=== PATIENT | female | born 1955 | race African-American/Black ===

== ENCOUNTER 2021-09-26 05:18 | Day surgery (SDC) | payer BC, SELFPAY ==
[2021-09-19 15:51] LABS: Absolute Lymphocyte Count 4.14 X10^3/uL (0.83-4.51); Basophil# 0.08 X10^3/uL; Basophil% 0.7 % (0-1); Eosinophil# 0.19 X10^3/uL; Eosinophils% 1.7 % (0-5); Hematocrit 40.6 % (37-47); Hemoglobin 13.2 g/dL (12.0-15.0); Lymphocyte # 4.14 X10^3/ul (0.83-4.51); Lymphocyte % 36.3 % (19-41); Mean Corp Hgb Conc 32.5 g/dL (32-36); Mean Corpuscular Hgb 28.9 pg (27.0-32.0); Mean Corpuscular Volume 88.8 fL (81-99); Mean Platelet Vol. 9.2 fl (6.2-12.0); Monocyte# 0.91 X10^3/uL; NRBC Flagged by Analyzer 0 % (0-5); Neutrophil # 6.03 X10^3/uL (2.7-7.7); Neutrophil % 52.9 % (47-70); Platelet Count 327 K/mm3 (150-450); RBC Distribution Width CV 12.4 % (11.6-14.6); RBC Distribution Width SD 40.3 fl (35.1-43.9); Red Blood Count 4.57 M/mm3 (4.2-5.4); White Blood Count 11.4 K/mm3 (4.4-11.0)
[2021-09-19 16:03] LABS: International Normalized Ratio 1.1; Prothrombin Time (Protime)PT. 13.2 SECONDS (11.7-14.9)
[2021-09-19 16:04] LABS: Partial Thromboplast Time 25.4 Seconds (24.1-36.2)
[2021-09-19 16:19] LABS: Anion Gap 7 (5-15); BUN 12 mg/dL (7-18); BUN/Creat Ratio 13.4 RATIO (10-20); Calcium,Total 9.3 mg/dL (8.5-10.1); Chloride 105 mmol/L (98-107); EST Glomerular Filtration Rate 67 mL/min (>60); Est Glom Filt Rate - Afr Amer 82 mL/min (>60); Glucose 104 mg/dL (74-106); Potassium 3.8 mmol/L (3.5-5.1); Sodium Level 139 mmol/L (136-145)
[2021-09-19 16:27] LABS: Hemoglobin A1c 6.8 % (3.8-5.6)
[2021-09-26] VITALS (11 sets, daily range): BP systolic 106–137; BP diastolic 55–72; PULSE 66–90; RESP 16–18; TEMP 35.8–37.2; O2SAT 94–100; BMI 23.3
--- NOTE | 2021-09-26 | KNEE_PTH ---
PATIENT: CHELITA BUSCH LOC: [facility] – [place] U#:[id number] AGE/SX: 65/F ROOM: RE09/26/[address]: Dr. Reed Lopez DO : 1955 BED: DIS: 09/26/2021 SPEC #: [id number] RECD: 09/26/21 11:13 STATUS: JOSE F GERARDO #: [id number] MAYRA: 09/26/21 00:[address]: Reed Lopez DEPT: SURGICAL PATHOLOGY RECD BY: Gabriel Pitts ENTERED: 09/26/21 11:13 SP TYPE: TOTAL KNEE OTHR DR: Dr. Zoila Sweeney DO Tissues: Knee, NOS Procedures: Decalcification bone/plaque Surgery Specimen Level IV HEADER OPERATION: ERAS, total knee replacement robotic arm assist PRE-OP DIAGNOSIS: Grade 4 osteoarthritis left knee TISSUE SUBMITTED: Left knee bone MICROSCOPIC DIAGNOSIS Bone and tissue of left knee, total knee resection: Severe degenerative joint disease. Soft tissue with vessel friend containing microcalcifications. AM:chayo 09/29/2021 MICROSCOPIC DESCRIPTION Slides are reviewed. GROSS DESCRIPTION Received is one container designated left knee bone. The specimen consists of multiple fragments of ramires-yellow bone measuring in aggregate 16 x 9 x 2 cm. Also in the specimen container are multiple fragments of yellow-white soft tissue measuring in aggregate 2 x 1 x 0.6 cm. A number of bony fragments contain articular surfaces consistent with tibial plateau and femoral condyle and displaying prominent osteophyte formation, eburnation, and bone erosion. Technical Specialist Cytogenetics sections are submitted in two cassettes as follows: 1 - soft tissue, 2 - bone after decalcification. / AM:chayo 09/26/2021 TC:5 [facility]: [id number], [id number]
[2021-09-26] MEDS: Celecoxib 200 MG Capsule 400 MG PO (06:02)
[2021-09-26] MEDS: Acetaminophen 500 MG Tablet 1000 MG PO (06:03)
[2021-09-26] MEDS: Gabapentin 600 MG Tablet PO (06:03)
[2021-09-26 06:11] LABS: Bedside Glucose 296 mg/dL (70-110)
[2021-09-26] MEDS: Lactated Ringers 1,000 ML 15 ML IV (06:13)
[2021-09-26] MEDS: Insulin Lispro 100 UNIT/ML INSULN.PEN SC (06:15)
[2021-09-26] MEDS: Lactated Ringers 1,000 ML 125 ML IV (07:00)
[2021-09-26] MEDS: Cefazolin 2 GM in 0.9% Normal Saline 100 ML IV (07:45)
[2021-09-26] MEDS: TXA 1000mg in NS100 100ml (IVPB at Incision) 660 MG IV (07:55)
[2021-09-26] MEDS: dexAMETHasone 10 MG/ML Vial IV (08:00)
[2021-09-26] MEDS: Lactated Ringers 1,000 ML 999 ML IV (08:30)
[2021-09-26] MEDS: TXA 1000mg in NS100 100ml (IVPB at Closure) 660 MG IV (08:54)
--- NOTE | 2021-09-26 09:09 | RAD_ITS ---
STUDY: X-RAY - LEFT KNEE REASON FOR EXAM: Female, 65 years old. New Total Hip Arthroplasty TECHNIQUE: 2 view(s) of the knee. COMPARISON: None. FINDINGS: There is a 3 component total knee arthroplasty in anatomic position. There are expected post-operative findings. There are no complications. No other significant abnormality is identified. RAD/Knee 1 or 2 Views IMPRESSION: Total knee arthroplasty in anatomic alignment without complications. Electronically Signed: Bhaskar Santiago MD at 12:39 EST , Service support ,
--- NOTE | 2021-09-26 09:11 | PCM.OPRPT ---
Report of Operation Date of Procedure: 09/26/21 Pre-Operative Diagnosis: Post-traumatic OA with retained hardware s/p ACL reconstruction left knee Post-Operative Diagnosis: same Surgery/Procedure Performed:: Removal of tibial hardware, TKR left knee Surgeon: Reed Lopez special tax auditor: Bhaskar Spencer Type of Anesthesia: Spinal Anesthesiologist: Tyson Tyson Estimated Blood Loss (mL): 20 cc Fluids Replaced: 1000 cc crystalloid Admit VTE Documentation VTE Present on Admission: No VTE Mechan Device Prophylaxis: SCD's and Thigh High DONALD Hose VTE Pharm Prophylaxis ordered?: Yes
[2021-09-26 10:11] LABS: Bedside Glucose 167 mg/dL (70-110)
[2021-09-26] MEDS: Scopolamine 1mg/72hr Patch 1 PATCH TD (10:12)
== END 2021-09-26 23:59 | disposition home or self-care (01) ==
LOC: SDC 05:22 → AC 05:23
PROVIDERS: Anesthesiology; PCP Family Medicine; Referring Provider Orthopaedic Surgery; Visit Provider Orthopaedic Surgery
PROC: 0SRD0JZ Replacement of Left Knee Joint with Synthetic Substitute, Open Approach (ICD-10-PCS; CPT 27447; principal; 2021-09-26 07:00)
DX: M17.32 Unilateral post-traumatic osteoarthritis, left knee (principal); J44.9 Chronic obstructive pulmonary disease, unspecified; E11.9 Type 2 diabetes mellitus without complications; Z47.2 Encounter for removal of internal fixation device; E78.00 Pure hypercholesterolemia, unspecified; I25.2 Old myocardial infarction; K76.0 Fatty (change of) liver, not elsewhere classified; I10 Essential (primary) hypertension; F41.9 Anxiety disorder, unspecified; M19.90 Unspecified osteoarthritis, unspecified site; K21.9 Gastro-esophageal reflux disease without esophagitis; G25.81 Restless legs syndrome; Z79.84 Long term (current) use of oral hypoglycemic drugs; Z79.82 Long term (current) use of aspirin; Z79.899 Other long term (current) drug therapy
CPT/HCPCS: 20680; 27447; 01402; 36415; 73560; 80048; 82962; 83036; 83735; 85025; 85610; 85730; 87081; 88305; 88311; 97162; C1776; J7030; J7120; J2405

== ENCOUNTER 2021-11-29 09:15 | Outpatient (RCR) | payer BC, SELFPAY ==
[2021-11-15 08:16] VITALS: BP 161/88; PULSE 116; TEMP 35.5; BMI 21.2
--- NOTE | 2021-11-15 08:59 | PCM.WC.HP ---
History of Present Illness Date of Service: 11/15/21 Chief Complaint: Dehiscent, infected surgical wound, left knee History of Wound: This 65-year-old female who presents as a referral from her orthopedic surgeon relative to dehiscent, infected surgical wound on the left anterior knee. Patient initially underwent left total knee replacement surgery in 1987. She required replacement of her left knee hardware, the procedure which was performed on September 26, 2021. Her most recent revisional surgical procedure was performed by Dr. Reed Lopez. Approximately 2 weeks postop, the karyn were removed from her surgical incision, and her surgical incision busted open. She suffered a dehiscence, which subsequently became infected. The patient has undergone 2 courses of oral amoxicillin. She is currently on her second course. She relates some small amount of drainage from the inferior portion of the dehiscent incision. She denies constitutional symptoms of widespread infection, such as fever, sweats and chills, etc. She is currently ambulatory with the aid of crutches. Patient is a known diabetic. [facility], [facility] Medical History (Updated 11/15/21 @ 09:[address] Arvin Parra MD) Anxiety Arthritis Back pain Cardiology follow-up encounter COPD (chronic obstructive pulmonary disease) Diabetes Diabetes mellitus Dietary restriction Fatty liver Gastric reflux High cholesterol History of ankle fracture History of echocardiogram History of edema History of heart attack History of myocardial infarction History of pain when walking History of stress test Hx of mitral valve prolapse Hyperlipidemia Hypertension Low iron Lumbar disc disease Osteoarthritis (arthritis due to wear and tear of joints) Restless legs Scoliosis Smoker Surgical wound dehiscence Tobacco abuse Tobacco abuse counseling Wears glasses Wound infection after surgery Home Medications Healthy Beets 1 cap PO/SL DAILY 09/12/21 [History Last Taken Unknown] albuterol sulfate [ProAir HFA] 1 inh INHALATION Q6H PRN 09/12/21 [History Last Taken Unknown] aspirin [Aspir-Low] 81 mg PO DAILY 09/12/21 [History Last Taken Unknown] cholecalciferol (vitamin D3) [Vitamin D3] 125 mcg PO DAILY 09/12/21 [History Last Taken Unknown] clopidogrel [Plavix] 75 mg PO DAILY 09/12/21 [History Last Taken Unknown] empagliflozin [Jardiance] 25 mg PO DAILY 09/12/21 [History Last Taken Unknown] ferrous sulfate [iron] 325 mg PO DAILY 09/12/21 [History Last Taken Unknown] fluticasone propion-salmeterol [Advair Diskus] 1 inh INHALATION BID 09/12/21 [History Last Taken Unknown] isosorbide mononitrate 60 mg PO DAILY 09/12/21 [History Last Taken Unknown] losartan 50 mg PO DAILY 09/12/21 [History Last Taken Unknown] metformin 1,000 mg PO BID 09/12/21 [History Last Taken Unknown] metoprolol tartrate 50 mg PO BID 09/12/21 [History Last Taken Unknown] pantoprazole 20 mg PO DAILY 09/12/21 [History Last Taken Unknown] pravastatin 20 mg PO QHS 09/12/21 [History Last Taken Unknown] ropinirole 0.5 mg PO QHS 09/12/21 [History Last Taken Unknown] tiotropium bromide [Spiriva Respimat] 2 puff INHALATION DAILY 09/12/21 [History Last Taken Unknown] acetaminophen 500 mg PO Q6H PRN 11/15/21 [History Last Taken Unknown] amoxicillin-pot clavulanate 1 tab PO BID 11/15/21 [History Last Taken Unknown] cyanocobalamin (vitamin B-12) [B-12 DOTS] 500 mcg PO DAILY 11/15/21 [History Last Taken Unknown] empagliflozin [Jardiance] 25 mg PO DAILY 11/15/21 [History Last Taken Unknown] fluticasone propion-salmeterol [Advair Diskus] 1 inh INHALATION BID 11/15/21 [History Last Taken Unknown] heart beet 500 mg DAILY 11/15/21 [History Last Taken Unknown] lactobacillus combination no.4 [Probiotic] 3,000 mmu cells PO DAILY 11/15/21 [History Last Taken Unknown] oxycodone 5 mg PO BID PRN 11/15/21 [History Last Taken Unknown] sertraline [Zoloft] 25 mg PO DAILY 11/15/21 [History Last Taken Unknown] tiotropium bromide [Spiriva Respimat] 2 puff INHALATION DAILY 11/15/21 [History Last Taken Unknown] Allergy/AdvReac Type Severity Reaction Status Date / Time cortisone Allergy Rash Verified 09/26/21 05:55 glyburide Allergy Swelling Verified 09/26/21 05:55 latex Allergy Rash Verified 09/26/21 05:55 Sulfa (Sulfonamide Allergy Rash Verified 09/26/21 05:55 Antibiotics) Surgical History History of ankle surgery History of bunionectomy History of cardiac catheterization Hx of breast surgery Hx of heart artery stent Hx of knee surgery Social History Smoking Status: Current every day smoker tobacco type: cigarettes Vital Signs Vital Signs Vital Signs: 11/15/21 08:16 Temperature 95.9 F L Temperature Source Temporal Pulse Rate 116 H Blood Pressure 161/88 H Blood Pressure Mean 112 Blood Pressure Source Monitor Weight Weight: 136 lb Body Mass Index (BMI) 21.2 Physical Exam Const alert, oriented x3, no apparent distress, average body habitus and well nourished Constitutional Narrative: The patient is of average body habitus. General Appearance: cooperative, comfortable, well kempt and well developed Orientation / Consciousness: awake, oriented to person, oriented to place and oriented to time Exam Limitations: no limitations HEENT normocephalic, head/scalp atraumatic and hearing grossly normal bilaterally Head and Scalp: normal to inspection, normocephalic and atraumatic External Ear: external ears normal Eyes PERRL and EOMs intact bilaterally General Eye: normal appearance of both eyes Resp normal respiratory effort, normal air movement, no retractions and no use of accessory muscles Effort and Inspection: able to speak in complete sentences and symmetric chest movement Extremity no calf tenderness and no pedal edema Extremity Narrative: There is no significant swelling or edema in the patient's lower extremities. No significant chronic skin changes. General Extremity: Negative for clubbing or cyanosis Skin Wound Narrative: A dehiscent vertical surgical incision is noted on the anterior aspect of the left knee. There is a large eschar present. Mild isis-incisional erythema is noted. There is slight drainage noted from the inferior portion of the incision. Dimensions are documented elsewhere. There is a large amount of bioburden and nonviable tissue. Neuro oriented x3, CN's II-XII intact bilaterally and moves all extremities Sensorium / Orientation: awake, alert, oriented to person, oriented to place and oriented to time Psych Appearance: grossly normal and appropriate Attitude: calm Activity / Motor Behavior: appropriate eye contact Speech: normal speech Mood & Affect: euthymic mood Thought Process: normal thought process Thought Content: normal thought content Attention / Concentration: attention grossly intact Debridement Note Debridement Note Wound debrided: Left anterior knee Laterality: Left Type of Debridement: Excisional debridement Anesthesia Used: 5% Lidocaine Gel Depth: Down to and including healthy tissue and in the subcutaneous layer Percentage of wound debrided: 100 Instrument Used: 5mm curette, Forceps and - (Cuticle scissors) Tissue Removed: Bioburden, eschar, and nonviable tissue Severity: Fat Layer Exposed Amount of bleeding with debridement: None Patient tolerated procedure: Patient tolerated procedure well Post-Debridement Measurements and Additional Note: Post-Debridement Measurements/Treatment - Nurse 1 - General Ulcer Assessment Start: 11/15/21 08:15 Freq: Status: Active Protocol: ROGELIO Activity Type Activity Date Activity User E-Sign Co-Sign Detail Recorded Client Recorded Date Recorded By Document 11/15/21 08:16 KO [id number] 11/15/21 08:31 KO 11/15/21 08:16 - Today's Visit Information Type of service Initial Visit Arrival Mode Ambulatory,Cane Patient Identification Verified (Name & Yes ) Patient Requires Transmission-Based No Precautions Safety Precautions NA Height and Weight Height 5 ft 7 in Weight 136 lb Weight in Pounds 136.0 lbs Body Mass Index (BMI) 21.2 BMI Classification Normal BSA - Gia 1.72 Vital Signs Temperature (97.8 F-99.1 F) 95.9 F L Temperature Source Temporal Pulse Rate (60-100) 116 H Pulse Location Monitor Blood Pressure (90/60-120/80) 161/88 H Blood Pressure Mean 112 Source Monitor History Since Last Visit- (Skip if this is Patient's initial visit) Has dressing in place as prescribed Yes Left Footwear Regular Shoe Right Footwear Regular Shoe Pain Scale: 0-10 Numeric Is Patient Pain Free? Yes [facility] Nurse 1 - General Ulcer Measurement Start: 11/15/21 08:15 Freq: Status: Active Protocol: Activity Type Activity Date Activity User E-Sign Co-Sign Detail Recorded Client Recorded Date Recorded By Document 11/15/21 08:16 KO [id number] 11/15/21 08:31 KO 11/15/21 08:16 Wound Center Nurse 1 #1 Left knee -Combined with other wound No -Current Size (cm) - Length 7.8 -Current Size (cm) - Width 1.2 -Current Size (cm) - Depth 0.4 -Total Square Cm 9.36 -Photo Taken No -Tunneling No -Undermining/Tunneling No -Circular Undermining No -Change in Wound Grade/Stage No -Exudate Amt Medium -Exudate Type Serosanguineous -Wound Margin Distinct, Outline Attached -Granulation Amt Small (1-33%) -Granulation Quality Carefree -Slough/Fibrin No -Necrosis Amt Medium (34-66%) -Necrotic Tissue Type Eschar -Structure Exposed N/A -Texture (Isis-wound Skin Appearance) Assessed, Scarring -Moisture (Isis-wound Skin Appearance) No Abnormality, Assessed -Color (Isis-wound Skin Appearance) No Abnormality, Assessed -Temperature (Isis-wound Skin No Abnormality Appearance) (Pt Warm) -Tenderness on Palpation (Isis-wound No Skin Appearance) -Ulcer Cleansing Rinsed/ Irrigated with Saline -Foul Odor after Cleansing No -Anesthetic Used 4% Lidocaine Solution Assessment/Plan Assessment/Plan (1) Surgical wound dehiscence: CODE(S): T81.31XA - Disruption of external operation (surgical) wound, not elsewhere classified, initial encounter QUALIFIERS: Encounter type: initial encounter Qualified Code(s): T81.31XA - Disruption of external operation (surgical) wound, not elsewhere classified, initial encounter (2) Wound infection after surgery: CODE(S): T81.49XA - Infection following a procedure, other surgical site, initial encounter (3) Osteoarthritis (arthritis due to wear and tear of joints): CODE(S): M19.90 - Unspecified osteoarthritis, unspecified site (4) Diabetes mellitus: CODE(S): E11.9 - Type 2 diabetes mellitus without complications QUALIFIERS: Diabetes mellitus type: type 2 Diabetes mellitus long term care phlebotomist insulin use: without half-way use Laterality: left (5) Hyperlipidemia: CODE(S): E78.5 - Hyperlipidemia, unspecified (6) History of myocardial infarction: CODE(S): I25.2 - Old myocardial infarction (7) Hypertension: CODE(S): I10 - Essential (primary) hypertension (8) Scoliosis: CODE(S): M41.9 - Scoliosis, unspecified (9) Lumbar disc disease: CODE(S): M51.9 - Unspecified thoracic, thoracolumbar and lumbosacral intervertebral disc disorder (10) Tobacco abuse: CODE(S): Z72.0 - Tobacco use (11) Tobacco abuse counseling: CODE(S): Z71.6 - Tobacco abuse counseling PLAN: Is a 65-year-old female with a dehiscent, infected surgical wound on the left anterior knee. She is currently on her second course of amoxicillin, and has been advised to continue the medication until completed. Swab cultures have been obtained today for aerobic and anaerobic bacterial growth. We will await these results. We are to initiate the use of collagenase Santyl topically, which will be applied by the patient on a daily basis. She has been instructed in the appropriate means of application. A prescription has been provided. The patient has been advised to stop smoking. She has been advised to consume a healthy, well-balanced diet. Optimization of her glycemic control has been recommended. We are to obtain routine laboratory studies, which will include a CBC, comprehensive metabolic profile, hemoglobin A1c, and serum prealbumin. At this juncture, her dehiscent wound appears to be relatively superficial, and imaging studies are not felt to be warranted at this time. It is doubtful that there is a deep, underlying infection involving the patient's joint hardware. Patient is to return in 1 week for reassessment. Total time: 62 minutes
[2021-11-16 10:25] LABS: Erythrocyte Sedimentation Rate 6 mm/hr (0-30)
[2021-11-16 10:27] LABS: Absolute Lymphocyte Count 3.45 X10^3/uL (0.83-4.51); Absolute Neutrophil Count 3.8 X10^3/uL (2.0-7.7); Basophil# 0.07 X10^3/uL; Basophil% 0.8 % (0-1); Eosinophils% 3.6 % (0-5); Hematocrit 37.7 % (37-47); Hemoglobin 12.8 g/dL (12.0-15.0); Lymphocyte # 3.45 X10^3/ul (0.83-4.51); Lymphocyte % 40.8 % (19-41); Mean Corpuscular Volume 88.3 fL (81-99); Mean Platelet Vol. 9.4 fl (6.2-12.0); Monocyte# 0.81 X10^3/uL; Monocyte% 9.6 % (0-10); NRBC Flagged by Analyzer 0 % (0-5); Neutrophil # 3.78 X10^3/uL (2.7-7.7); Neutrophil % 44.7 % (47-70); Platelet Count 338 K/mm3 (150-450); RBC Distribution Width CV 12.6 % (11.6-14.6); RBC Distribution Width SD 40.8 fl (35.1-43.9); Red Blood Count 4.27 M/mm3 (4.2-5.4); White Blood Count 8.5 K/mm3 (4.4-11.0)
[2021-11-16 10:50] LABS: Hemoglobin A1c 6.9 % (3.8-5.6)
[2021-11-16 11:00] LABS: ALB/GLOB Ratio 1.2 RATIO (0.9-2.4); AST(SGOT) 12 U/L (15-37); Alanine Aminotransfer ALT/SGPT 23 U/L (13-56); Albumin, Serum 3.8 g/dL (3.2-5.0); Alkaline Phosphatase 70 U/L (45-117); Anion Gap 6 (5-15); BUN 9 mg/dL (7-18); BUN/Creat Ratio 10.8 RATIO (10-20); Calcium,Total 9.7 mg/dL (8.5-10.1); Chloride 109 mmol/L (98-107); Creatinine, Serum 0.83 mg/dL (0.55-1.02); EST Glomerular Filtration Rate 73 mL/min (>60); Est Glom Filt Rate - Afr Amer 89 mL/min (>60); Estimated Creatinine Clearance 67.47 ml/min; Globulin 3.3 g/dL (2.2-4.2); Glucose 178 mg/dL (74-106); Prealbumin 28.3 mg/dL (20.0-40.0); Protein, Total 7.1 g/dL (6.4-8.2); Sodium Level 140 mmol/L (136-145)
[2021-11-29 09:13] VITALS: BP 142/81; PULSE 91; TEMP 36.2; BMI 21.2
--- NOTE | 2021-11-29 09:40 | PCM.WC.HP ---
History of Present Illness Date of Service: 11/29/21 Chief Complaint: Dehiscent, infected surgical wound, left knee History of Wound: This 65-year-old female who presents as a referral from her orthopedic surgeon relative to dehiscent, infected surgical wound on the left anterior knee. Patient initially underwent left total knee replacement surgery in 1987. She required replacement of her left knee hardware, the procedure which was performed on September 26, 2021. Her most recent revisional surgical procedure was performed by Dr. Reed Lopez. Approximately 2 weeks postop, the karyn were removed from her surgical incision, and her surgical incision busted open. She suffered a dehiscence, which subsequently became infected. The patient has undergone 2 courses of oral amoxicillin. She is currently on her second course. She relates some small amount of drainage from the inferior portion of the dehiscent incision. She denies constitutional symptoms of widespread infection, such as fever, sweats and chills, etc. She is currently ambulatory with the aid of crutches. Patient is a known diabetic. [facility] Medical History Anxiety Arthritis Back pain Cardiology follow-up encounter COPD (chronic obstructive pulmonary disease) Diabetes Diabetes mellitus Dietary restriction Fatty liver Gastric reflux High cholesterol History of ankle fracture History of echocardiogram History of edema History of heart attack History of myocardial infarction History of pain when walking History of stress test Hx of mitral valve prolapse Hyperlipidemia Hypertension Low iron Lumbar disc disease Osteoarthritis (arthritis due to wear and tear of joints) Restless legs Scoliosis Smoker Surgical wound dehiscence Tobacco abuse Tobacco abuse counseling Wears glasses Wound infection after surgery Home Medications Healthy Beets 1 cap PO/SL DAILY 09/12/21 [History Last Taken Unknown] albuterol sulfate [ProAir HFA] 1 inh INHALATION Q6H PRN 09/12/21 [History Last Taken Unknown] aspirin [Aspir-Low] 81 mg PO DAILY 09/12/21 [History Last Taken Unknown] cholecalciferol (vitamin D3) [Vitamin D3] 125 mcg PO DAILY 09/12/21 [History Last Taken Unknown] clopidogrel [Plavix] 75 mg PO DAILY 09/12/21 [History Last Taken Unknown] empagliflozin [Jardiance] 25 mg PO DAILY 09/12/21 [History Last Taken Unknown] ferrous sulfate [iron] 325 mg PO DAILY 09/12/21 [History Last Taken Unknown] fluticasone propion-salmeterol [Advair Diskus] 1 inh INHALATION BID 09/12/21 [History Last Taken Unknown] isosorbide mononitrate 60 mg PO DAILY 09/12/21 [History Last Taken Unknown] losartan 50 mg PO DAILY 09/12/21 [History Last Taken Unknown] metformin 1,000 mg PO BID 09/12/21 [History Last Taken Unknown] metoprolol tartrate 50 mg PO BID 09/12/21 [History Last Taken Unknown] pantoprazole 20 mg PO DAILY 09/12/21 [History Last Taken Unknown] pravastatin 20 mg PO QHS 09/12/21 [History Last Taken Unknown] ropinirole 0.5 mg PO QHS 09/12/21 [History Last Taken Unknown] tiotropium bromide [Spiriva Respimat] 2 puff INHALATION DAILY 09/12/21 [History Last Taken Unknown] acetaminophen 500 mg PO Q6H PRN 11/15/21 [History Last Taken Unknown] amoxicillin-pot clavulanate 1 tab PO BID 11/15/21 [History Last Taken Unknown] cyanocobalamin (vitamin B-12) [B-12 DOTS] 500 mcg PO DAILY 11/15/21 [History Last Taken Unknown] empagliflozin [Jardiance] 25 mg PO DAILY 11/15/21 [History Last Taken Unknown] fluticasone propion-salmeterol [Advair Diskus] 1 inh INHALATION BID 11/15/21 [History Last Taken Unknown] heart beet 500 mg DAILY 11/15/21 [History Last Taken Unknown] lactobacillus combination no.4 [Probiotic] 3,000 mmu cells PO DAILY 11/15/21 [History Last Taken Unknown] oxycodone 5 mg PO BID PRN 11/15/21 [History Last Taken Unknown] sertraline [Zoloft] 25 mg PO DAILY 11/15/21 [History Last Taken Unknown] tiotropium bromide [Spiriva Respimat] 2 puff INHALATION DAILY 11/15/21 [History Last Taken Unknown] Allergy/AdvReac Type Severity Reaction Status Date / Time cortisone Allergy Rash Verified 09/26/21 05:55 glyburide Allergy Swelling Verified 09/26/21 05:55 latex Allergy Rash Verified 09/26/21 05:55 Sulfa (Sulfonamide Allergy Rash Verified 09/26/21 05:55 Antibiotics) Surgical History History of ankle surgery History of bunionectomy History of cardiac catheterization Hx of breast surgery Hx of heart artery stent Hx of knee surgery Social History Smoking Status: Current every day smoker tobacco type: cigarettes Vital Signs Vital Signs Vital Signs: 11/29/21 09:13 Temperature 97.1 F L Temperature Source Temporal Pulse Rate 91 Blood Pressure 142/81 H Blood Pressure Mean 101 Weight Weight: 136 lb Body Mass Index (BMI) 21.2 Physical Exam Const alert, oriented x3, no apparent distress, average body habitus and well nourished General Appearance: cooperative, comfortable, well kempt and well developed Orientation / Consciousness: awake, oriented to person, oriented to place and oriented to time Exam Limitations: no limitations HEENT normocephalic, head/scalp atraumatic and hearing grossly normal bilaterally Head and Scalp: normal to inspection, normocephalic and atraumatic External Ear: external ears normal External Auditory Canal: EAC's normal Eyes PERRL and EOMs intact bilaterally General Eye: normal appearance of both eyes Resp normal respiratory effort, normal air movement, no retractions and no use of accessory muscles Effort and Inspection: able to speak in complete sentences Extremity no clubbing, cyanosis or edema, no calf tenderness and no pedal edema General Extremity: Negative for clubbing or cyanosis Skin Wound Narrative: The surgical wound dehiscence of the left knee persists. There is no sign of infection or cellulitis. Dimensions are documented elsewhere. There is a large amount of bioburden and nonviable exudative tissue. The size of the surgical wound appears to have diminished as compared to prior weeks. Neuro oriented x3, CN's II-XII intact bilaterally and moves all extremities Sensorium / Orientation: awake, alert, oriented to person, oriented to place and oriented to time Psych Appearance: grossly normal and appropriate Attitude: calm Activity / Motor Behavior: appropriate eye contact Speech: normal speech Mood & Affect: euthymic mood Thought Process: normal thought process Thought Content: normal thought content Attention / Concentration: attention grossly intact Debridement Note Debridement Note Wound debrided: Left knee, surgical wound dehiscence Laterality: Left Type of Debridement: Excisional debridement Anesthesia Used: 5% Lidocaine Gel Depth: Down to and including healthy tissue and in the subcutaneous layer Percentage of wound debrided: 100 Instrument Used: 3mm curette Tissue Removed: Bioburden and nonviable tissue Severity: Fat Layer Exposed Amount of bleeding with debridement: Mild Bleeding Controlled with: Compression and gauze Patient tolerated procedure: Patient tolerated procedure well Post-Debridement Measurements and Additional Note: Post-Debridement Measurements/Treatment WC - Nurse 1 - General Ulcer Assessment Start: 11/15/21 08:15 Freq: Status: Active Protocol: ROGELIO Activity Type Activity Date Activity User E-Sign Co-Sign Detail Recorded Client Recorded Date Recorded By Document 11/15/21 08:16 KO [id number] 11/15/21 08:31 AK Document 11/29/21 09:13 AK [id number] 11/29/21 09:14 AK 11/15/21 11/29/21 08:16 09:13 - Today's Visit Information Type of service Initial Visit Follow-up Visit (Physician/DEVOPS ARCHITECT ) Arrival Mode Ambulatory,Cane Ambulatory,Cane Patient Identification Verified (Name & Yes Yes ) Patient Requires Transmission-Based No No Precautions Safety Precautions NA NA Height and Weight Height 5 ft 7 in Weight 136 lb Weight in Pounds 136.0 lbs Body Mass Index (BMI) 21.2 21.2 BMI Classification Normal Normal BSA - Gia 1.72 Vital Signs Temperature (97.8 F-99.1 F) 95.9 F L 97.1 F L Temperature Source Temporal Temporal Pulse Rate (60-100) 116 H 91 Pulse Location Monitor Monitor Blood Pressure (90/60-120/80) 161/88 H 142/81 H Blood Pressure Mean 112 101 Source Monitor History Since Last Visit- (Skip if this is Patient's initial visit) Have you changed medications since your No last visit? Any new allergies or adverse reactions No Had a fall/change in ADL's that may No increase risk of falls Signs or symptoms of abuse and/or No neglect since last visit Have you been in the hospital since your No last visit? Has dressing in place as prescribed Yes Yes Has compression in place as prescribed N/A Has offloadiing in place as prescribed N/A Experienced any changes in pain level or No management Left Footwear Regular Shoe Regular Shoe Right Footwear Regular Shoe Regular Shoe Pain Scale: 0-10 Numeric Is Patient Pain Free? Yes Yes WC - Nurse 1 - General Ulcer Measurement Start: 11/15/21 08:15 Freq: Status: Active Protocol: Activity Type Activity Date Activity User E-Sign Co-Sign Detail Recorded Client Recorded Date Recorded By Document 11/15/21 08:16 PA [id number] 11/15/21 08:31 AK Document 11/29/21 09:13 AK [id number] 11/29/21 09:14 AK 11/15/21 11/29/21 08:16 09:13 Wound Center Nurse 1 #1 Left knee -Combined with other wound No No -Current Size (cm) - Length 7.8 6.7 -Current Size (cm) - Width 1.2 0.5 -Current Size (cm) - Depth 0.4 0.1 -Total Square Cm 9.36 3.35 -Photo Taken No No -Tunneling No No -Undermining/Tunneling No No -Circular Undermining No No -Change in Wound Grade/Stage No No -Exudate Amt Medium Medium -Exudate Type Serosanguineous Yellow/Green -Wound Margin Distinct, Distinct, Outline Outline Attached Attached -Granulation Amt Small (1-33%) -Granulation Quality [place] N/A -Slough/Fibrin No Yes -Necrosis Amt Medium (34-66%) Medium (34-66%) -Necrotic Tissue Type Eschar Adherent Slough -Structure Exposed N/A N/A -Texture (Isis-wound Skin Appearance) Assessed, Assessed, Scarring Scarring -Moisture (Isis-wound Skin Appearance) No Abnormality, No Abnormality, Assessed Assessed -Color (Isis-wound Skin Appearance) No Abnormality, No Abnormality, Assessed Assessed -Temperature (Isis-wound Skin No Abnormality No Abnormality Appearance) (Pt Warm) (Pt Warm) -Tenderness on Palpation (Isis-wound No No Skin Appearance) -Ulcer Cleansing Rinsed/ Rinsed/ Irrigated with Irrigated with Saline Saline -Foul Odor after Cleansing No No -Anesthetic Used 4% Lidocaine 4% Lidocaine Solution Solution CARROLL - Nurse 2 - General Ulcer CM Notes Start: 11/15/21 08:15 Freq: Status: Active Protocol: Activity Type Activity Date Activity User E-Sign Co-Sign Detail Recorded Client Recorded Date Recorded By Document 11/15/21 09:07 PL Desktop 11/15/21 09:08 PL Document 11/29/21 09:34 PL Desktop 11/29/21 09:35 PL 11/15/21 11/29/21 09:07 09:34 Wound Center Nurse 2 #1 Left knee -Time 08:43 09:25 -Correct Patient Yes Yes -Correct Side, Site, Position Yes Yes -Correct Procedure Yes Yes -Procedure Performed Yes Yes -Type of Procedure Debridement Debridement -Clinical Debridement Subcutaneous Subcutaneous -Tissue Removed Subcutaneous Subcutaneous -Post Debridement (cm) - Length 7.8 6.7 -Post Debridement (cm) - Width 1.2 0.5 -Post Debridement (cm) - Depth 0.4 0.2 -Total Square (Post) (cm) 9.36 3.35 -Area of Debridement (cm) - Length 7.8 6.7 -Area of Debridement (cm) - Width 1.2 0.5 -Total Square (Area) (cm) 9.36 3.35 -Tunneling No No -Undermining/Tunneling No No -Circular Undermining No No -Wound/Ulcer Outcome Not Healed Not Healed -Ulcer Cleansing Rinsed/ Rinsed/ Irrigated with Irrigated with Saline Saline -Foul Odor after Cleansing No No -Bioengineered Tissue No No -Bleeding Controlled with Pressure Pressure -Treatment Response Procedure Procedure Tolerated Well Tolerated Well -Debridement - Subq, 1st 20sq cm Yes Yes Pain Scale: 0-10 Numeric Is Patient Pain Free? Yes Yes WC - Nurse 3 - General Ulcer D/C NN Start: 11/15/21 08:15 Freq: Status: Active Protocol: Activity Type Activity Date Activity User E-Sign Co-Sign Detail Recorded Client Recorded Date Recorded By Document 11/15/21 10:00 PA [id number] 11/15/21 10:01 AK Document 11/29/21 09:35 PA [id number] 11/29/21 09:36 AK 11/15/21 11/29/21 10:00 09:35 Wound Care Nurse 3 #1 Left knee -Ulcer Cleansing Rinsed/ Rinsed/ Irrigated with Irrigated with Saline Saline -Foul Odor after Cleansing No No -Negative Pressure Wound Therapy N/A N/A -Primary Dressing Applied C Hydrogel ($) C Hydrogel ($) -Other Dressing santyl ordered -Primary Dressing Covered/Secured with Dry Gauze & Dry Gauze, Roll Gauze, Secured with Secured with Tape Tape Pain Scale: 0-10 Numeric Is Patient Pain Free? Yes Yes WC - Visit Discharge Discharge Condition Stable Transportation Private Auto Medication Reconcilliation completed & Yes provided to patient/care provider Clinical Summary of Care Provided Yes Lab / Micro Data Result Diagrams: 11/16/21 09:41 11/16/21 09:41 Assessment/Plan Assessment/Plan (1) Surgical wound dehiscence: CODE(S): T81.31XA - Disruption of external operation (surgical) wound, not elsewhere classified, initial encounter QUALIFIERS: Encounter type: initial encounter Qualified Code(s): T81.31XA - Disruption of external operation (surgical) wound, not elsewhere classified, initial encounter (2) Wound infection after surgery: CODE(S): T81.49XA - Infection following a procedure, other surgical site, initial encounter (3) Tobacco abuse: CODE(S): Z72.0 - Tobacco use (4) Tobacco abuse counseling: CODE(S): Z71.6 - Tobacco abuse counseling (5) Lumbar disc disease: CODE(S): M51.9 - Unspecified thoracic, thoracolumbar and lumbosacral intervertebral disc disorder (6) Scoliosis: CODE(S): M41.9 - Scoliosis, unspecified (7) Hypertension: CODE(S): I10 - Essential (primary) hypertension (8) History of myocardial infarction: CODE(S): I25.2 - Old myocardial infarction (9) Hyperlipidemia: CODE(S): E78.5 - Hyperlipidemia, unspecified (10) Diabetes mellitus: CODE(S): E11.9 - Type 2 diabetes mellitus without complications QUALIFIERS: Diabetes mellitus type: type 2 Diabetes mellitus manager terminal insulin use: without care home use Laterality: left (11) Osteoarthritis (arthritis due to wear and tear of joints): CODE(S): M19.90 - Unspecified osteoarthritis, unspecified site PLAN: This is s a 65-year-old female with a dehiscent, infected surgical wound on the left anterior knee. She has completed her second course of oral amoxicillin. Swab cultures have been recently obtained, and cultures have been negative for aerobic and anaerobic bacterial growth. Routine laboratory studies have been obtained, with results as follows: Glucose 178, BUN 9, creatinine 0.83, total protein 7.1, albumin 3.8, calcium 9.7, AST 12, alkaline phosphatase 70, ALT 23, total bilirubin 0.30, sodium 140, potassium 4.0, chloride 109, serum prealbumin 28.3, hemoglobin A1c 6.9, white blood count 8.5, hemoglobin 12.8, hematocrit 37.7, platelets 338,000, sed rate 6. We are to continue the use of collagenase Santyl topically, which will be applied by the patient on a daily basis. She has been instructed in the appropriate means of application. A prescription has been provided. The patient has been advised to stop smoking. She has been advised to consume a healthy, well-balanced diet. Optimization of her glycemic control has been recommended. At this juncture, her dehiscent wound appears to be relatively superficial, and imaging studies are not felt to be warranted at this time. It is doubtful that there is a deep, underlying infection involving the patient's joint hardware. Patient is to return in 1 week for reassessment. Total time: 29 minutes
== END 2021-12-01 23:59 | disposition home or self-care (01) ==
LOC: WC 09:15
PROVIDERS: PCP Family Medicine; Visit Provider Surgery
DX: T81.49XA Infection following a procedure, other surgical site, initial encounter (principal); J44.9 Chronic obstructive pulmonary disease, unspecified; E11.9 Type 2 diabetes mellitus without complications; M41.9 Scoliosis, unspecified; E78.00 Pure hypercholesterolemia, unspecified; F17.210 Nicotine dependence, cigarettes, uncomplicated; M19.90 Unspecified osteoarthritis, unspecified site; I10 Essential (primary) hypertension; E78.5 Hyperlipidemia, unspecified; Z71.6 Tobacco abuse counseling; T81.31XA Disruption of external operation (surgical) wound, not elsewhere classified, initial encounter; I25.2 Old myocardial infarction; M51.9 Unspecified thoracic, thoracolumbar and lumbosacral intervertebral disc disorder; Z72.0 Tobacco use
CPT/HCPCS: 11042; 36415; 80053; 83036; 84134; 85025; 85652; 87070; 87075; 87205; 99213; G0463

== ENCOUNTER 2021-12-29 14:30 | Outpatient (RCR) | payer BC, SELFPAY ==
[2021-12-02 00:47] VITALS: BP 142/81; PULSE 91; TEMP 36.2; BMI 21.2
[2021-12-06 09:03] VITALS: BP 140/75; PULSE 101; RESP 16; TEMP 36.4; BMI 21.2
--- NOTE | 2021-12-06 09:46 | HP.PCM_ITS ---
History of Present Illness Date of Service: 12/06/21 Chief Complaint: Dehiscent, infected surgical wound, left knee History of Wound: This 65-year-old female who presented as a referral from her orthopedic surgeon relative to dehiscent, infected surgical wound on the left anterior knee. Patient initially underwent left total knee replacement surgery in 1987. She required replacement of her left knee hardware, the procedure which was performed on September 26, 2021. Her most recent revisional surgical procedure was performed by Dr. Reed Lopez. Approximately 2 weeks postop, the karyn were removed from her surgical incision, and her surgical incision busted open. She suffered a dehiscence, which subsequently became infected. The patient has undergone 2 courses of oral amoxicillin. She is currently on her second course. She relates some small amount of drainage from the inferior portion of the dehiscent incision. She denies constitutional symptoms of widespread infection, such as fever, sweats and chills, etc. She is currently ambulatory with the aid of crutches. Patient is a known diabetic. FORMERLY [facility], [facility] Medical History Anxiety Arthritis Back pain Cardiology follow-up encounter COPD (chronic obstructive pulmonary disease) Diabetes Diabetes mellitus Dietary restriction Fatty liver Gastric reflux High cholesterol History of ankle fracture History of echocardiogram History of edema History of heart attack History of myocardial infarction History of pain when walking History of stress test Hx of mitral valve prolapse Hyperlipidemia Hypertension Low iron Lumbar disc disease Osteoarthritis (arthritis due to wear and tear of joints) Restless legs Scoliosis Smoker Surgical wound dehiscence Tobacco abuse Tobacco abuse counseling Wears glasses Wound infection after surgery Home Medications Healthy Beets 1 cap PO/SL DAILY 09/12/21 [History Last Taken Unknown] albuterol sulfate [ProAir HFA] 1 inh INHALATION Q6H PRN 09/12/21 [History Last Taken Unknown] aspirin [Aspir-Low] 81 mg PO DAILY 09/12/21 [History Last Taken Unknown] cholecalciferol (vitamin D3) [Vitamin D3] 125 mcg PO DAILY 09/12/21 [History Last Taken Unknown] clopidogrel [Plavix] 75 mg PO DAILY 09/12/21 [History Last Taken Unknown] empagliflozin [Jardiance] 25 mg PO DAILY 09/12/21 [History Last Taken Unknown] ferrous sulfate [iron] 325 mg PO DAILY 09/12/21 [History Last Taken Unknown] fluticasone propion-salmeterol [Advair Diskus] 1 inh INHALATION BID 09/12/21 [History Last Taken Unknown] isosorbide mononitrate 60 mg PO DAILY 09/12/21 [History Last Taken Unknown] losartan 50 mg PO DAILY 09/12/21 [History Last Taken Unknown] metformin 1,000 mg PO BID 09/12/21 [History Last Taken Unknown] metoprolol tartrate 50 mg PO BID 09/12/21 [History Last Taken Unknown] pantoprazole 20 mg PO DAILY 09/12/21 [History Last Taken Unknown] pravastatin 20 mg PO QHS 09/12/21 [History Last Taken Unknown] ropinirole 0.5 mg PO QHS 09/12/21 [History Last Taken Unknown] tiotropium bromide [Spiriva Respimat] 2 puff INHALATION DAILY 09/12/21 [History Last Taken Unknown] acetaminophen 500 mg PO Q6H PRN 11/15/21 [History Last Taken Unknown] amoxicillin-pot clavulanate 1 tab PO BID 11/15/21 [History Last Taken Unknown] cyanocobalamin (vitamin B-12) [B-12 DOTS] 500 mcg PO DAILY 11/15/21 [History Last Taken Unknown] empagliflozin [Jardiance] 25 mg PO DAILY 11/15/21 [History Last Taken Unknown] fluticasone propion-salmeterol [Advair Diskus] 1 inh INHALATION BID 11/15/21 [History Last Taken Unknown] heart beet 500 mg DAILY 11/15/21 [History Last Taken Unknown] lactobacillus combination no.4 [Probiotic] 3,000 mmu cells PO DAILY 11/15/21 [History Last Taken Unknown] oxycodone 5 mg PO BID PRN 11/15/21 [History Last Taken Unknown] sertraline [Zoloft] 25 mg PO DAILY 11/15/21 [History Last Taken Unknown] tiotropium bromide [Spiriva Respimat] 2 puff INHALATION DAILY 11/15/21 [History Last Taken Unknown] Allergy/AdvReac Type Severity Reaction Status Date / Time cortisone Allergy Rash Verified 09/26/21 05:55 glyburide Allergy Swelling Verified 09/26/21 05:55 latex Allergy Rash Verified 09/26/21 05:55 Sulfa (Sulfonamide Allergy Rash Verified 09/26/21 05:55 Antibiotics) Surgical History History of ankle surgery History of bunionectomy History of cardiac catheterization Hx of breast surgery Hx of heart artery stent Hx of knee surgery Social History Smoking Status: Current every day smoker tobacco type: cigarettes Vital Signs Vital Signs Vital Signs: 12/06/21 09:03 Temperature 97.5 F L Temperature Source Temporal Pulse Rate 101 H Respiratory Rate 16 Blood Pressure 140/75 H Blood Pressure Mean 96 Blood Pressure Source Monitor Weight Weight: 136 lb Body Mass Index (BMI) 21.2 Physical Exam Const alert, oriented x3, no apparent distress, average body habitus and well nourished General Appearance: cooperative, comfortable, well kempt and well developed Orientation / Consciousness: awake, oriented to person, oriented to place and oriented to time HEENT normocephalic and head/scalp atraumatic Head and Scalp: normal to inspection, normocephalic and atraumatic External Ear: external ears normal Eyes PERRL and EOMs intact bilaterally General Eye: normal appearance of both eyes Resp normal respiratory effort, normal air movement, no retractions and no use of accessory muscles Effort and Inspection: able to speak in complete sentences Extremity full ROM, no clubbing, cyanosis or edema and no calf tenderness General Extremity: Negative for clubbing or cyanosis Skin Wound Narrative: The dehiscent surgical wound on the left knee persists. It is smaller in size. Dimensions are documented elsewhere. There is no sign of infection or cellulitis. There is a moderate amount of bioburden. The dehiscent surgical wound now consists of 2 separate wounds, with an open area centrally in the vertical/longitudinal incision, and a skin bridge between the lower dehiscent portion at the inferior pole of the surgical wound. The dimensions of each site are to be documented, and as 2 separate wounds. In summary, however, there has been improvement, with epithelialization of the portion of the dehiscent surgical wound. Neuro oriented x3, CN's II-XII intact bilaterally and moves all extremities Sensorium / Orientation: awake, alert, oriented to person, oriented to place and oriented to time Psych Appearance: grossly normal and appropriate Attitude: calm Activity / Motor Behavior: appropriate eye contact Speech: normal speech Mood & Affect: euthymic mood Thought Process: normal thought process Thought Content: normal thought content Attention / Concentration: attention grossly intact Debridement Note Debridement Note Wound debrided: Dehiscent left anterior knee surgical wound Laterality: Left Type of Debridement: Excisional debridement Anesthesia Used: 5% Lidocaine Gel Depth: Down to and including healthy tissue and in the subcutaneous layer Percentage of wound debrided: 100 Instrument Used: 3mm curette Tissue Removed: Bioburden Severity: Fat Layer Exposed Amount of bleeding with debridement: Mild Bleeding Controlled with: Compression and gauze Patient tolerated procedure: Patient tolerated procedure well Post-Debridement Measurements and Additional Note: Post-Debridement Measurements/Treatment - Nurse 1 - General Ulcer Assessment Start: 12/06/21 09:03 Freq: Status: Active Protocol: ROGELIO Activity Type Activity Date Activity User E-Sign Co-Sign Detail Recorded Client Recorded Date Recorded By Document 12/06/21 09:03 AZEEM [id number] 12/06/21 09:08 DL 12/06/21 09:03 CARROLL - Today's Visit Information Type of service Follow-up Visit (Physician/LEAN ENGINEER ) Arrival Mode Ambulatory Transfer Assistance None Patient Identification Verified (Name & Yes ) Patient Requires Transmission-Based No Precautions Finger Stick Blood Sugar(mg/dl) (if 127 indicated): Blood Sugar Stated by Patient Height and Weight Body Mass Index (BMI) 21.2 BMI Classification Normal Vital Signs Temperature (97.8 F-99.1 F) 97.5 F L Temperature Source Temporal Pulse Rate (60-100) 101 H Pulse Location Monitor Respiratory Rate (12-18) 16 Respiratory rate source Observation Blood Pressure (90/60-120/80) 140/75 H Blood Pressure Mean 96 Source Monitor Pain Scale: 0-10 Numeric Is Patient Pain Free? Yes - Nurse 1 - General Ulcer Measurement Start: 12/06/21 09:03 Freq: Status: Active Protocol: Activity Type Activity Date Activity User E-Sign Co-Sign Detail Recorded Client Recorded Date Recorded By Document 12/06/21 09:03 DL [id number] 12/06/21 09:08 DL 12/06/21 09:03 Wound Center Nurse 1 #1 Left knee Proximal -Current Size (cm) - Length 6 -Current Size (cm) - Width 0.6 -Current Size (cm) - Depth 0.3 -Total Square Cm 3.6 -Photo Taken No -Exudate Amt Medium -Exudate Type Serosanguineous -Wound Margin Distinct, Outline Attached -Granulation Amt None Present (0 %) -Necrosis Amt Large (67-100%) -Necrotic Tissue Type Adherent Slough -Structure Exposed N/A -Texture (Isis-wound Skin Appearance) Localized Edema ,Scarring -Moisture (Isis-wound Skin Appearance) No Abnormality -Color (Isis-wound Skin Appearance) No Abnormality -Temperature (Isis-wound Skin No Abnormality Appearance) (Pt Warm) -Tenderness on Palpation (Isis-wound No Skin Appearance) -Ulcer Cleansing Rinsed/ Irrigated with Saline -Foul Odor after Cleansing No -Anesthetic Used 4% Lidocaine Solution WC - Nurse 2 - General Ulcer CM Notes Start: 12/06/21 09:03 Freq: Status: Active Protocol: Activity Type Activity Date Activity User E-Sign Co-Sign Detail Recorded Client Recorded Date Recorded By Document 12/06/21 09:37 PL [id number] 12/06/21 09:39 PL 12/06/21 09:37 Wound Center Nurse 2 #2 Left Knee Distal -Time 09:28 -Correct Patient Yes -Correct Side, Site, Position Yes -Correct Procedure Yes -Procedure Performed Yes -Type of Procedure Debridement -Clinical Debridement Subcutaneous -Tissue Removed Subcutaneous -Post Debridement (cm) - Length 1.0 -Post Debridement (cm) - Width 0.5 -Post Debridement (cm) - Depth 0.2 -Total Square (Post) (cm) 0.50 -Area of Debridement (cm) - Length 1.0 -Area of Debridement (cm) - Width 0.5 -Total Square (Area) (cm) 0.50 -Tunneling No -Undermining/Tunneling No -Circular Undermining No -Wound/Ulcer Outcome Not Healed -Ulcer Cleansing Rinsed/ Irrigated with Saline -Foul Odor after Cleansing No -Bioengineered Tissue No -Bleeding Controlled with Pressure -Treatment Response Procedure Tolerated Well -Debridement - Subq, 1st 20sq cm Yes #1 Left knee Proximal -Time 09:28 -Correct Patient Yes -Correct Side, Site, Position Yes -Correct Procedure Yes -Procedure Performed Yes -Type of Procedure Debridement -Clinical Debridement Subcutaneous -Tissue Removed Dermis -Post Debridement (cm) - Length 2.0 -Post Debridement (cm) - Width 0.5 -Post Debridement (cm) - Depth 0.2 -Total Square (Post) (cm) 1.00 -Area of Debridement (cm) - Length 2.0 -Area of Debridement (cm) - Width 0.5 -Total Square (Area) (cm) 1.00 -Tunneling No -Undermining/Tunneling No -Circular Undermining No -Wound/Ulcer Outcome Not Healed -Ulcer Cleansing Rinsed/ Irrigated with Saline -Foul Odor after Cleansing No -Bioengineered Tissue No -Bleeding Controlled with Pressure -Treatment Response Procedure Tolerated Well -Debridement - Subq, 1st 20sq cm No Pain Scale: 0-10 Numeric Is Patient Pain Free? Yes Assessment/Plan Assessment/Plan (1) Surgical wound dehiscence: CODE(S): T81.31XA - Disruption of external operation (surgical) wound, not elsewhere classified, initial encounter QUALIFIERS: Encounter type: initial encounter Qualified Code(s): T81.31XA - Disruption of external operation (surgical) wound, not elsewhere classified, initial encounter (2) Wound infection after surgery: CODE(S): T81.49XA - Infection following a procedure, other surgical site, initial encounter (3) Tobacco abuse counseling: CODE(S): Z71.6 - Tobacco abuse counseling (4) Tobacco abuse: CODE(S): Z72.0 - Tobacco use (5) Lumbar disc disease: CODE(S): M51.9 - Unspecified thoracic, thoracolumbar and lumbosacral intervertebral disc disorder (6) Scoliosis: CODE(S): M41.9 - Scoliosis, unspecified (7) Hypertension: CODE(S): I10 - Essential (primary) hypertension (8) History of myocardial infarction: CODE(S): I25.2 - Old myocardial infarction (9) Hyperlipidemia: CODE(S): E78.5 - Hyperlipidemia, unspecified (10) Diabetes mellitus: CODE(S): E11.9 - Type 2 diabetes mellitus without complications QUALIFIERS: Diabetes mellitus type: type 2 Diabetes mellitus mcc insulin use: without mcc use Laterality: left (11) Osteoarthritis (arthritis due to wear and tear of joints): CODE(S): M19.90 - Unspecified osteoarthritis, unspecified site PLAN: This is s a 65-year-old female with a dehiscent, infected surgical wound on the left anterior knee. She has completed her second course of oral amoxicillin. Swab cultures have been recently obtained, and cultures have been negative for aerobic and anaerobic bacterial growth. Routine laboratory studies have been obtained, with results as follows: Glucose 178, BUN 9, creatinine 0.83, total protein 7.1, albumin 3.8, calcium 9.7, AST 12, alkaline phosphatase 70, ALT 23, total bilirubin 0.30, sodium 140, potassium 4.0, chloride 109, serum prealbumin 28.3, hemoglobin A1c 6.9, white blood count 8.5, hemoglobin 12.8, hematocrit 37.7, platelets 338,000, sed rate 6. We are to continue the use of collagenase Santyl topically, which will be applied by the patient on a daily basis. She has been instructed in the appropriate means of application. A prescription has been provided. The patient has been advised to stop smoking. She has been advised to consume a healthy, well-balanced diet. Optimization of her glycemic control has been recommended. At this juncture, her dehiscent wound appears to be relatively superficial, and imaging studies are not felt to be warranted at this time. It is doubtful that there is a deep, underlying infection involving the patient's joint hardware. Patient is to return in 1 week for reassessment. Total time: 28 minutes
[2021-12-13 09:00] VITALS: BP 150/81; PULSE 92; TEMP 36.1; BMI 21.2
--- NOTE | 2021-12-13 09:27 | HP.PCM_ITS ---
History of Present Illness Date of Service: 12/13/21 Chief Complaint: Dehiscent, infected surgical wound, left knee History of Wound: This 65-year-old female who presented as a referral from her orthopedic surgeon relative to dehiscent, infected surgical wound on the left anterior knee. Patient initially underwent left total knee replacement surgery in 1987. She required replacement of her left knee hardware, the procedure which was performed on September 26, 2021. Her most recent revisional surgical procedure was performed by Dr. Reed Lopez. Approximately 2 weeks postop, the karyn were removed from her surgical incision, and her surgical incision busted open. She suffered a dehiscence, which subsequently became infected. The patient has undergone 2 courses of oral amoxicillin. She is currently on her second course. She relates some small amount of drainage from the inferior portion of the dehiscent incision. She denies constitutional symptoms of widespread infection, such as fever, sweats and chills, etc. She is currently ambulatory with the aid of crutches. Patient is a known diabetic. [facility] Medical History Anxiety Arthritis Back pain Cardiology follow-up encounter COPD (chronic obstructive pulmonary disease) Diabetes Diabetes mellitus Dietary restriction Fatty liver Gastric reflux High cholesterol History of ankle fracture History of echocardiogram History of edema History of heart attack History of myocardial infarction History of pain when walking History of stress test Hx of mitral valve prolapse Hyperlipidemia Hypertension Low iron Lumbar disc disease Osteoarthritis (arthritis due to wear and tear of joints) Restless legs Scoliosis Smoker Surgical wound dehiscence Tobacco abuse Tobacco abuse counseling Wears glasses Wound infection after surgery Home Medications Healthy Beets 1 cap PO/SL DAILY 09/12/21 [History Last Taken Unknown] albuterol sulfate [ProAir HFA] 1 inh INHALATION Q6H PRN 09/12/21 [History Last Taken Unknown] aspirin [Aspir-Low] 81 mg PO DAILY 09/12/21 [History Last Taken Unknown] cholecalciferol (vitamin D3) [Vitamin D3] 125 mcg PO DAILY 09/12/21 [History Last Taken Unknown] clopidogrel [Plavix] 75 mg PO DAILY 09/12/21 [History Last Taken Unknown] empagliflozin [Jardiance] 25 mg PO DAILY 09/12/21 [History Last Taken Unknown] ferrous sulfate [iron] 325 mg PO DAILY 09/12/21 [History Last Taken Unknown] fluticasone propion-salmeterol [Advair Diskus] 1 inh INHALATION BID 09/12/21 [History Last Taken Unknown] isosorbide mononitrate 60 mg PO DAILY 09/12/21 [History Last Taken Unknown] losartan 50 mg PO DAILY 09/12/21 [History Last Taken Unknown] metformin 1,000 mg PO BID 09/12/21 [History Last Taken Unknown] metoprolol tartrate 50 mg PO BID 09/12/21 [History Last Taken Unknown] pantoprazole 20 mg PO DAILY 09/12/21 [History Last Taken Unknown] pravastatin 20 mg PO QHS 09/12/21 [History Last Taken Unknown] ropinirole 0.5 mg PO QHS 09/12/21 [History Last Taken Unknown] tiotropium bromide [Spiriva Respimat] 2 puff INHALATION DAILY 09/12/21 [History Last Taken Unknown] acetaminophen 500 mg PO Q6H PRN 11/15/21 [History Last Taken Unknown] amoxicillin-pot clavulanate 1 tab PO BID 11/15/21 [History Last Taken Unknown] cyanocobalamin (vitamin B-12) [B-12 DOTS] 500 mcg PO DAILY 11/15/21 [History Last Taken Unknown] empagliflozin [Jardiance] 25 mg PO DAILY 11/15/21 [History Last Taken Unknown] fluticasone propion-salmeterol [Advair Diskus] 1 inh INHALATION BID 11/15/21 [History Last Taken Unknown] heart beet 500 mg DAILY 11/15/21 [History Last Taken Unknown] lactobacillus combination no.4 [Probiotic] 3,000 mmu cells PO DAILY 11/15/21 [History Last Taken Unknown] oxycodone 5 mg PO BID PRN 11/15/21 [History Last Taken Unknown] sertraline [Zoloft] 25 mg PO DAILY 11/15/21 [History Last Taken Unknown] tiotropium bromide [Spiriva Respimat] 2 puff INHALATION DAILY 11/15/21 [History Last Taken Unknown] Allergy/AdvReac Type Severity Reaction Status Date / Time cortisone Allergy Rash Verified 09/26/21 05:55 glyburide Allergy Swelling Verified 09/26/21 05:55 latex Allergy Rash Verified 09/26/21 05:55 Sulfa (Sulfonamide Allergy Rash Verified 09/26/21 05:55 Antibiotics) Surgical History History of ankle surgery History of bunionectomy History of cardiac catheterization Hx of breast surgery Hx of heart artery stent Hx of knee surgery Social History Smoking Status: Current every day smoker tobacco type: cigarettes Vital Signs Vital Signs Vital Signs: 12/13/21 09:00 Temperature 97.0 F L Temperature Source Temporal Pulse Rate 92 Blood Pressure 150/81 H Blood Pressure Mean 104 Blood Pressure Source Monitor Blood Pressure Position Sitting Blood Pressure Location Left Arm Weight Weight: 136 lb Body Mass Index (BMI) 21.2 Physical Exam Const alert, oriented x3, no apparent distress, average body habitus and well nourished General Appearance: cooperative, comfortable, well kempt and well developed Orientation / Consciousness: awake, oriented to person, oriented to place and oriented to time HEENT normocephalic and head/scalp atraumatic Head and Scalp: normal to inspection, normocephalic and atraumatic External Ear: external ears normal Eyes PERRL and EOMs intact bilaterally General Eye: normal appearance of both eyes Resp normal respiratory effort, normal air movement, no retractions and no use of accessory muscles Effort and Inspection: able to speak in complete sentences Extremity no calf tenderness General Extremity: Negative for clubbing or cyanosis Skin Wound Narrative: The dehiscent surgical wound on the patient's left anterior knee persists. It appears to be slightly smaller in size. Dimensions are documented elsewhere. There is no sign of infection or cellulitis. There is a moderate amount of bioburden. Neuro oriented x3, CN's II-XII intact bilaterally and moves all extremities Sensorium / Orientation: awake, alert, oriented to person, oriented to place and oriented to time Psych Appearance: grossly normal and appropriate Attitude: calm Activity / Motor Behavior: appropriate eye contact Speech: normal speech Mood & Affect: euthymic mood Thought Process: normal thought process Thought Content: normal thought content Attention / Concentration: attention grossly intact Debridement Note Debridement Note Wound debrided: Left anterior knee, surgical dehiscence Laterality: Left Type of Debridement: Excisional debridement Anesthesia Used: 5% Lidocaine Gel Depth: Down to and including healthy tissue and in the subcutaneous layer Percentage of wound debrided: 100 Instrument Used: 3mm curette Tissue Removed: Bioburden Severity: Fat Layer Exposed Amount of bleeding with debridement: Mild Bleeding Controlled with: Compression and gauze Patient tolerated procedure: Patient tolerated procedure well Post-Debridement Measurements and Additional Note: Post-Debridement Measurements/Treatment CARROLL - Nurse 1 - General Ulcer Assessment Start: 12/06/21 09:03 Freq: Status: Active Protocol: CARROLL.LOWALMAT Activity Type Activity Date Activity User E-Sign Co-Sign Detail Recorded Client Recorded Date Recorded By Document 12/06/21 09:03 DL [id number] 12/06/21 09:08 DL Document 12/13/21 09:00 KR [id number] 12/13/21 09:02 KR 12/06/21 12/13/21 09:03 09:00 CARROLL - Today's Visit Information Type of service Follow-up Visit Follow-up Visit (Physician/MACHINE PECAN GATHERER (Physician/MACHINE PECAN GATHERER ) ) Arrival Mode Ambulatory Ambulatory Transfer Assistance None Patient Identification Verified (Name & Yes Yes ) Patient Requires Transmission-Based No Precautions Finger Stick Blood Sugar(mg/dl) (if 127 indicated): Blood Sugar Stated by Patient Height and Weight Body Mass Index (BMI) 21.2 21.2 BMI Classification Normal Normal Vital Signs Temperature (97.8 F-99.1 F) 97.5 F L 97.0 F L Temperature Source Temporal Temporal Pulse Rate (60-100) 101 H 92 Pulse Location Monitor Monitor Respiratory Rate (12-18) 16 Respiratory rate source Observation Blood Pressure (90/60-120/80) 140/75 H 150/81 H Blood Pressure Mean 96 104 Source Monitor Monitor Position Sitting Blood Pressure Location Left Arm History Since Last Visit- (Skip if this is Patient's initial visit) Have you changed medications since your No last visit? Any new allergies or adverse reactions No Had a fall/change in ADL's that may No increase risk of falls Signs or symptoms of abuse and/or No neglect since last visit Have you been in the hospital since your No last visit? Has dressing in place as prescribed Yes Has compression in place as prescribed N/A Has offloadiing in place as prescribed N/A Experienced any changes in pain level or No management Left Footwear Regular Shoe Right Footwear Regular Shoe Pain Scale: 0-10 Numeric Is Patient Pain Free? Yes Yes CARROLL - Nurse 1 - General Ulcer Measurement Start: 12/06/21 09:03 Freq: Status: Active Protocol: Activity Type Activity Date Activity User E-Sign Co-Sign Detail Recorded Client Recorded Date Recorded By Document 12/06/21 09:03 DL [id number] 12/06/21 09:08 DL Document 12/13/21 09:00 KR [id number] 12/13/21 09:02 KR 12/06/21 12/13/21 09:03 09:00 Wound Center Nurse 1 #2 Left Knee Distal -Current Size (cm) - Length 0.8 -Current Size (cm) - Width 0.5 -Current Size (cm) - Depth 0.2 -Total Square Cm 0.40 -Exudate Amt Small -Exudate Type Serosanguineous -Wound Margin Distinct, Outline Attached -Granulation Amt None Present (0 %) -Necrosis Amt Large (67-100%) -Necrotic Tissue Type Adherent Slough -Texture (Isis-wound Skin Appearance) Assessed, Scarring -Moisture (Isis-wound Skin Appearance) Assessed,Dry/ Scaly -Color (Isis-wound Skin Appearance) No Abnormality, Assessed -Temperature (Isis-wound Skin No Abnormality Appearance) (Pt Warm) -Tenderness on Palpation (Isis-wound No Skin Appearance) -Ulcer Cleansing Rinsed/ Irrigated with Saline -Foul Odor after Cleansing No -Anesthetic Used 5% Lidocaine Gel #1 Left knee Proximal -Current Size (cm) - Length 6 0.7 -Current Size (cm) - Width 0.6 0.3 -Current Size (cm) - Depth 0.3 0.1 -Total Square Cm 3.6 0.21 -Photo Taken No -Exudate Amt Medium Small -Exudate Type Serosanguineous Serosanguineous -Wound Margin Distinct, Distinct, Outline Outline Attached Attached -Granulation Amt None Present (0 None Present (0 %) %) -Necrosis Amt Large (67-100%) Large (67-100%) -Necrotic Tissue Type Adherent Slough Adherent Slough -Structure Exposed N/A -Texture (Isis-wound Skin Appearance) Localized Edema Assessed, ,Scarring Scarring -Moisture (Isis-wound Skin Appearance) No Abnormality Assessed,Dry/ Scaly -Color (Isis-wound Skin Appearance) No Abnormality No Abnormality, Assessed -Temperature (Isis-wound Skin No Abnormality No Abnormality Appearance) (Pt Warm) (Pt Warm) -Tenderness on Palpation (Isis-wound No No Skin Appearance) -Ulcer Cleansing Rinsed/ Rinsed/ Irrigated with Irrigated with Saline Saline -Foul Odor after Cleansing No No -Anesthetic Used 4% Lidocaine 5% Lidocaine Solution Gel WC - Nurse 2 - General Ulcer CM Notes Start: 12/06/21 09:03 Freq: Status: Active Protocol: Activity Type Activity Date Activity User E-Sign Co-Sign Detail Recorded Client Recorded Date Recorded By Document 12/06/21 09:37 PL [id number] 12/06/21 09:39 PL Document 12/13/21 09:16 PL [id number] 12/13/21 09:18 PL 12/06/21 12/13/21 09:37 09:16 Wound Center Nurse 2 #2 Left Knee Distal -Time 09:10 -Correct Patient Yes Yes -Correct Side, Site, Position Yes Yes -Correct Procedure Yes Yes -Procedure Performed Yes Yes -Type of Procedure Debridement Debridement -Clinical Debridement Subcutaneous Subcutaneous -Tissue Removed Subcutaneous Subcutaneous -Post Debridement (cm) - Length 1.0 0.8 -Post Debridement (cm) - Width 0.5 0.5 -Post Debridement (cm) - Depth 0.2 0.2 -Total Square (Post) (cm) 0.50 0.40 -Area of Debridement (cm) - Length 1.0 0.8 -Area of Debridement (cm) - Width 0.5 0.5 -Total Square (Area) (cm) 0.50 0.40 -Tunneling No No -Undermining/Tunneling No No -Circular Undermining No No -Wound/Ulcer Outcome Not Healed Not Healed -Ulcer Cleansing Rinsed/ Rinsed/ Irrigated with Irrigated with Saline Saline -Foul Odor after Cleansing No No -Bioengineered Tissue No No -Bleeding Controlled with Pressure Pressure -Treatment Response Procedure Procedure Tolerated Well Tolerated Well -Debridement - Subq, 1st 20sq cm Yes No #1 Left knee Proximal -Time : 09:10 -Correct Patient Yes Yes -Correct Side, Site, Position Yes Yes -Correct Procedure Yes Yes -Procedure Performed Yes Yes -Type of Procedure Debridement Debridement -Clinical Debridement Subcutaneous Subcutaneous -Tissue Removed Dermis Subcutaneous -Post Debridement (cm) - Length 2.0 0.7 -Post Debridement (cm) - Width 0.5 0.3 -Post Debridement (cm) - Depth 0.2 0.1 -Total Square (Post) (cm) 1.00 0.21 -Area of Debridement (cm) - Length 2.0 0.7 -Area of Debridement (cm) - Width 0.5 0.3 -Total Square (Area) (cm) 1.00 0.21 -Tunneling No No -Undermining/Tunneling No No -Circular Undermining No No -Wound/Ulcer Outcome Not Healed Not Healed -Ulcer Cleansing Rinsed/ Rinsed/ Irrigated with Irrigated with Saline Saline -Foul Odor after Cleansing No No -Bioengineered Tissue No No -Bleeding Controlled with Pressure Pressure -Treatment Response Procedure Procedure Tolerated Well Tolerated Well -Debridement - Subq, 1st 20sq cm No Yes Pain Scale: 0-10 Numeric Is Patient Pain Free? Yes Yes - Nurse 3 - General Ulcer D/C NN Start: 12/06/21 09:03 Freq: Status: Active Protocol: Activity Type Activity Date Activity User E-Sign Co-Sign Detail Recorded Client Recorded Date Recorded By Document 12/13/21 09:23 YADI [id number] 12/13/21 09:23 YADI 12/13/21 09:23 Wound Care Nurse 3 #2 Left Knee Distal -Ulcer Cleansing Rinsed/ Irrigated with Saline -Primary Dressing Covered/Secured with Dry Gauze, Secured with Tape #1 Left knee Proximal -Ulcer Cleansing Rinsed/ Irrigated with Saline -Primary Dressing Covered/Secured with Dry Gauze, Secured with Tape Pain Scale: 0-10 Numeric Is Patient Pain Free? Yes - Visit Discharge Discharge Condition Stable Ambulatory Status Ambulatory Transportation Private Auto Assessment/Plan Assessment/Plan (1) Surgical wound dehiscence: CODE(S): T81.31XA - Disruption of external operation (surgical) wound, not elsewhere classified, initial encounter QUALIFIERS: Encounter type: initial encounter Qualified Code(s): T81.31XA - Disruption of external operation (surgical) wound, not elsewhere classified, initial encounter (2) Wound infection after surgery: CODE(S): T81.49XA - Infection following a procedure, other surgical site, initial encounter (3) Tobacco abuse counseling: CODE(S): Z71.6 - Tobacco abuse counseling (4) Tobacco abuse: CODE(S): Z72.0 - Tobacco use (5) Lumbar disc disease: CODE(S): M51.9 - Unspecified thoracic, thoracolumbar and lumbosacral intervertebral disc disorder (6) Scoliosis: CODE(S): M41.9 - Scoliosis, unspecified (7) Hypertension: CODE(S): I10 - Essential (primary) hypertension (8) History of myocardial infarction: CODE(S): I25.2 - Old myocardial infarction (9) Hyperlipidemia: CODE(S): E78.5 - Hyperlipidemia, unspecified (10) Diabetes mellitus: CODE(S): E11.9 - Type 2 diabetes mellitus without complications QUALIFIERS: Diabetes mellitus type: type 2 Diabetes mellitus regional intermodal truck driver insulin use: without regional intermodal truck driver use Laterality: left (11) Osteoarthritis (arthritis due to wear and tear of joints): CODE(S): M19.90 - Unspecified osteoarthritis, unspecified site PLAN: This is s a 65-year-old female with a dehiscent, infected surgical wound on the left anterior knee. She has completed her second course of oral am oxicillin. Swab cultures have been recently obtained, and cultures have been negative for aerobic and anaerobic bacterial growth. Routine laboratory studies have been obtained, with results as follows: Glucose 178, BUN 9, creatinine 0.83, total protein 7.1, albumin 3.8, calcium 9.7, AST 12, alkaline phosphatase 70, ALT 23, total bilirubin 0.30, sodium 140, potassium 4.0, chloride 109, serum prealbumin 28.3, hemoglobin A1c 6.9, white blood count 8.5, hemoglobin 12.8, hematocrit 37.7, platelets 338,000, sed rate 6. We are to continue the use of collagenase Santyl topically, which will be applied by the patient on a daily basis. She has been instructed in the appropriate means of application. A prescription has been provided. The patient has been advised to stop smoking. She has been advised to consume a healthy, well-balanced diet. Optimization of her glycemic control has been recommended. At this juncture, her dehiscent wound appears to be relatively superficial, and imaging studies are not felt to be warranted at this time to exclude deep infection. It is doubtful that there is a deep, underlying infection involving the patient's joint hardware. Patient is to return in 1 week for reassessment. Total time: 29 minutes
[2021-12-20 08:56] VITALS: BP 150/75; PULSE 87; TEMP 35.7; BMI 21.2
--- NOTE | 2021-12-20 09:39 | PCM.WC.HP ---
History of Present Illness Date of Service: 12/20/21 Chief Complaint: Dehiscent, infected surgical wound, left knee History of Wound: This 65-year-old female who presented as a referral from her orthopedic surgeon relative to dehiscent, infected surgical wound on the left anterior knee. Patient initially underwent left total knee replacement surgery in 1987. She required replacement of her left knee hardware, the procedure which was performed on September 26, 2021. Her most recent revisional surgical procedure was performed by Dr. Reed Lopez. Approximately 2 weeks postop, the karyn were removed from her surgical incision, and her surgical incision busted open. She suffered a dehiscence, which subsequently became infected. The patient has undergone 2 courses of oral amoxicillin. She is currently on her second course. She relates some small amount of drainage from the inferior portion of the dehiscent incision. She denies constitutional symptoms of widespread infection, such as fever, sweats and chills, etc. She is currently ambulatory with the aid of crutches. Patient is a known diabetic. [facility] Medical History Anxiety Arthritis Back pain Cardiology follow-up encounter COPD (chronic obstructive pulmonary disease) Diabetes Diabetes mellitus Dietary restriction Fatty liver Gastric reflux High cholesterol History of ankle fracture History of echocardiogram History of edema History of heart attack History of myocardial infarction History of pain when walking History of stress test Hx of mitral valve prolapse Hyperlipidemia Hypertension Low iron Lumbar disc disease Osteoarthritis (arthritis due to wear and tear of joints) Restless legs Scoliosis Smoker Surgical wound dehiscence Tobacco abuse Tobacco abuse counseling Wears glasses Wound infection after surgery Home Medications Healthy Beets 1 cap PO/SL DAILY 09/12/21 [History Last Taken Unknown] albuterol sulfate [ProAir HFA] 1 inh INHALATION Q6H PRN 09/12/21 [History Last Taken Unknown] aspirin [Aspir-Low] 81 mg PO DAILY 09/12/21 [History Last Taken Unknown] cholecalciferol (vitamin D3) [Vitamin D3] 125 mcg PO DAILY 09/12/21 [History Last Taken Unknown] clopidogrel [Plavix] 75 mg PO DAILY 09/12/21 [History Last Taken Unknown] empagliflozin [Jardiance] 25 mg PO DAILY 09/12/21 [History Last Taken Unknown] ferrous sulfate [iron] 325 mg PO DAILY 09/12/21 [History Last Taken Unknown] fluticasone propion-salmeterol [Advair Diskus] 1 inh INHALATION BID 09/12/21 [History Last Taken Unknown] isosorbide mononitrate 60 mg PO DAILY 09/12/21 [History Last Taken Unknown] losartan 50 mg PO DAILY 09/12/21 [History Last Taken Unknown] metformin 1,000 mg PO BID 09/12/21 [History Last Taken Unknown] metoprolol tartrate 50 mg PO BID 09/12/21 [History Last Taken Unknown] pantoprazole 20 mg PO DAILY 09/12/21 [History Last Taken Unknown] pravastatin 20 mg PO QHS 09/12/21 [History Last Taken Unknown] ropinirole 0.5 mg PO QHS 09/12/21 [History Last Taken Unknown] tiotropium bromide [Spiriva Respimat] 2 puff INHALATION DAILY 09/12/21 [History Last Taken Unknown] acetaminophen 500 mg PO Q6H PRN 11/15/21 [History Last Taken Unknown] amoxicillin-pot clavulanate 1 tab PO BID 11/15/21 [History Last Taken Unknown] cyanocobalamin (vitamin B-12) [B-12 DOTS] 500 mcg PO DAILY 11/15/21 [History Last Taken Unknown] empagliflozin [Jardiance] 25 mg PO DAILY 11/15/21 [History Last Taken Unknown] fluticasone propion-salmeterol [Advair Diskus] 1 inh INHALATION BID 11/15/21 [History Last Taken Unknown] heart beet 500 mg DAILY 11/15/21 [History Last Taken Unknown] lactobacillus combination no.4 [Probiotic] 3,000 mmu cells PO DAILY 11/15/21 [History Last Taken Unknown] oxycodone 5 mg PO BID PRN 11/15/21 [History Last Taken Unknown] sertraline [Zoloft] 25 mg PO DAILY 11/15/21 [History Last Taken Unknown] tiotropium bromide [Spiriva Respimat] 2 puff INHALATION DAILY 11/15/21 [History Last Taken Unknown] Allergy/AdvReac Type Severity Reaction Status Date / Time cortisone Allergy Rash Verified 09/26/21 05:55 glyburide Allergy Swelling Verified 09/26/21 05:55 latex Allergy Rash Verified 09/26/21 05:55 Sulfa (Sulfonamide Allergy Rash Verified 09/26/21 05:55 Antibiotics) Surgical History History of ankle surgery History of bunionectomy History of cardiac catheterization Hx of breast surgery Hx of heart artery stent Hx of knee surgery Social History Smoking Status: Current every day smoker tobacco type: cigarettes Vital Signs Vital Signs Vital Signs: 12/20/21 08:56 Temperature 96.3 F L Temperature Source Temporal Pulse Rate 87 Blood Pressure 150/75 H Blood Pressure Mean 100 Blood Pressure Source Monitor Blood Pressure Position Sitting Blood Pressure Location Left Arm Weight Weight: 136 lb Body Mass Index (BMI) 21.2 Physical Exam Const alert, oriented x3, no apparent distress and well nourished General Appearance: cooperative and well developed Orientation / Consciousness: awake, oriented to person, oriented to place and oriented to time HEENT normocephalic and head/scalp atraumatic Head and Scalp: normal to inspection, normocephalic and atraumatic External Ear: external ears normal Eyes PERRL and EOMs intact bilaterally General Eye: normal appearance of both eyes Resp normal respiratory effort, normal air movement, no retractions and no use of accessory muscles Effort and Inspection: able to speak in complete sentences Extremity no clubbing, cyanosis or edema and no calf tenderness General Extremity: Negative for clubbing or cyanosis Skin Wound Narrative: No swelling or edema are noted in the patient's left lower extremity. The dehiscent surgical wound on the left anterior knee persists. However, it is improved. There have been areas of epithelialization. Dimensions are documented elsewhere. There is no sign of infection or cellulitis. There is a moderate amount of bioburden. There is 1 very small area located centrally which remains to be epithelialized. The only other area yet to heal is at the inferior pole, which demonstrates a small amount of undermining. Neuro oriented x3 and CN's II-XII intact bilaterally Sensorium / Orientation: awake, alert, oriented to person, oriented to place and oriented to time Psych Appearance: grossly normal and appropriate Attitude: calm Activity / Motor Behavior: appropriate eye contact Speech: normal speech Mood & Affect: euthymic mood Thought Process: normal thought process Thought Content: normal thought content Attention / Concentration: attention grossly intact Debridement Note Debridement Note Wound debrided: Dehiscent surgical wound, left anterior knee Laterality: Left Type of Debridement: Excisional debridement Anesthesia Used: 5% Lidocaine Gel Depth: Down to and including healthy tissue and in the subcutaneous layer Percentage of wound debrided: 100 Instrument Used: 3mm curette Tissue Removed: Bioburden Amount of bleeding with debridement: Mild Bleeding Controlled with: Compression and gauze Patient tolerated procedure: Patient tolerated procedure well Post-Debridement Measurements and Additional Note: Post-Debridement Measurements/Treatment - Nurse 1 - General Ulcer Assessment Start: 12/06/21 09:03 Freq: Status: Active Protocol: ROGELIO Activity Type Activity Date Activity User E-Sign Co-Sign Detail Recorded Client Recorded Date Recorded By Document 12/06/21 09:03 DL [id number] 12/06/21 09:08 DL Document 12/13/21 09:00 KR [id number] 12/13/21 09:02 KR Document 12/20/21 08:56 DL [id number] 12/20/21 09:03 DL 12/06/21 12/13/21 12/20/21 09:03 09:00 08:56 - Today's Visit Information Type of service Follow-up Visit Follow-up Visit Follow-up Visit (Physician/[employer]UCK AND TRANSPORT MECHANIC (Physician/TRUCK AND TRANSPORT MECHANIC (Physician/TRUCK AND TRANSPORT MECHANIC ) ) ) Arrival Mode Ambulatory Ambulatory Ambulatory Transfer Assistance None Patient Identification Verified (Name & Yes Yes Yes ) Patient Requires Transmission-Based No Precautions Finger Stick Blood Sugar(mg/dl) (if 127 indicated): Blood Sugar Stated by Patient Height and Weight Body Mass Index (BMI) 21.2 21.2 21.2 BMI Classification Normal Normal Normal Vital Signs Temperature (97.8 F-99.1 F) 97.5 F L 97.0 F L 96.3 F L Temperature Source Temporal Temporal Temporal Pulse Rate (60-100) 101 H 92 87 Pulse Location Monitor Monitor Monitor Respiratory Rate (12-18) 16 Respiratory rate source Observation Blood Pressure (90/60-120/80) 140/75 H 150/81 H 150/75 H Blood Pressure Mean 96 104 100 Source Monitor Monitor Monitor Position Sitting Sitting Blood Pressure Location Left Arm Left Arm History Since Last Visit- (Skip if this is Patient's initial visit) Have you changed medications since your No No last visit? Any new allergies or adverse reactions No No Had a fall/change in ADL's that may No No increase risk of falls Signs or symptoms of abuse and/or No No neglect since last visit Have you been in the hospital since your No No last visit? Has dressing in place as prescribed Yes Yes Has compression in place as prescribed N/A N/A Has offloadiing in place as prescribed N/A N/A Experienced any changes in pain level or No No management Left Footwear Regular Shoe Regular Shoe Right Footwear Regular Shoe Regular Shoe Pain Scale: 0-10 Numeric Is Patient Pain Free? Yes Yes Yes WC - Nurse 1 - General Ulcer Measurement Start: 12/06/21 09:03 Freq: Status: Active Protocol: Activity Type Activity Date Activity User E-Sign Co-Sign Detail Recorded Client Recorded Date Recorded By Document 12/06/21 09:03 DL [id number] 12/06/21 09:08 DL Document 12/13/21 09:00 KR [id number] 12/13/21 09:02 KR Document 12/20/21 08:56 DL [id number] 12/20/21 09:03 DL 12/06/21 12/13/21 12/20/21 09:03 09:00 08:56 Wound Center Nurse 1 #2 Left Knee Distal -Current Size (cm) - Length 0.8 0.3 -Current Size (cm) - Width 0.5 0.2 -Current Size (cm) - Depth 0.2 0.1 -Total Square Cm 0.40 0.06 -Exudate Amt Small Small -Exudate Type Serosanguineous Serosanguineous -Wound Margin Distinct, Distinct, Outline Outline Attached Attached -Granulation Amt None Present (0 Small (1-33%) %) -Granulation Quality [place] -Necrosis Amt Large (67-100%) Small (1-33%) -Necrotic Tissue Type Adherent Slough Adherent Slough -Texture (Isis-wound Skin Appearance) Assessed, Assessed, Scarring Scarring -Moisture (Isis-wound Skin Appearance) Assessed,Dry/ No Abnormality, Scaly Assessed -Color (Isis-wound Skin Appearance) No Abnormality, No Abnormality, Assessed Assessed -Temperature (Isis-wound Skin No Abnormality No Abnormality Appearance) (Pt Warm) (Pt Warm) -Tenderness on Palpation (Isis-wound No No Skin Appearance) -Ulcer Cleansing Rinsed/ Rinsed/ Irrigated with Irrigated with Saline Saline -Foul Odor after Cleansing No No -Anesthetic Used 5% Lidocaine 5% Lidocaine Gel Gel #1 Left knee Proximal -Current Size (cm) - Length 6 0.7 0.2 -Current Size (cm) - Width 0.6 0.3 0.2 -Current Size (cm) - Depth 0.3 0.1 0.1 -Total Square Cm 3.6 0.21 0.04 -Photo Taken No -Exudate Amt Medium Small Small -Exudate Type Serosanguineous Serosanguineous Serosanguineous -Wound Margin Distinct, Distinct, Distinct, Outline Outline Outline Attached Attached Attached -Granulation Amt None Present (0 None Present (0 Small (1-33%) %) %) -Granulation Quality [place] -Necrosis Amt Large (67-100%) Large (67-100%) Small (1-33%) -Necrotic Tissue Type Adherent Slough Adherent Slough Adherent Slough -Structure Exposed N/A -Texture (Isis-wound Skin Appearance) Localized Edema Assessed, Assessed, ,Scarring Scarring Scarring -Moisture (Isis-wound Skin Appearance) No Abnormality Assessed,Dry/ No Abnormality, Scaly Assessed -Color (Isis-wound Skin Appearance) No Abnormality No Abnormality, No Abnormality, Assessed Assessed -Temperature (Isis-wound Skin No Abnormality No Abnormality No Abnormality Appearance) (Pt Warm) (Pt Warm) (Pt Warm) -Tenderness on Palpation (Isis-wound No No No Skin Appearance) -Ulcer Cleansing Rinsed/ Rinsed/ Rinsed/ Irrigated with Irrigated with Irrigated with Saline Saline Saline -Foul Odor after Cleansing No No No -Anesthetic Used 4% Lidocaine 5% Lidocaine 5% Lidocaine Solution Gel Gel WC - Nurse 2 - General Ulcer CM Notes Start: 12/06/21 09:03 Freq: Status: Active Protocol: Activity Type Activity Date Activity User E-Sign Co-Sign Detail Recorded Client Recorded Date Recorded By Document 12/06/21 09:37 PL [id number] 12/06/21 09:39 PL Document 12/13/21 09:16 PL [id number] 12/13/21 09:18 PL Document 12/20/21 09:31 PL Desktop 12/20/21 09:33 PL 12/06/21 12/13/21 12/20/21 09:37 09:16 09:31 Wound Center Nurse 2 #2 Left Knee Distal -Time 09:10 09:22 -Correct Patient Yes Yes Yes -Correct Side, Site, Position Yes Yes Yes -Correct Procedure Yes Yes Yes -Procedure Performed Yes Yes Yes -Type of Procedure Debridement Debridement Debridement -Clinical Debridement Subcutaneous Subcutaneous Subcutaneous -Tissue Removed Subcutaneous Subcutaneous Subcutaneous -Post Debridement (cm) - Length 1.0 0.8 0.3 -Post Debridement (cm) - Width 0.5 0.5 0.2 -Post Debridement (cm) - Depth 0.2 0.2 0.1 -Total Square (Post) (cm) 0.50 0.40 0.06 -Area of Debridement (cm) - Length 1.0 0.8 0.3 -Area of Debridement (cm) - Width 0.5 0.5 0.2 -Total Square (Area) (cm) 0.50 0.40 0.06 -Tunneling No No No -Undermining/Tunneling No No Yes -Undermining/Tunneling Starts (O'clock 5 ) -Undermining/Tunneling Ends (O'clock) 7 -Maximum Distance (cm) 0.2 -Circular Undermining No No No -Wound/Ulcer Outcome Not Healed Not Healed Not Healed -Ulcer Cleansing Rinsed/ Rinsed/ Rinsed/ Irrigated with Irrigated with Irrigated with Saline Saline Saline -Foul Odor after Cleansing No No No -Bioengineered Tissue No No No -Bleeding Controlled with Pressure Pressure Pressure -Treatment Response Procedure Procedure Procedure Tolerated Well Tolerated Well Tolerated Well -Debridement - Subq, 1st 20sq cm Yes No Yes #1 Left knee Proximal -Time 09:10 09:22 -Correct Patient Yes Yes Yes -Correct Side, Site, Position Yes Yes Yes -Correct Procedure Yes Yes Yes -Procedure Performed Yes Yes Yes -Type of Procedure Debridement Debridement Debridement -Clinical Debridement Subcutaneous Subcutaneous Subcutaneous -Tissue Removed Dermis Subcutaneous Subcutaneous -Post Debridement (cm) - Length 2.0 0.7 0.2 -Post Debridement (cm) - Width 0.5 0.3 0.2 -Post Debridement (cm) - Depth 0.2 0.1 0.1 -Total Square (Post) (cm) 1.00 0.21 0.04 -Area of Debridement (cm) - Length 2.0 0.7 0.2 -Area of Debridement (cm) - Width 0.5 0.3 0.2 -Total Square (Area) (cm) 1.00 0.21 0.04 -Tunneling No No No -Undermining/Tunneling No No No -Circular Undermining No No No -Wound/Ulcer Outcome Not Healed Not Healed Not Healed -Ulcer Cleansing Rinsed/ Rinsed/ Rinsed/ Irrigated with Irrigated with Irrigated with Saline Saline Saline -Foul Odor after Cleansing No No No -Bioengineered Tissue No No No -Bleeding Controlled with Pressure Pressure Pressure -Treatment Response Procedure Procedure Procedure Tolerated Well Tolerated Well Tolerated Well -Debridement - Subq, 1st 20sq cm No Yes No Pain Scale: 0-10 Numeric Is Patient Pain Free? Yes Yes Yes - Nurse 3 - General Ulcer D/C NN Start: 12/06/21 09:03 Freq: Status: Active Protocol: Activity Type Activity Date Activity User E-Sign Co-Sign Detail Recorded Client Recorded Date Recorded By Document 12/13/21 09:23 YADI [id number] 12/13/21 09:23 KR Document 12/20/21 09:32 KR [id number] 12/20/21 09:33 KR 12/13/21 12/20/21 09:23 09:32 Wound Care Nurse 3 #2 Left Knee Distal -Ulcer Cleansing Rinsed/ Rinsed/ Irrigated with Irrigated with Saline Saline -Primary Dressing Applied Nugauze, Iodoform -Primary Dressing Covered/Secured with Dry Gauze, Dry Gauze, Secured with Secured with Tape Tape -Nugauze, Iodoform 1/4 1 #1 Left knee Proximal -Ulcer Cleansing Rinsed/ Rinsed/ Irrigated with Irrigated with Saline Saline -Primary Dressing Applied C Hydrogel ($) -Primary Dressing Covered/Secured with Dry Gauze, Dry Gauze, Secured with Secured with Tape Tape Left -Compression Wrap Carlos Wrap Pain Scale: 0-10 Numeric Is Patient Pain Free? Yes Yes - Visit Discharge Discharge Condition Stable Stable Ambulatory Status Ambulatory Ambulatory Transportation Private Auto Private Auto Assessment/Plan Assessment/Plan (1) Surgical wound dehiscence: CODE(S): T81.31XA - Disruption of external operation (surgical) wound, not elsewhere classified, initial encounter QUALIFIERS: Encounter type: initial encounter Qualified Code(s): T81.31XA - Disruption of external operation (surgical) wound, not elsewhere classified, initial encounter (2) Wound infection after surgery: CODE(S): T81.49XA - Infection following a procedure, other surgical site, initial encounter (3) Tobacco abuse counseling: CODE(S): Z71.6 - Tobacco abuse counseling (4) Tobacco abuse: CODE(S): Z72.0 - Tobacco use (5) Lumbar disc disease: CODE(S): M51.9 - Unspecified thoracic, thoracolumbar and lumbosacral intervertebral disc disorder (6) Scoliosis: CODE(S): M41.9 - Scoliosis, unspecified (7) Hypertension: CODE(S): I10 - Essential (primary) hypertension (8) History of myocardial infarction: CODE(S): I25.2 - Old myocardial infarction (9) Hyperlipidemia: CODE(S): E78.5 - Hyperlipidemia, unspecified (10) Diabetes mellitus: CODE(S): E11.9 - Type 2 diabetes mellitus without complications QUALIFIERS: Diabetes mellitus type: type 2 Diabetes mellitus refrigerator glazier insulin use: without longterm use Laterality: left (11) Osteoarthritis (arthritis due to wear and tear of joints): CODE(S): M19.90 - Unspecified osteoarthritis, unspecified site PLAN: This is s a 65-year-old female with a dehiscent, infected surgical wound on the left anterior knee. She has completed her second course of oral amoxicillin. Swab cultures have been recently obtained, and cultures have been negative for aerobic and anaerobic bacterial growth. Routine laboratory studies have been obtained, with results as follows: Glucose 178, BUN 9, creatinine 0.83, total protein 7.1, albumin 3.8, calcium 9.7, AST 12, alkaline phosphatase 70, ALT 23, total bilirubin 0.30, sodium 140, potassium 4.0, chloride 109, serum prealbumin 28.3, hemoglobin A1c 6.9, white blood count 8.5, hemoglobin 12.8, hematocrit 37.7, platelets 338,000, sed rate 6. We are to continue the use of collagenase Santyl topically at the unhealed portion of the wound located in the midportion of the surgical incision. The most inferior portion of the surgical incision reveals mild undermining. As result, we are to transition in this area to the use of 1/4 inch Nu Gauze, which will be moistened, and applied topically on a daily basis. The patient has been instructed in the appropriate means of application. The patient has been advised to stop smoking. She has been advised to consume a healthy, well-balanced diet. Optimization of her glycemic control has been recommended. At this juncture, her dehiscent wound appears to be relatively superficial, and imaging studies are not felt to be warranted at this time to exclude deep infection. It is doubtful that there is a deep, underlying infection involving the patient's joint hardware. Patient is to return in 1 week for reassessment. Total time: 28 minutes
[2021-12-27 08:55] VITALS: BP 140/81; PULSE 86; RESP 18; TEMP 36; BMI 21.2
--- NOTE | 2021-12-27 09:16 | PCM.WC.HP ---
History of Present Illness Date of Service: 12/27/21 Chief Complaint: Dehiscent, infected surgical wound, left knee History of Wound: This 65-year-old female who presented as a referral from her orthopedic surgeon relative to dehiscent, infected surgical wound on the left anterior knee. Patient initially underwent left total knee replacement surgery in 1987. She required replacement of her left knee hardware, the procedure which was performed on September 26, 2021. Her most recent revisional surgical procedure was performed by Dr. Rede Lopez. Approximately 2 weeks postop, the karyn were removed from her surgical incision, and her surgical incision busted open. She suffered a dehiscence, which subsequently became infected. The patient has undergone 2 courses of oral amoxicillin. She is currently on her second course. She relates some small amount of drainage from the inferior portion of the dehiscent incision. She denies constitutional symptoms of widespread infection, such as fever, sweats and chills, etc. She is currently ambulatory with the aid of crutches. Patient is a known diabetic. [facility] Medical History Anxiety Arthritis Back pain Cardiology follow-up encounter COPD (chronic obstructive pulmonary disease) Diabetes Diabetes mellitus Dietary restriction Fatty liver Gastric reflux High cholesterol History of ankle fracture History of echocardiogram History of edema History of heart attack History of myocardial infarction History of pain when walking History of stress test Hx of mitral valve prolapse Hyperlipidemia Hypertension Low iron Lumbar disc disease Osteoarthritis (arthritis due to wear and tear of joints) Restless legs Scoliosis Smoker Surgical wound dehiscence Tobacco abuse Tobacco abuse counseling Wears glasses Wound infection after surgery Home Medications Healthy Beets 1 cap PO/SL DAILY 09/12/21 [History Last Taken Unknown] albuterol sulfate [ProAir HFA] 1 inh INHALATION Q6H PRN 09/12/21 [History Last Taken Unknown] aspirin [Aspir-Low] 81 mg PO DAILY 09/12/21 [History Last Taken Unknown] cholecalciferol (vitamin D3) [Vitamin D3] 125 mcg PO DAILY 09/12/21 [History Last Taken Unknown] clopidogrel [Plavix] 75 mg PO DAILY 09/12/21 [History Last Taken Unknown] empagliflozin [Jardiance] 25 mg PO DAILY 09/12/21 [History Last Taken Unknown] ferrous sulfate [iron] 325 mg PO DAILY 09/12/21 [History Last Taken Unknown] fluticasone propion-salmeterol [Advair Diskus] 1 inh INHALATION BID 09/12/21 [History Last Taken Unknown] isosorbide mononitrate 60 mg PO DAILY 09/12/21 [History Last Taken Unknown] losartan 50 mg PO DAILY 09/12/21 [History Last Taken Unknown] metformin 1,000 mg PO BID 09/12/21 [History Last Taken Unknown] metoprolol tartrate 50 mg PO BID 09/12/21 [History Last Taken Unknown] pantoprazole 20 mg PO DAILY 09/12/21 [History Last Taken Unknown] pravastatin 20 mg PO QHS 09/12/21 [History Last Taken Unknown] ropinirole 0.5 mg PO QHS 09/12/21 [History Last Taken Unknown] tiotropium bromide [Spiriva Respimat] 2 puff INHALATION DAILY 09/12/21 [History Last Taken Unknown] acetaminophen 500 mg PO Q6H PRN 11/15/21 [History Last Taken Unknown] amoxicillin-pot clavulanate 1 tab PO BID 11/15/21 [History Last Taken Unknown] cyanocobalamin (vitamin B-12) [B-12 DOTS] 500 mcg PO DAILY 11/15/21 [History Last Taken Unknown] empagliflozin [Jardiance] 25 mg PO DAILY 11/15/21 [History Last Taken Unknown] fluticasone propion-salmeterol [Advair Diskus] 1 inh INHALATION BID 11/15/21 [History Last Taken Unknown] heart beet 500 mg DAILY 11/15/21 [History Last Taken Unknown] lactobacillus combination no.4 [Probiotic] 3,000 mmu cells PO DAILY 11/15/21 [History Last Taken Unknown] oxycodone 5 mg PO BID PRN 11/15/21 [History Last Taken Unknown] sertraline [Zoloft] 25 mg PO DAILY 11/15/21 [History Last Taken Unknown] tiotropium bromide [Spiriva Respimat] 2 puff INHALATION DAILY 11/15/21 [History Last Taken Unknown] Allergy/AdvReac Type Severity Reaction Status Date / Time cortisone Allergy Rash Verified 09/26/21 05:55 glyburide Allergy Swelling Verified 09/26/21 05:55 latex Allergy Rash Verified 09/26/21 05:55 Sulfa (Sulfonamide Allergy Rash Verified 09/26/21 05:55 Antibiotics) Surgical History History of ankle surgery History of bunionectomy History of cardiac catheterization Hx of breast surgery Hx of heart artery stent Hx of knee surgery Social History Smoking Status: Current every day smoker tobacco type: cigarettes Vital Signs Vital Signs Vital Signs: 12/27/21 08:55 Temperature 96.8 F L Temperature Source Temporal Pulse Rate 86 Respiratory Rate 18 Blood Pressure 140/81 H Blood Pressure Mean 100 Blood Pressure Source Monitor Weight Weight: 136 lb Body Mass Index (BMI) 21.2 Physical Exam Const alert, oriented x3, no apparent distress, average body habitus and well nourished General Appearance: cooperative, comfortable, well kempt and well developed Orientation / Consciousness: awake, oriented to person, oriented to place and oriented to time HEENT normocephalic, head/scalp atraumatic and hearing grossly normal bilaterally Head and Scalp: normal to inspection, normocephalic and atraumatic External Ear: external ears normal Eyes PERRL and EOMs intact bilaterally General Eye: normal appearance of both eyes Resp normal respiratory effort, normal air movement, no retractions and no use of accessory muscles Effort and Inspection: able to speak in complete sentences Extremity no calf tenderness General Extremity: Negative for clubbing or cyanosis Skin Wound Narrative: No significant swelling or edema are noted in the patient's left lower extremity. The surgical wound dehiscence on the left anterior knee persists, though continues to heal. The central portion of the longitudinal surgical incision is now nearly healed, and only very superficial. An open defect persists inferiorly, which is a circular open wound approximately 1 cm in diameter, with mild undermining. There is a mild amount of bioburden. There is no sign of infection or cellulitis. Dimensions are documented elsewhere. Neuro oriented x3, CN's II-XII intact bilaterally and moves all extremities Sensorium / Orientation: awake, alert, oriented to person, oriented to place, oriented to time and orientation impaired Psych Appearance: grossly normal and appropriate Attitude: calm Activity / Motor Behavior: appropriate eye contact Speech: normal speech Mood & Affect: euthymic mood Thought Process: normal thought process Thought Content: normal thought content Attention / Concentration: attention grossly intact Debridement Note Debridement Note Wound debrided: Left anterior knee surgical dehiscence Laterality: Left Type of Debridement: Excisional debridement Anesthesia Used: 5% Lidocaine Gel Depth: Down to and including healthy tissue and in the subcutaneous layer Percentage of wound debrided: 100 Instrument Used: 3mm curette Tissue Removed: Bioburden Severity: Fat Layer Exposed Amount of bleeding with debridement: Mild Bleeding Controlled with: Compression and gauze Patient tolerated procedure: Patient tolerated procedure well Post-Debridement Measurements and Additional Note: Post-Debridement Measurements/Treatment - Nurse 1 - General Ulcer Assessment Start: 12/06/21 09:03 Freq: Status: Active Protocol: Red SeraphimLISBETH Activity Type Activity Date Activity User E-Sign Co-Sign Detail Recorded Client Recorded Date Recorded By Document 12/06/21 09:03 DL [id number] 12/06/21 09:08 DL Document 12/13/21 09:00 KR [id number] 12/13/21 09:02 KR Document 12/20/21 08:56 DL [id number] 12/20/21 09:03 DL Document 12/27/21 08:55 DL [id number] 12/27/21 09:02 DL 12/06/21 12/13/21 12/20/21 09:03 09:00 08:56 - Today's Visit Information Type of service Follow-up Visit Follow-up Visit Follow-up Visit (Physician/MECHANICAL EQUIPMENT TEST ENGINEER (Physician/MECHANICAL EQUIPMENT TEST ENGINEER (Physician/MECHANICAL EQUIPMENT TEST ENGINEER ) ) ) Arrival Mode Ambulatory Ambulatory Ambulatory Transfer Assistance None Patient Identification Verified (Name & Yes Yes Yes ) Patient Requires Transmission-Based No Precautions Finger Stick Blood Sugar(mg/dl) (if 127 indicated): Blood Sugar Stated by Patient Height and Weight Body Mass Index (BMI) 21.2 21.2 21.2 BMI Classification Normal Normal Normal Vital Signs Temperature (97.8 F-99.1 F) 97.5 F L 97.0 F L 96.3 F L Temperature Source Temporal Temporal Temporal Pulse Rate (60-100) 101 H 92 87 Pulse Location Monitor Monitor Monitor Respiratory Rate (12-18) 16 Respiratory rate source Observation Blood Pressure (90/60-120/80) 140/75 H 150/81 H 150/75 H Blood Pressure Mean 96 104 100 Source Monitor Monitor Monitor Position Sitting Sitting Blood Pressure Location Left Arm Left Arm History Since Last Visit- (Skip if this is Patient's initial visit) Have you changed medications since your No No last visit? Any new allergies or adverse reactions No No Had a fall/change in ADL's that may No No increase risk of falls Signs or symptoms of abuse and/or No No neglect since last visit Have you been in the hospital since your No No last visit? Has dressing in place as prescribed Yes Yes Has compression in place as prescribed N/A N/A Has offloadiing in place as prescribed N/A N/A Experienced any changes in pain level or No No management Left Footwear Regular Shoe Regular Shoe Right Footwear Regular Shoe Regular Shoe Pain Scale: 0-10 Numeric Is Patient Pain Free? Yes Yes Yes 12/27/21 08:55 WC - Today's Visit Information Type of service Follow-up Visit (Physician/MECHANICAL EQUIPMENT TEST ENGINEER ) Arrival Mode Ambulatory Transfer Assistance Transfer Board Patient Identification Verified (Name & Yes ) Patient Requires Transmission-Based Precautions Finger Stick Blood Sugar(mg/dl) (if 128 indicated): Blood Sugar Stated by Patient Height and Weight Body Mass Index (BMI) 21.2 BMI Classification Normal Vital Signs Temperature (97.8 F-99.1 F) 96.8 F L Temperature Source Temporal Pulse Rate (60-100) 86 Pulse Location Monitor Respiratory Rate (12-18) 18 Respiratory rate source Observation Blood Pressure (90/60-120/80) 140/81 H Blood Pressure Mean 100 Source Monitor Position Blood Pressure Location History Since Last Visit- (Skip if this is Patient's initial visit) Have you changed medications since your No last visit? Any new allergies or adverse reactions No Had a fall/change in ADL's that may No increase risk of falls Signs or symptoms of abuse and/or No neglect since last visit Have you been in the hospital since your No last visit? Has dressing in place as prescribed Yes Has compression in place as prescribed Yes Has offloadiing in place as prescribed N/A Experienced any changes in pain level or No management Left Footwear Right Footwear Pain Scale: 0-10 Numeric Is Patient Pain Free? Yes - Nurse 1 - General Ulcer Measurement Start: 12/06/21 09:03 Freq: Status: Active Protocol: Activity Type Activity Date Activity User E-Sign Co-Sign Detail Recorded Client Recorded Date Recorded By Document 12/06/21 09:03 DL [id number] 12/06/21 09:08 DL Document 12/13/21 09:00 KR [id number] 12/13/21 09:02 KR Document 12/20/21 08:56 DL [id number] 12/20/21 09:03 DL Document 12/27/21 08:55 DL [id number] 12/27/21 09:02 DL 12/06/21 12/13/21 12/20/21 09:03 09:00 08:56 Wound Center Nurse 1 #2 Left Knee Distal -Current Size (cm) - Length 0.8 0.3 -Current Size (cm) - Width 0.5 0.2 -Current Size (cm) - Depth 0.2 0.1 -Total Square Cm 0.40 0.06 -Photo Taken -Exudate Amt Small Small -Exudate Type Serosanguineous Serosanguineous -Wound Margin Distinct, Distinct, Outline Outline Attached Attached -Granulation Amt None Present (0 Small (1-33%) %) -Granulation Quality [place] -Necrosis Amt Large (67-100%) Small (1-33%) -Necrotic Tissue Type Adherent Slough Adherent Slough -Structure Exposed -Texture (Isis-wound Skin Appearance) Assessed, Assessed, Scarring Scarring -Moisture (Isis-wound Skin Appearance) Assessed,Dry/ No Abnormality, Scaly Assessed -Color (Isis-wound Skin Appearance) No Abnormality, No Abnormality, Assessed Assessed -Temperature (Isis-wound Skin No Abnormality No Abnormality Appearance) (Pt Warm) (Pt Warm) -Tenderness on Palpation (Isis-wound No No Skin Appearance) -Ulcer Cleansing Rinsed/ Rinsed/ Irrigated with Irrigated with Saline Saline -Foul Odor after Cleansing No No -Anesthetic Used 5% Lidocaine 5% Lidocaine Gel Gel #1 Left knee Proximal -Current Size (cm) - Length 6 0.7 0.2 -Current Size (cm) - Width 0.6 0.3 0.2 -Current Size (cm) - Depth 0.3 0.1 0.1 -Total Square Cm 3.6 0.21 0.04 -Photo Taken No -Exudate Amt Medium Small Small -Exudate Type Serosanguineous Serosanguineous Serosanguineous -Wound Margin Distinct, Distinct, Distinct, Outline Outline Outline Attached Attached Attached -Granulation Amt None Present (0 None Present (0 Small (1-33%) %) %) -Granulation Quality [place] -Necrosis Amt Large (67-100%) Large (67-100%) Small (1-33%) -Necrotic Tissue Type Adherent Slough Adherent Slough Adherent Slough -Structure Exposed N/A -Texture (Isis-wound Skin Appearance) Localized Edema Assessed, Assessed, ,Scarring Scarring Scarring -Moisture (Isis-wound Skin Appearance) No Abnormality Assessed,Dry/ No Abnormality, Scaly Assessed -Color (Isis-wound Skin Appearance) No Abnormality No Abnormality, No Abnormality, Assessed Assessed -Temperature (Isis-wound Skin No Abnormality No Abnormality No Abnormality Appearance) (Pt Warm) (Pt Warm) (Pt Warm) -Tenderness on Palpation (Isis-wound No No No Skin Appearance) -Ulcer Cleansing Rinsed/ Rinsed/ Rinsed/ Irrigated with Irrigated with Irrigated with Saline Saline Saline -Foul Odor after Cleansing No No No -Anesthetic Used 4% Lidocaine 5% Lidocaine 5% Lidocaine Solution Gel Gel 12/27/21 08:55 Wound Center Nurse 1 #2 Left Knee Distal -Current Size (cm) - Length 0.6 -Current Size (cm) - Width 0.6 -Current Size (cm) - Depth 0.6 -Total Square Cm 0.36 -Photo Taken No -Exudate Amt Small -Exudate Type Serosanguineous -Wound Margin Distinct, Outline Attached -Granulation Amt None Present (0 %) -Granulation Quality -Necrosis Amt Large (67-100%) -Necrotic Tissue Type Adherent Slough -Structure Exposed N/A -Texture (Isis-wound Skin Appearance) Scarring -Moisture (Isis-wound Skin Appearance) No Abnormality -Color (Isis-wound Skin Appearance) No Abnormality -Temperature (Isis-wound Skin No Abnormality Appearance) (Pt Warm) -Tenderness on Palpation (Isis-wound No Skin Appearance) -Ulcer Cleansing Rinsed/ Irrigated with Saline -Foul Odor after Cleansing No -Anesthetic Used 5% Lidocaine Gel #1 Left knee Proximal -Current Size (cm) - Length 0.1 -Current Size (cm) - Width 0.1 -Current Size (cm) - Depth 0.1 -Total Square Cm 0.01 -Photo Taken No -Exudate Amt None Present -Exudate Type -Wound Margin Flat & Intact -Granulation Amt Small (1-33%) -Granulation Quality [place] -Necrosis Amt Small (1-33%) -Necrotic Tissue Type Adherent Slough -Structure Exposed N/A -Texture (Isis-wound Skin Appearance) Scarring -Moisture (Isis-wound Skin Appearance) No Abnormality -Color (Isis-wound Skin Appearance) No Abnormality -Temperature (Isis-wound Skin No Abnormality Appearance) (Pt Warm) -Tenderness on Palpation (Isis-wound No Skin Appearance) -Ulcer Cleansing Rinsed/ Irrigated with Saline -Foul Odor after Cleansing No -Anesthetic Used 5% Lidocaine Gel WC - Nurse 2 - General Ulcer CM Notes Start: 12/06/21 09:03 Freq: Status: Active Protocol: Activity Type Activity Date Activity User E-Sign Co-Sign Detail Recorded Client Recorded Date Recorded By Document 12/06/21 09:37 PL [id number] 12/06/21 09:39 PL Document 12/13/21 09:16 PL [id number] 12/13/21 09:18 PL Document 12/20/21 09:31 PL Desktop 12/20/21 09:33 PL 12/06/21 12/13/21 12/20/21 09:37 09:16 09:31 Wound Center Nurse 2 #2 Left Knee Distal -Time 09:28 09:10 09:22 -Correct Patient Yes Yes Yes -Correct Side, Site, Position Yes Yes Yes -Correct Procedure Yes Yes Yes -Procedure Performed Yes Yes Yes -Type of Procedure Debridement Debridement Debridement -Clinical Debridement Subcutaneous Subcutaneous Subcutaneous -Tissue Removed Subcutaneous Subcutaneous Subcutaneous -Post Debridement (cm) - Length 1.0 0.8 0.3 -Post Debridement (cm) - Width 0.5 0.5 0.2 -Post Debridement (cm) - Depth 0.2 0.2 0.1 -Total Square (Post) (cm) 0.50 0.40 0.06 -Area of Debridement (cm) - Length 1.0 0.8 0.3 -Area of Debridement (cm) - Width 0.5 0.5 0.2 -Total Square (Area) (cm) 0.50 0.40 0.06 -Tunneling No No No -Undermining/Tunneling No No Yes -Undermining/Tunneling Starts (O'clock 5 ) -Undermining/Tunneling Ends (O'clock) 7 -Maximum Distance (cm) 0.2 -Circular Undermining No No No -Wound/Ulcer Outcome Not Healed Not Healed Not Healed -Ulcer Cleansing Rinsed/ Rinsed/ Rinsed/ Irrigated with Irrigated with Irrigated with Saline Saline Saline -Foul Odor after Cleansing No No No -Bioengineered Tissue No No No -Bleeding Controlled with Pressure Pressure Pressure -Treatment Response Procedure Procedure Procedure Tolerated Well Tolerated Well Tolerated Well -Debridement - Subq, 1st 20sq cm Yes No Yes #1 Left knee Proximal -Time 09:28 09:10 09:22 -Correct Patient Yes Yes Yes -Correct Side, Site, Position Yes Yes Yes -Correct Procedure Yes Yes Yes -Procedure Performed Yes Yes Yes -Type of Procedure Debridement Debridement Debridement -Clinical Debridement Subcutaneous Subcutaneous Subcutaneous -Tissue Removed Dermis Subcutaneous Subcutaneous -Post Debridement (cm) - Length 2.0 0.7 0.2 -Post Debridement (cm) - Width 0.5 0.3 0.2 -Post Debridement (cm) - Depth 0.2 0.1 0.1 -Total Square (Post) (cm) 1.00 0.21 0.04 -Area of Debridement (cm) - Length 2.0 0.7 0.2 -Area of Debridement (cm) - Width 0.5 0.3 0.2 -Total Square (Area) (cm) 1.00 0.21 0.04 -Tunneling No No No -Undermining/Tunneling No No No -Circular Undermining No No No -Wound/Ulcer Outcome Not Healed Not Healed Not Healed -Ulcer Cleansing Rinsed/ Rinsed/ Rinsed/ Irrigated with Irrigated with Irrigated with Saline Saline Saline -Foul Odor after Cleansing No No No -Bioengineered Tissue No No No -Bleeding Controlled with Pressure Pressure Pressure -Treatment Response Procedure Procedure Procedure Tolerated Well Tolerated Well Tolerated Well -Debridement - Subq, 1st 20sq cm No Yes No Pain Scale: 0-10 Numeric Is Patient Pain Free? Yes Yes Yes WC - Nurse 3 - General Ulcer D/C NN Start: 12/06/21 09:03 Freq: Status: Active Protocol: Activity Type Activity Date Activity User E-Sign Co-Sign Detail Recorded Client Recorded Date Recorded By Document 12/13/21 09:23 KR [id number] 12/13/21 09:23 KR Document 12/20/21 09:32 KR [id number] 12/20/21 09:33 KR 12/13/21 12/20/21 09:23 09:32 Wound Care Nurse 3 #2 Left Knee Distal -Ulcer Cleansing Rinsed/ Rinsed/ Irrigated with Irrigated with Saline Saline -Primary Dressing Applied Nugauze, Iodoform -Primary Dressing Covered/Secured with Dry Gauze, Dry Gauze, Secured with Secured with Tape Tape -Nugauze, Iodoform 1/4 1 #1 Left knee Proximal -Ulcer Cleansing Rinsed/ Rinsed/ Irrigated with Irrigated with Saline Saline -Primary Dressing Applied C Hydrogel ($) -Primary Dressing Covered/Secured with Dry Gauze, Dry Gauze, Secured with Secured with Tape Tape Left -Compression Wrap Carlos Wrap Pain Scale: 0-10 Numeric Is Patient Pain Free? Yes Yes WC - Visit Discharge Discharge Condition Stable Stable Ambulatory Status Ambulatory Ambulatory Transportation Private Auto Private Auto Assessment/Plan Assessment/Plan (1) Surgical wound dehiscence: CODE(S): T81.31XA - Disruption of external operation (surgical) wound, not elsewhere classified, initial encounter QUALIFIERS: Encounter type: initial encounter Qualified Code(s): T81.31XA - Disruption of external operation (surgical) wound, not elsewhere classified, initial encounter (2) Wound infection after surgery: CODE(S): T81.49XA - Infection following a procedure, other surgical site, initial encounter (3) Tobacco abuse counseling: CODE(S): Z71.6 - Tobacco abuse counseling (4) Tobacco abuse: CODE(S): Z72.0 - Tobacco use (5) Lumbar disc disease: CODE(S): M51.9 - Unspecified thoracic, thoracolumbar and lumbosacral intervertebral disc disorder (6) Scoliosis: CODE(S): M41.9 - Scoliosis, unspecified (7) Hypertension: CODE(S): I10 - Essential (primary) hypertension (8) History of myocardial infarction: CODE(S): I25.2 - Old myocardial infarction (9) Hyperlipidemia: CODE(S): E78.5 - Hyperlipidemia, unspecified (10) Diabetes mellitus: CODE(S): E11.9 - Type 2 diabetes mellitus without complications QUALIFIERS: Diabetes mellitus type: type 2 Diabetes mellitus intermediate insulin use: without electronic security technician use Laterality: left (11) Osteoarthritis (arthritis due to wear and tear of joints): CODE(S): M19.90 - Unspecified osteoarthritis, unspecified site PLAN: This is s a 65-year-old female with a dehiscent, infected surgical wound on the left anterior knee. She has completed her second course of oral amoxicillin. Swab cultures have been recently obtained, and cultures have been negative for aerobic and anaerobic bacterial growth. Routine laboratory studies have been obtained, with results as follows: Glucose 178, BUN 9, creatinine 0.83, total protein 7.1, albumin 3.8, calcium 9.7, AST 12, alkaline phosphatase 70, ALT 23, total bilirubin 0.30, sodium 140, potassium 4.0, chloride 109, serum prealbumin 28.3, hemoglobin A1c 6.9, white blood count 8.5, hemoglobin 12.8, hematocrit 37.7, platelets 338,000, sed rate 6. We are to continue the use of collagenase Santyl topically at the unhealed portion of the wound located in the midportion of the surgical incision. The most inferior portion of the surgical incision reveals mild undermining. As result, we are to transition in this area to the use of 1/4 inch Nu Gauze, which will be moistened, and applied topically on a daily basis. The patient has been instructed in the appropriate means of application. The patient has been advised to stop smoking. She has been advised to consume a healthy, well-balanced diet. Optimization of her glycemic control has been recommended. At this juncture, her dehiscent wound appears to be relatively superficial, and imaging studies are not felt to be warranted at this time to exclude deep infection. It is doubtful that there is a deep, underlying infection involving the patient's joint hardware. Patient is to return in 1 week for reassessment. Total time: 29 minutes
--- NOTE | 2021-12-28 12:13 | WC ---
Patient contacted the wound center to report what she considered an increase in drainage. The drainage was described as water like and yellow in color, patient denied any odor, pain or redness at the site. Patient was advised by this nurse that if she had concerns for infection that she should go to the ER for a culture, otherwise it woul dbe addressed at her next appointment on 01/03/22. Patient verbally acknowledged the instructions.
== END 2021-12-31 23:59 | disposition home or self-care (01) ==
LOC: WC 14:30
PROVIDERS: PCP Family Medicine; Visit Provider Surgery
DX: T81.31XA Disruption of external operation (surgical) wound, not elsewhere classified, initial encounter (principal); J44.9 Chronic obstructive pulmonary disease, unspecified; E11.9 Type 2 diabetes mellitus without complications; M41.9 Scoliosis, unspecified; M19.90 Unspecified osteoarthritis, unspecified site; I10 Essential (primary) hypertension; F17.210 Nicotine dependence, cigarettes, uncomplicated; E78.5 Hyperlipidemia, unspecified; T81.49XA Infection following a procedure, other surgical site, initial encounter; Z71.6 Tobacco abuse counseling; E78.00 Pure hypercholesterolemia, unspecified
CPT/HCPCS: 11042; 87070; 87075; 87077; 87186; 87205; 99212; G0463

== ENCOUNTER 2022-01-10 08:30 | Outpatient (RCR) | payer BC, SELFPAY ==
[2022-01-01 00:38] VITALS: BP 140/81; PULSE 86; RESP 18; TEMP 36; BMI 21.2
--- NOTE | 2022-01-02 13:44 | WC ---
Prescription for Doxycycline 100mg PO BID x 7 Days 0 Refills and Keflex 500mg PO TID x 7 days 0 Refills was called into [facility] in [place]. Patient was notified and advised to take medication with food to avoid gastric distress.
[2022-01-03 08:29] VITALS: BP 164/78; PULSE 99; RESP 18; TEMP 36.5; BMI 21.2
--- NOTE | 2022-01-03 12:45 | PCM.WC.HP ---
History of Present Illness Date of Service: 01/03/22 Chief Complaint: Dehiscent, infected surgical wound, left knee History of Wound: This 66-year-old female who presented as a referral from her orthopedic surgeon relative to dehiscent, infected surgical wound on the left anterior knee. Patient initially underwent left total knee replacement surgery in 1987. She required replacement of her left knee hardware, the procedure which was performed on September 26, 2021. Her most recent revisional surgical procedure was performed by Dr. Reed Lopez. Approximately 2 weeks postop, the karyn were removed from her surgical incision, and her surgical incision busted open. She suffered a dehiscence, which subsequently became infected. The patient has undergone 2 courses of oral amoxicillin. She is currently on her second course. She relates some small amount of drainage from the inferior portion of the dehiscent incision. She denies constitutional symptoms of widespread infection, such as fever, sweats and chills, etc. She is currently ambulatory with the aid of crutches. Patient is a known diabetic. [facility] Medical History Anxiety Arthritis Back pain Cardiology follow-up encounter COPD (chronic obstructive pulmonary disease) Diabetes Diabetes mellitus Dietary restriction Fatty liver Gastric reflux High cholesterol History of ankle fracture History of echocardiogram History of edema History of heart attack History of myocardial infarction History of pain when walking History of stress test Hx of mitral valve prolapse Hyperlipidemia Hypertension Low iron Lumbar disc disease Osteoarthritis (arthritis due to wear and tear of joints) Restless legs Scoliosis Smoker Surgical wound dehiscence Tobacco abuse Tobacco abuse counseling Wears glasses Wound infection after surgery Home Medications Healthy Beets 1 cap PO/SL DAILY 09/12/21 [History Last Taken Unknown] albuterol sulfate [ProAir HFA] 1 inh INHALATION Q6H PRN 09/12/21 [History Last Taken Unknown] aspirin [Aspir-Low] 81 mg PO DAILY 09/12/21 [History Last Taken Unknown] cholecalciferol (vitamin D3) [Vitamin D3] 125 mcg PO DAILY 09/12/21 [History Last Taken Unknown] clopidogrel [Plavix] 75 mg PO DAILY 09/12/21 [History Last Taken Unknown] empagliflozin [Jardiance] 25 mg PO DAILY 09/12/21 [History Last Taken Unknown] ferrous sulfate [iron] 325 mg PO DAILY 09/12/21 [History Last Taken Unknown] fluticasone propion-salmeterol [Advair Diskus] 1 inh INHALATION BID 09/12/21 [History Last Taken Unknown] isosorbide mononitrate 60 mg PO DAILY 09/12/21 [History Last Taken Unknown] losartan 50 mg PO DAILY 09/12/21 [History Last Taken Unknown] metformin 1,000 mg PO BID 09/12/21 [History Last Taken Unknown] metoprolol tartrate 50 mg PO BID 09/12/21 [History Last Taken Unknown] pantoprazole 20 mg PO DAILY 09/12/21 [History Last Taken Unknown] pravastatin 20 mg PO QHS 09/12/21 [History Last Taken Unknown] ropinirole 0.5 mg PO QHS 09/12/21 [History Last Taken Unknown] tiotropium bromide [Spiriva Respimat] 2 puff INHALATION DAILY 09/12/21 [History Last Taken Unknown] acetaminophen 500 mg PO Q6H PRN 11/15/21 [History Last Taken Unknown] amoxicillin-pot clavulanate 1 tab PO BID 11/15/21 [History Last Taken Unknown] cyanocobalamin (vitamin B-12) [B-12 DOTS] 500 mcg PO DAILY 11/15/21 [History Last Taken Unknown] empagliflozin [Jardiance] 25 mg PO DAILY 11/15/21 [History Last Taken Unknown] fluticasone propion-salmeterol [Advair Diskus] 1 inh INHALATION BID 11/15/21 [History Last Taken Unknown] heart beet 500 mg DAILY 11/15/21 [History Last Taken Unknown] lactobacillus combination no.4 [Probiotic] 3,000 mmu cells PO DAILY 11/15/21 [History Last Taken Unknown] oxycodone 5 mg PO BID PRN 11/15/21 [History Last Taken Unknown] sertraline [Zoloft] 25 mg PO DAILY 11/15/21 [History Last Taken Unknown] tiotropium bromide [Spiriva Respimat] 2 puff INHALATION DAILY 11/15/21 [History Last Taken Unknown] Allergy/AdvReac Type Severity Reaction Status Date / Time cortisone Allergy Rash Verified 09/26/21 05:55 glyburide Allergy Swelling Verified 09/26/21 05:55 latex Allergy Rash Verified 09/26/21 05:55 Sulfa (Sulfonamide Allergy Rash Verified 09/26/21 05:55 Antibiotics) Surgical History History of ankle surgery History of bunionectomy History of cardiac catheterization Hx of breast surgery Hx of heart artery stent Hx of knee surgery Social History Smoking Status: Current every day smoker tobacco type: cigarettes Vital Signs Vital Signs Vital Signs: 01/03/22 08:29 Temperature 97.7 F L Temperature Source Temporal Pulse Rate 99 Respiratory Rate 18 Blood Pressure 164/78 H Blood Pressure Mean 106 Blood Pressure Source Monitor Weight Weight: 136 lb Body Mass Index (BMI) 21.2 Physical Exam Const alert, oriented x3, no apparent distress, average body habitus and well nourished General Appearance: cooperative, comfortable, well kempt and well developed Orientation / Consciousness: awake, oriented to person, oriented to place and oriented to time HEENT normocephalic and head/scalp atraumatic Head and Scalp: normal to inspection, normocephalic and atraumatic External Ear: external ears normal Eyes PERRL and EOMs intact bilaterally General Eye: normal appearance of both eyes Resp normal respiratory effort, normal air movement, no retractions and no use of accessory muscles Effort and Inspection: able to speak in complete sentences Extremity no calf tenderness General Extremity: Negative for clubbing or cyanosis Skin Wound Narrative: The patient's left anterior knee surgical incision is largely healed, but for an area at the inferior pole of the incision. There is an opening of several millimeters, with tunneling at the 1 o'clock position about 4-1/2 cm. From this site, there is noted to be serous drainage. According the patient, there has been a large volume of serous drainage over the last week. There is no sign of marisol infection. There is no significant erythema or cellulitis. The left knee joint appears to be swollen. Neuro oriented x3, CN's II-XII intact bilaterally, moves all extremities and no focal motor deficits Sensorium / Orientation: awake, alert, oriented to person, oriented to place and oriented to time Psych Appearance: grossly normal and appropriate Attitude: calm Activity / Motor Behavior: appropriate eye contact Speech: normal speech Mood & Affect: euthymic mood Thought Process: normal thought process Thought Content: normal thought content Attention / Concentration: attention grossly intact Debridement Note Debridement Note No debridement was completed: No debridement was completed today Post-Debridement Measurements and Additional Note: Post-Debridement Measurements/Treatment - Nurse 1 - General Ulcer Assessment Start: 01/03/22 08:28 Freq: Status: Active Protocol: ROGELIO Activity Type Activity Date Activity User E-Sign Co-Sign Detail Recorded Client Recorded Date Recorded By Document 01/03/22 08:29 DL [id number] 01/03/22 08:37 DL 01/03/22 08:29 - Today's Visit Information Type of service Follow-up Visit (Physician/[employer] ) Arrival Mode Ambulatory Transfer Assistance None Patient Identification Verified (Name & Yes ) Patient Requires Transmission-Based No Precautions Height and Weight Body Mass Index (BMI) 21.2 BMI Classification Normal Vital Signs Temperature (97.8 F-99.1 F) 97.7 F L Temperature Source Temporal Pulse Rate (60-100) 99 Pulse Location Monitor Respiratory Rate (12-18) 18 Respiratory rate source Observation Blood Pressure (90/60-120/80) 164/78 H Blood Pressure Mean 106 Source Monitor History Since Last Visit- (Skip if this is Patient's initial visit) Have you changed medications since your No last visit? Any new allergies or adverse reactions No Had a fall/change in ADL's that may No increase risk of falls Signs or symptoms of abuse and/or No neglect since last visit Have you been in the hospital since your No last visit? Has dressing in place as prescribed Yes Has compression in place as prescribed N/A Has offloadiing in place as prescribed Yes Experienced any changes in pain level or No management Pain Scale: 0-10 Numeric Is Patient Pain Free? Yes - Nurse 1 - General Ulcer Measurement Start: 01/03/22 08:28 Freq: Status: Active Protocol: Activity Type Activity Date Activity User E-Sign Co-Sign Detail Recorded Client Recorded Date Recorded By Document 01/03/22 08:29 DL [id number] 01/03/22 08:37 DL 01/03/22 08:29 Wound Center Nurse 1 #2 Left Knee Distal -Current Size (cm) - Length 0 -Current Size (cm) - Width 0 -Current Size (cm) - Depth 0 -Total Square Cm 0 -Photo Taken Yes -Tunneling No -Exudate Amt None Present -Wound Margin Flat & Intact -Granulation Amt Large (67-100%) -Granulation Quality [place] -Structure Exposed N/A -Texture (Isis-wound Skin Appearance) Scarring -Moisture (Isis-wound Skin Appearance) No Abnormality -Color (Isis-wound Skin Appearance) No Abnormality -Temperature (Isis-wound Skin No Abnormality Appearance) (Pt Warm) -Tenderness on Palpation (Isis-wound No Skin Appearance) -Ulcer Cleansing Soap and Water -Foul Odor after Cleansing Yes, Due to Product Use #1 Left knee Proximal -Current Size (cm) - Length 0.5 -Current Size (cm) - Width 0.5 -Current Size (cm) - Depth 2 -Total Square Cm 0.25 -Photo Taken Yes -Exudate Amt Large -Exudate Type Serosanguineous -Wound Margin Distinct, Outline Attached -Granulation Quality [place] -Necrosis Amt Small (1-33%) -Structure Exposed Tendon,N/A -Texture (Isis-wound Skin Appearance) Localized Edema ,Scarring -Moisture (Isis-wound Skin Appearance) No Abnormality -Color (Isis-wound Skin Appearance) No Abnormality -Temperature (Isis-wound Skin No Abnormality Appearance) (Pt Warm) -Ulcer Cleansing Soap and Water -Foul Odor after Cleansing No -Anesthetic Used 4% Lidocaine Solution WC - Nurse 3 - General Ulcer D/C NN Start: 01/03/22 08:28 Freq: Status: Active Protocol: Activity Type Activity Date Activity User E-Sign Co-Sign Detail Recorded Client Recorded Date Recorded By Document 01/03/22 09:32 YADI [id number] 01/03/22 09:33 YADI 01/03/22 09:32 Wound Care Nurse 3 #2 Left Knee Distal -Primary Dressing Applied Aquacel Rope, Optilok 6.5x10 -Aquacel Rope 1 -Optilok 6.5x10 1 Pain Scale: 0-10 Numeric Is Patient Pain Free? Yes WC - Visit Discharge Discharge Condition Stable Ambulatory Status Ambulatory Transportation Private Auto Assessment/Plan Assessment/Plan (1) Surgical wound dehiscence: CODE(S): T81.31XA - Disruption of external operation (surgical) wound, not elsewhere classified, initial encounter QUALIFIERS: Encounter type: initial encounter Qualified Code(s): T81.31XA - Disruption of external operation (surgical) wound, not elsewhere classified, initial encounter (2) Wound infection after surgery: CODE(S): T81.49XA - Infection following a procedure, other surgical site, initial encounter (3) Osteoarthritis (arthritis due to wear and tear of joints): CODE(S): M19.90 - Unspecified osteoarthritis, unspecified site (4) Tobacco abuse counseling: CODE(S): Z71.6 - Tobacco abuse counseling (5) Tobacco abuse: CODE(S): Z72.0 - Tobacco use (6) Lumbar disc disease: CODE(S): M51.9 - Unspecified thoracic, thoracolumbar and lumbosacral intervertebral disc disorder (7) Scoliosis: CODE(S): M41.9 - Scoliosis, unspecified (8) Hypertension: CODE(S): I10 - Essential (primary) hypertension (9) History of myocardial infarction: CODE(S): I25.2 - Old myocardial infarction (10) Hyperlipidemia: CODE(S): E78.5 - Hyperlipidemia, unspecified (11) Diabetes mellitus: CODE(S): E11.9 - Type 2 diabetes mellitus without complications QUALIFIERS: Diabetes mellitus type: type 2 Diabetes mellitus mcfp insulin use: without mcfp use Laterality: left PLAN: This is s a 66-year-old female with a dehiscent, infected surgical wound on the left anterior knee. She has completed her second course of oral amoxicillin. Swab cultures have been recently obtained on December 29, 2021, the results of which demonstrate the presence of Streptococcus parasanguinis and a coag negative staph species. As result, the patient has been started on doxycycline 100 mg p.o. twice daily for 7 days, and Keflex 500 mg p.o. 3 times daily for 7 days. The preponderance of the patient's surgical wound dehiscence has healed in satisfactory fashion. However, the most inferior portion of her dehiscent wound has failed to respond to recent therapy, and a significant increase in drainage has been noted within the last week. The drainage is largely serous in appearance. Gentle probing in [facility] today reveals tunneling at the 1 o'clock position of approximately 4-1/2 cm. This finding arouses concern as to whether there could be a fistulous connection between the external environment and the joint space of the knee. I have spoken by telephone today with Dr. Reed Lopez, the patient's Orthopedic surgeon, who intends to evaluate the patient yet today. It is possible that Dr. Lopez, his associates, and his team of health care specialist will be required to address this issue. We will await the recommendations from the Orthopedic service. Routine laboratory studies have been recently obtained, with results as follows: Glucose 178, BUN 9, creatinine 0.83, total protein 7.1, albumin 3.8, calcium 9.7, AST 12, alkaline phosphatase 70, ALT 23, total bilirubin 0.30, sodium 140, potassium 4.0, chloride 109, serum prealbumin 28.3, hemoglobin A1c 6.9, white blood count 8.5, hemoglobin 12.8, hematocrit 37.7, platelets 338,000, sed rate 6. We are to continue the use of 1/4 inch Nu Gauze, which will be moistened and applied to the tunneled wound on a daily basis. The patient has been instructed in the appropriate means of application. The patient has been advised to stop smoking. She has been advised to consume a healthy, well-balanced diet. Optimization of her glycemic control has been recommended. We will await to hear the plans recommended for the patient by the Orthopedic service. Total time: 28 minutes
[2022-01-10 08:37] VITALS: BP 165/80; PULSE 89; TEMP 35.2; BMI 21.2
--- NOTE | 2022-01-10 09:14 | HP.PCM_ITS ---
History of Present Illness Date of Service: 01/10/22 Chief Complaint: Dehiscent, infected surgical wound, left knee History of Wound: This 66-year-old female who presented as a referral from her orthopedic surgeon relative to a dehiscent, infected surgical wound on the left anterior knee. Patient initially underwent left total knee replacement surgery in 1987. She required replacement of her left knee hardware, the procedure which was performed on September 26, 2021. Her most recent revisional surgical procedure was performed by Dr. Reed Lopez. Approximately 2 weeks postop, the karyn were removed from her surgical incision, and her surgical incision busted open. She suffered a dehiscence, which subsequently became infected. The patient has undergone 2 courses of oral amoxicillin. She is currently on her second course. She relates some small amount of drainage from the inferior portion of the dehiscent incision. She denies constitutional symptoms of widespread infection, such as fever, sweats and chills, etc. She is currently ambulatory with the aid of crutches. Patient is a known diabetic. [facility] Medical History (Updated 01/10/22 @ 09:[address] Arvin Parra MD) Anxiety Arthritis Back pain Cardiology follow-up encounter COPD (chronic obstructive pulmonary disease) Diabetes Diabetes mellitus Dietary restriction Fatty liver Gastric reflux High cholesterol History of ankle fracture History of echocardiogram History of edema History of heart attack History of myocardial infarction History of pain when walking History of stress test Hx of mitral valve prolapse Hyperlipidemia Hypertension Low iron Lumbar disc disease Osteoarthritis (arthritis due to wear and tear of joints) Prosthetic joint infection Restless legs Scoliosis Smoker Surgical wound dehiscence Tobacco abuse Tobacco abuse counseling Wears glasses Wound infection after surgery Home Medications Healthy Beets 1 cap PO/SL DAILY 09/12/21 [History Last Taken Unknown] albuterol sulfate [ProAir HFA] 1 inh INHALATION Q6H PRN 09/12/21 [History Last Taken Unknown] aspirin [Aspir-Low] 81 mg PO DAILY 09/12/21 [History Last Taken Unknown] cholecalciferol (vitamin D3) [Vitamin D3] 125 mcg PO DAILY 09/12/21 [History Last Taken Unknown] clopidogrel [Plavix] 75 mg PO DAILY 09/12/21 [History Last Taken Unknown] ferrous sulfate [iron] 325 mg PO QODAY 09/12/21 [History Last Taken Unknown] fluticasone propion-salmeterol [Advair Diskus] 1 inh INHALATION BID 09/12/21 [History Last Taken Unknown] isosorbide mononitrate 60 mg PO DAILY 09/12/21 [History Last Taken Unknown] losartan 50 mg PO DAILY 09/12/21 [History Last Taken Unknown] metformin 1,000 mg PO BID 09/12/21 [History Last Taken Unknown] metoprolol tartrate 50 mg PO BID 09/12/21 [History Last Taken Unknown] pantoprazole 20 mg PO DAILY 09/12/21 [History Last Taken Unknown] pravastatin 20 mg PO QHS 09/12/21 [History Last Taken Unknown] ropinirole 0.5 mg PO QHS 09/12/21 [History Last Taken Unknown] tiotropium bromide [Spiriva Respimat] 2 puff INHALATION DAILY 09/12/21 [History Last Taken Unknown] acetaminophen 500 mg PO Q6H PRN 11/15/21 [History Last Taken Unknown] amoxicillin-pot clavulanate 1 tab PO BID 11/15/21 [History Last Taken Unknown] cyanocobalamin (vitamin B-12) [B-12 DOTS] 500 mcg PO DAILY 11/15/21 [History Last Taken Unknown] empagliflozin [Jardiance] 25 mg PO DAILY 11/15/21 [History Last Taken Unknown] lactobacillus combination no.4 [Probiotic] 3,000 mmu cells PO DAILY 11/15/21 [History Last Taken Unknown] sertraline [Zoloft] 25 mg PO DAILY 11/15/21 [History Last Taken Unknown] Allergy/AdvReac Type Severity Reaction Status Date / Time cortisone Allergy Rash Verified 01/06/22 14:08 glyburide Allergy Swelling Verified 01/06/22 14:08 latex Allergy Rash Verified 01/06/22 14:08 Sulfa (Sulfonamide Allergy Rash Verified 01/06/22 14:08 Antibiotics) Surgical History History of ankle surgery History of bunionectomy History of cardiac catheterization Hx of breast surgery Hx of heart artery stent Hx of knee surgery Social History Smoking Status: Current every day smoker tobacco type: cigarettes Vital Signs Vital Signs Vital Signs: 01/10/22 08:37 Temperature 95.4 F L Temperature Source Temporal Pulse Rate 89 Blood Pressure 165/80 H Blood Pressure Mean 108 Blood Pressure Source Monitor Weight Weight: 136 lb Body Mass Index (BMI) 21.2 Physical Exam Const alert, oriented x3, no apparent distress, average body habitus and well nourished General Appearance: cooperative, comfortable, well kempt and well developed Orientation / Consciousness: awake, oriented to person, oriented to place and oriented to time HEENT normocephalic and head/scalp atraumatic Head and Scalp: normal to inspection, normocephalic and atraumatic External Ear: external ears normal Eyes PERRL and EOMs intact bilaterally General Eye: normal appearance of both eyes Resp normal respiratory effort, normal air movement, no retractions and no use of accessory muscles Effort and Inspection: able to speak in complete sentences Extremity no calf tenderness General Extremity: Negative for clubbing or cyanosis Skin Wound Narrative: The dehiscent surgical wound on the left anterior knee is now nearly totally healed. Unfortunately, however, there appears to be a draining fistula at the inferior portion of her surgical incision, which is suspected to extend from the joint space to the skin. There is a small opening of approximately 3 mm, from which serous drainage is noted. The left knee is mildly swollen. There is no significant erythema or cellulitis. The more superior portion of the patient's surgical wound appears to be healed. Neuro oriented x3, CN's II-XII intact bilaterally and moves all extremities Sensorium / Orientation: awake, alert, oriented to person, oriented to place and oriented to time Psych Appearance: grossly normal and appropriate Attitude: calm Activity / Motor Behavior: appropriate eye contact Speech: normal speech Mood & Affect: euthymic mood Thought Process: normal thought process Thought Content: normal thought content Attention / Concentration: attention grossly intact Debridement Note Debridement Note No debridement was completed: No debridement was completed today Post-Debridement Measurements and Additional Note: Post-Debridement Measurements/Treatment CARROLL - Nurse 1 - General Ulcer Assessment Start: 01/03/22 08:28 Freq: Status: Active Protocol: ROGELIO Activity Type Activity Date Activity User E-Sign Co-Sign Detail Recorded Client Recorded Date Recorded By Document 01/03/22 08:29 DL [id number] 01/03/22 08:37 DL Document 01/10/22 08:37 AK [id number] 01/10/22 08:40 AK 01/03/22 01/10/22 08:29 08:37 WC - Today's Visit Information Type of service Follow-up Visit Follow-up Visit (Physician/ELECTRONIC COILS SUPERVISOR (Physician/ELECTRONIC COILS SUPERVISOR ) ) Arrival Mode Ambulatory Ambulatory Transfer Assistance None Patient Identification Verified (Name & Yes No ) Patient Requires Transmission-Based No No Precautions Safety Precautions NA Height and Weight Body Mass Index (BMI) 21.2 21.2 BMI Classification Normal Normal Vital Signs Temperature (97.8 F-99.1 F) 97.7 F L 95.4 F L Temperature Source Temporal Temporal Pulse Rate (60-100) 99 89 Pulse Location Monitor Monitor Respiratory Rate (12-18) 18 Respiratory rate source Observation Blood Pressure (90/60-120/80) 164/78 H 165/80 H Blood Pressure Mean 106 108 Source Monitor Monitor History Since Last Visit- (Skip if this is Patient's initial visit) Have you changed medications since your No No last visit? Any new allergies or adverse reactions No No Had a fall/change in ADL's that may No No increase risk of falls Signs or symptoms of abuse and/or No No neglect since last visit Have you been in the hospital since your No No last visit? Has dressing in place as prescribed Yes Yes Has compression in place as prescribed N/A Yes Has offloadiing in place as prescribed Yes N/A Experienced any changes in pain level or No No management Left Footwear Regular Shoe Right Footwear Regular Shoe Pain Scale: 0-10 Numeric Is Patient Pain Free? Yes Yes - Nurse 1 - General Ulcer Measurement Start: 01/03/22 08:28 Freq: Status: Active Protocol: Activity Type Activity Date Activity User E-Sign Co-Sign Detail Recorded Client Recorded Date Recorded By Document 01/03/22 08:29 DL [id number] 01/03/22 08:37 DL Document 01/10/22 08:37 AK [id number] 01/10/22 08:40 AK 01/03/22 01/10/22 08:29 08:37 Wound Center Nurse 1 #2 Left Knee Distal -Combined with other wound No -Current Size (cm) - Length 0 0.1 -Current Size (cm) - Width 0 0.1 -Current Size (cm) - Depth 0 1.4 -Total Square Cm 0 0.01 -Photo Taken Yes No -Tunneling No No -Undermining/Tunneling No -Circular Undermining No -Change in Wound Grade/Stage No -Exudate Amt None Present Medium -Exudate Type Sanguineous -Wound Margin Flat & Intact Distinct, Outline Attached -Granulation Amt Large (67-100%) None Present (0 %) -Granulation Quality [place] N/A -Slough/Fibrin Yes -Necrosis Amt Small (1-33%) -Necrotic Tissue Type Adherent Slough -Structure Exposed N/A N/A -Texture (Isis-wound Skin Appearance) Scarring Assessed, Scarring -Moisture (Isis-wound Skin Appearance) No Abnormality No Abnormality, Assessed -Color (Isis-wound Skin Appearance) No Abnormality No Abnormality, Assessed -Temperature (Isis-wound Skin No Abnormality No Abnormality Appearance) (Pt Warm) (Pt Warm) -Tenderness on Palpation (Isis-wound No No Skin Appearance) -Ulcer Cleansing Soap and Water Rinsed/ Irrigated with Saline -Foul Odor after Cleansing Yes, Due to No Product Use -Anesthetic Used 4% Lidocaine Solution #1 Left knee Proximal -Current Size (cm) - Length 0.5 -Current Size (cm) - Width 0.5 -Current Size (cm) - Depth 2 -Total Square Cm 0.25 -Photo Taken Yes -Exudate Amt Large -Exudate Type Serosanguineous -Wound Margin Distinct, Outline Attached -Granulation Quality [place] -Necrosis Amt Small (1-33%) -Structure Exposed Tendon,N/A -Texture (Isis-wound Skin Appearance) Localized Edema ,Scarring -Moisture (Isis-wound Skin Appearance) No Abnormality -Color (Isis-wound Skin Appearance) No Abnormality -Temperature (Isis-wound Skin No Abnormality Appearance) (Pt Warm) -Ulcer Cleansing Soap and Water -Foul Odor after Cleansing No -Anesthetic Used 4% Lidocaine Solution WC - Nurse 3 - General Ulcer D/C NN Start: 01/03/22 08:28 Freq: Status: Active Protocol: Activity Type Activity Date Activity User E-Sign Co-Sign Detail Recorded Client Recorded Date Recorded By Document 01/03/22 09:32 KR [id number] 01/03/22 09:33 KR Document 01/10/22 09:07 DL [id number] 01/10/22 09:08 DL 01/03/22 01/10/22 09:32 09:07 Wound Care Nurse 3 #2 Left Knee Distal -Ulcer Cleansing Rinsed/ Irrigated with Saline -Foul Odor after Cleansing No -Primary Dressing Applied Aquacel Rope, Optilok 6.5x10 -Primary Dressing Covered/Secured with Dry Gauze -Other Covering DELMAR -Aquacel Rope 1 -Optilok 6.5x10 1 Treatment Response Procedure Tolerated Well Pain Scale: 0-10 Numeric Is Patient Pain Free? Yes Yes WC - Visit Discharge Discharge Condition Stable Stable Ambulatory Status Ambulatory Ambulatory Transportation Private Auto Private Auto Notes: Pt scheduled for surgery for hardware removal on saturday 01/13. discharged from . Assessment/Plan Assessment/Plan (1) Prosthetic joint infection: CODE(S): T84.50XA - Infection and inflammatory reaction due to unspecified internal joint prosthesis, initial encounter (2) Surgical wound dehiscence: CODE(S): T81.31XA - Disruption of external operation (surgical) wound, not elsewhere classified, initial encounter QUALIFIERS: Encounter type: initial encounter Qualified Code(s): T81.31XA - Disruption of external operation (surgical) wound, not elsewhere classified, initial encounter (3) Wound infection after surgery: CODE(S): T81.49XA - Infection following a procedure, other surgical site, initial encounter (4) Osteoarthritis (arthritis due to wear and tear of joints): CODE(S): M19.90 - Unspecified osteoarthritis, unspecified site (5) Tobacco abuse counseling: CODE(S): Z71.6 - Tobacco abuse counseling (6) Tobacco abuse: CODE(S): Z72.0 - Tobacco use (7) Lumbar disc disease: CODE(S): M51.9 - Unspecified thoracic, thoracolumbar and lumbosacral intervertebral disc disorder (8) Scoliosis: CODE(S): M41.9 - Scoliosis, unspecified (9) Hypertension: CODE(S): I10 - Essential (primary) hypertension (10) History of myocardial infarction: CODE(S): I25.2 - Old myocardial infarction (11) Hyperlipidemia: CODE(S): E78.5 - Hyperlipidemia, unspecified (12) Diabetes mellitus: CODE(S): E11.9 - Type 2 diabetes mellitus without complications QUALIFIERS: Diabetes mellitus type: type 2 Diabetes mellitus line service supervisor insulin use: without residential use Laterality: left PLAN: This is s a 66-year-old female with a dehiscent, infected surgical wound on the left anterior knee. Her recent management at the [facility] is well-documented by means of weekly visits and wound care management. Approximately 10 to 14 days ago, she developed a rather large amount of serous drainage from the inferior portion of her dehiscent surgical left knee wound. Concern was aroused as to the possibility of a prosthetic joint infection, and her Orthopedic surgeon, Dr. Reed Lopez, was contacted. Since patient's last visit 1 week ago, the patient has been evaluated by Dr. Lopez, and his associated, Dr. Goff. There is concurrence that the manifestations are consistent with a prosthetic joint infection. As result, her Orthopedic surgeons plan to return the patient to surgery for removal of the infected prosthetic joint, and placement of antibiotic beads or similar. Her surgical procedure is scheduled for Sunday of this week, three days hence. Therefore, subsequent management will be deferred to the Orthopedic service. The patient will be discharged from the wound care facility today, and future care will remain available at the [facility] as warranted. At this juncture, subsequent care will be deferred to her Orthopedic providers. The patient has been advised to stop smoking. She has been advised to consume a healthy, well-balanced diet. Optimization of her glycemic control has been recommended. Total time: 29 minutes
== END 2022-01-10 14:36 | disposition home or self-care (01) ==
LOC: WC 08:30
PROVIDERS: PCP Family Medicine; Visit Provider Surgery
DX: T81.49XA Infection following a procedure, other surgical site, initial encounter (principal); T84.50XA Infection and inflammatory reaction due to unspecified internal joint prosthesis, initial encounter; J44.9 Chronic obstructive pulmonary disease, unspecified; E11.9 Type 2 diabetes mellitus without complications; M41.9 Scoliosis, unspecified; E78.00 Pure hypercholesterolemia, unspecified; Z71.6 Tobacco abuse counseling; E78.5 Hyperlipidemia, unspecified; M19.90 Unspecified osteoarthritis, unspecified site; F17.210 Nicotine dependence, cigarettes, uncomplicated; I10 Essential (primary) hypertension; M51.9 Unspecified thoracic, thoracolumbar and lumbosacral intervertebral disc disorder
CPT/HCPCS: 99213; G0463

== ENCOUNTER 2022-01-13 11:39 | Inpatient (IN) | payer BC, SELFPAY ==
[2022-01-09 16:16] LABS: Magnesium 1.6 mg/dL (1.6-2.6)
[2022-01-10 11:06] LABS: Absolute Lymphocyte Count 3.69 X10^3/uL (0.83-4.51); Absolute Neutrophil Count 4.1 X10^3/uL (2.0-7.7); Basophil# 0.07 X10^3/uL; Basophil% 0.8 % (0-1); Eosinophil# 0.19 X10^3/uL; Eosinophils% 2.2 % (0-5); Hematocrit 37.2 % (37-47); Hemoglobin 12.2 g/dL (12.0-15.0); Lymphocyte # 3.69 X10^3/ul (0.83-4.51); Mean Corp Hgb Conc 32.8 g/dL (32-36); Mean Corpuscular Hgb 28.8 pg (27.0-32.0); Mean Corpuscular Volume 87.7 fL (81-99); Mean Platelet Vol. 8.9 fl (6.2-12.0); NRBC Flagged by Analyzer 0 % (0-5); Neutrophil # 4.07 X10^3/uL (2.7-7.7); Neutrophil % 46.3 % (47-70); Platelet Count 531 K/mm3 (150-450); RBC Distribution Width CV 12.4 % (11.6-14.6); RBC Distribution Width SD 39.8 fl (35.1-43.9); Red Blood Count 4.24 M/mm3 (4.2-5.4); White Blood Count 8.8 K/mm3 (4.4-11.0)
[2022-01-10 11:25] LABS: Hemoglobin A1c 7.3 % (3.8-5.6)
[2022-01-10 11:36] LABS: Albumin, Serum 3.4 g/dL (3.2-5.0); Anion Gap 8 (5-15); BUN 19 mg/dL (7-18); BUN/Creat Ratio 19.9 RATIO (10-20); Chloride 107 mmol/L (98-107); Creatinine, Serum 0.95 mg/dL (0.55-1.02); EST Glomerular Filtration Rate 63 mL/min (>60); Est Glom Filt Rate - Afr Amer 76 mL/min (>60); Glucose 127 mg/dL (74-106); Potassium 4.2 mmol/L (3.5-5.1); Sodium Level 139 mmol/L (136-145)
[2022-01-13] VITALS (16 sets, daily range): BP systolic 98–159; BP diastolic 49–70; PULSE 63–78; RESP 14–18; TEMP 36.1–37.7; O2SAT 89–100; BMI 22.2
[2022-01-13] MEDS: Lactated Ringers 1,000 ML 999 ML IV ×2 (07:56→09:30)
[2022-01-13] MEDS: Acetaminophen 500 MG Tablet 1000 MG PO ×2 (08:03→17:52)
[2022-01-13] MEDS: Gabapentin 600 MG Tablet PO (08:03)
[2022-01-13 08:15] LABS: Bedside Glucose 243 mg/dL (74-106)
[2022-01-13] MEDS: Insulin Lispro 100 UNIT/ML INSULN.PEN SC (08:31)
[2022-01-13] MEDS: Cefazolin 2 GM in 0.9% Normal Saline 100 ML IV (09:00)
[2022-01-13] MEDS: TXA 1000mg in NS100 100ml (IVPB at Closure) 660 MG IV (09:10)
[2022-01-13] MEDS: Lactated Ringers 1,000 ML 125 ML IV (09:30)
[2022-01-13] MEDS: Cefazolin 1 GM/5 ML Vial 2 GM OPERA.SITE (10:40)
[2022-01-13] MEDS: Vancomycin IV 1,000 MG/20 ML Vial 6000 MG OPERA.SITE (10:40)
[2022-01-13] MEDS: TXA 1000mg in NS100 100ml (IVPB at Incision) 660 MG IV (11:15)
--- NOTE | 2022-01-13 11:45 | PCM.OPRPT ---
Report of Operation Date of Procedure: 01/13/22 Pre-Operative Diagnosis: Left knee periprosthetic joint infection Left knee draining sinus Post-Operative Diagnosis: Left knee periprosthetic joint infection Left knee draining sinus Surgery/Procedure Performed:: 1. Irrigation debridement complete synovectomy, explantation with placement of antibiotic spacer articulating left knee 2. Placement of nonbiodegradable antibiotic delivery system left knee 3. Sinus tract excision left knee 2 cm x 4 cm Description of Surgical Findings:: 2 cm x 4 cm sinus tract was excised. Moderate bone liquefication in the proximal tibia behind the tibial baseplate. Minimal bone loss on the femur. Surgeon: Efren Goff copra sampler: Merlene Carlton Type of Anesthesia: General Anesthesiologist: Ishmael Turner Special Medications: Ancef, TXA Specimen's removed: 3 separate specimens were sent to microbiology. Sinus tract sent to pathology Estimated Blood Loss (mL): 150 Fluids Replaced: 1500 mL crystalloid Description of Procedure: Brief history operative indications: 66-year-old F with history of diabetes mellitus and tobacco use had a total knee replacement in September 2021. Patient presented to my care with draining sinus and obvious signs of infection. We obtain medical clearance at that point. Based on her history and meeting appropriate cirteria for PJI I did recommend a two-stage revision. After discussion of risks and benefits including reinfection, continued infection, blood loss, DVTs, PEs, nervous damage, fractures with explantion infection, continued and super infection, wound healing complication and the risk of anesthesia including loss of life patient was able to proceed and signed an informed consent. Procedure: On the date of procedure patient's L lower extremity was marked in the preoperative area. The patient was then taken back to the operating room where the patient was placed on the table in the supine position. All bony prominences were identified a well-padded. Anesthesia assumed control of the C-spine and airway and remained controlled throughout the remainder of the procedure. A tourniquet was placed on the left upper thigh and the leg was prepped in a sterile fashion. The surgeon then scrubbed at this time. Upon reentering the room left lower extremity was draped in a standard orthopedic fashion. A timeout was then called and everyone agreed upon the side, the site, the procedure to be performed, patient's identity and antibiotics given. The leg was elevated for period of time and the tourniquet was placed up to 250 mmHg with the knee in flexion. A midline skin incision was made using the previous incision and extending it proximally and distally to identify normal tissue planes. Tract was excised from the distal one third of the incision 2 cm x 4 cm. This tracked down to the joint and communicated clearly with the implants. Medial and lateral flaps were developed appropriate releases. The standard medial parapatellar arthrotomy was made and the patella was subluxed laterally. At this time an aggressive synovectomy was performed re-creating the medial gutter first, then the suprapatellar pouch than the lateral gutter. Once this was completed the knee was flexed up an osteotome was used to remove the tibial polyethylene. The remainder of the synovium was debrided. The standard deep MCL release was done and the patella scar pad was resected and lateral releases were performed. Next our attention was directed to the femur. Flexible osteotomes and TPS saw were used to systematically break up the bone cement/implant interface. Once we had adequately disrupted this interface bone tamp was used to remove the implant. This was done with minimal bone loss on the implant however there was significant areas of bone loss especially in the posterior lateral femoral condyle.. At this time attention was now directed towards the proximal tibia. Flexible osteotomes and TPS saw were used to systematically break up the bone cement/implant interface. Once we had adequately disrupted this interface bone tamp was used to remove the implant. This was done with minimal bone loss. Attention was directed then towards the patella where the patella implant was removed using osteotomes and TPS saw. After this was completed we carefully debrided any synovial membrane from the distal femur as well as proximal tibia. Using a bur and curettes to remove any of this. Once we are happy with this we then flexed the knee at 90 degrees and made a cut neutral to the tibial axis on the tibia to clean up the tibia. We then debrided the remainder of the posterior knee. Tourniquet was let down hemostasis was obtained. Tourniquet was placed back up as we then trialed. We trialed a size 4 femur which showed an adequate fit as well as a 16 mm tibia. After we are happy with our trial implants the wound was copiously irrigated out with 6 L of normal saline under low-pressure lavage while two antibiotic cement dowels were created on the back table. Femoral and tibial antibiotic cement dowels were then placed in the canals after irrigating out the knee. At this time the cement was mixed with the tibia and the tibia was connected to the cement dowel for a stem. The knee was flexed exposing the tibia and the tibia was cemented into place with cement mixing in a portion of the antibiotics. Once this was set we then mixed our cement and mixing for the femur to be carefully exposed the femur and try to pack cement into the bone defect. We then placed cement on the end of the femur and cemented the femur into place. Knee was placed in extension. Excess cement was removed from both the femur and the tibia. The cement was allowed to cure with the knee in extension. Once the final components were placed a dilute Betadine solution was used to irrigate out the wound for 3 minutes followed by chlorhexidine solution finally the wound was copiously irrigated with normal saline solution. A Hemovac drain was placed superior laterally. The wound was closed in a layer andrews fashion using #1 vicryl interrupted sutures for the arthrotomy, 2-0 interrupted Vicryl for the subcuticular layer and nylon sutures for final skin closure. A sterile compressive dressing was then placed. The patient was then awakened from anesthesia, transferred to the [facility] and transferred to the PACU for recovery. Post op plan DVT ppx: Aspirin 81 mg twice daily for 4 weeks followed as well as Plavix from previous treatment, thigh high compression stockings Follow up: in office in 2 weeks for wound check PT: to start POD #0 at hospital. Patient will be toe-touch weightbearing for 2 weeks followed by partial weightbearing. At 2 weeks she will also start range of motion exercises. Currently she will be in a knee immobilizer with no flexion of the knee as the wound begins to heal. Infection: Infectious diseases consulted for antibiotic management. Patient started on Ancef and vancomycin postoperatively. Patient had strep and staph positive culture from the wound center my physician television production assistant was a vital part of this case. He was important in appropriate retraction during the case, and protection of soft tissues during bony cuts. His intimate knowledge of the case and my steps aided in safe and expedient completion of the procedure as well as appropriate position of the leg during the case. He was also vital in assisting with closure under my direct supervision. Implants Used: Dawson 3 x 16 mm all polyethylene tibia, size 4 CR Triatholon femur Complications No intraoperative complications Admit VTE Documentation VTE Present on Admission: No VTE Mechan Device Prophylaxis: SCD's and Thigh High DONALD Hose VTE Pharm Prophylaxis ordered?: Yes
--- NOTE | 2022-01-13 12:15 | RAD_ITS ---
STUDY: X-RAY - LEFT KNEE REASON FOR EXAM: Female, 66 years old. Post op -- AP and Lateral xray of operative knee in PACU TECHNIQUE: 2 view(s) of the knee. COMPARISON: Comparison is made with prior study dated 09/26/2021. FINDINGS: The patient is status post a redo total knee replacement. Post operative soft tissue swelling. RAD/Knee 1 or 2 Views IMPRESSION: Total knee arthroplasty. There is good alignment. Postoperative soft tissue changes. Electronically Signed: Crow Farah MD at 12:57 EDT ,
[2022-01-13 12:21] LABS: Bedside Glucose 132 mg/dL (74-106)
--- NOTE | 2022-01-13 16:18 | CON.PCM.ID_ITS ---
Assessment & Plan Assessment/Plan (1) Prosthetic joint infection: PLAN: Recent wound cx with MS-solo riley. Now s/p I&D and spacer placement by Dr. Goff 01/13/22. Surg cx pending. Given vanc/cefazolin torey- op. Will order ceftriaxone to start tomorrow and follow cx data. Will follow, thank you HPI Consult Data Date of Consult: 01/13/22 HPI Narrative HPI Narrative: CHELITA BUSCH, is a 66 F who presented with several weeks progressive L knee pain, redness, swelling, and drainage. Had knee replacement done in September. Given courses of po abx (augmentin and she thinks doxy most recently), referred to wound center and to Dr. Goff. Taken to OR this AM for I&D and spacer placement. Wound cx with MS-CoNS recently. Some pain post-op. No fever. Full ROS performed and neg except as noted above. FORMERLY [facility], [facility] Medical History Anxiety Arthritis Back pain Cardiology follow-up encounter COPD (chronic obstructive pulmonary disease) Diabetes Diabetes mellitus Dietary restriction Fatty liver Gastric reflux High cholesterol History of ankle fracture History of echocardiogram History of edema History of heart attack History of myocardial infarction History of pain when walking History of stress test Hx of mitral valve prolapse Hyperlipidemia Hypertension Low iron Lumbar disc disease Osteoarthritis (arthritis due to wear and tear of joints) Prosthetic joint infection Restless legs Scoliosis Smoker Surgical wound dehiscence Tobacco abuse Tobacco abuse counseling Wears glasses Wound infection after surgery Home Medications Healthy Beets 1 cap PO/SL DAILY 09/12/21 [History Last Taken Unknown] albuterol sulfate [ProAir HFA] 1 inh INHALATION Q6H PRN 09/12/21 [History Last Taken Unknown] aspirin [Aspir-Low] 81 mg PO DAILY 09/12/21 [History Last Taken Unknown] cholecalciferol (vitamin D3) [Vitamin D3] 125 mcg PO DAILY 09/12/21 [History Last Taken Unknown] clopidogrel [Plavix] 75 mg PO DAILY 09/12/21 [History Last Taken 01/08/22] ferrous sulfate [iron] 325 mg PO QODAY 09/12/21 [History Last Taken Unknown] fluticasone propion-salmeterol [Advair Diskus] 1 inh INHALATION BID 09/12/21 [History Last Taken Unknown] isosorbide mononitrate 60 mg PO DAILY 09/12/21 [History Last Taken 01/13/22] losartan 50 mg PO DAILY 09/12/21 [History Last Taken 01/13/22] metformin 1,000 mg PO BID 09/12/21 [History Last Taken Unknown] metoprolol tartrate 50 mg PO BID 09/12/21 [History Last Taken 01/13/22] pantoprazole 20 mg PO DAILY 09/12/21 [History Last Taken 01/13/22] pravastatin 20 mg PO QHS 09/12/21 [History Last Taken Unknown] ropinirole 0.5 mg PO QHS 09/12/21 [History Last Taken 01/13/22] tiotropium bromide [Spiriva Respimat] 2 puff INHALATION DAILY 09/12/21 [History Last Taken Unknown] acetaminophen 500 mg PO Q6H PRN 11/15/21 [History Last Taken Unknown] amoxicillin-pot clavulanate 1 tab PO BID 11/15/21 [History Last Taken Unknown] cyanocobalamin (vitamin B-12) [B-12 DOTS] 500 mcg PO DAILY 11/15/21 [History Last Taken Unknown] empagliflozin [Jardiance] 25 mg PO DAILY 11/15/21 [History Last Taken Unknown] lactobacillus combination no.4 [Probiotic] 3,000 mmu cells PO DAILY 11/15/21 [History Last Taken Unknown] sertraline [Zoloft] 25 mg PO DAILY 11/15/21 [History Last Taken 01/13/22] Allergy/AdvReac Type Severity Reaction Status Date / Time cortisone Allergy Rash Verified 01/13/22 07:46 glyburide Allergy Swelling Verified 01/13/22 07:46 latex Allergy Rash Verified 01/13/22 07:46 Sulfa (Sulfonamide Allergy Rash Verified 01/13/22 07:46 Antibiotics) Surgical History History of ankle surgery History of bunionectomy History of cardiac catheterization Hx of breast surgery Hx of heart artery stent Hx of knee surgery Social History Smoking Status: Current every day smoker tobacco type: cigarettes Physical Exam Const alert and no apparent distress General Appearance: cooperative Exam Limitations: no limitations HEENT normocephalic and head/scalp atraumatic Eyes PERRL and EOMs intact bilaterally Neck supple and No nodes Resp normal air movement and clear to auscultation bilaterally Cardio regular rate and regular rhythm GI soft to palpation, non-tender and non-distended Extremity Extremity Narrative: LLE wrapped Skin no rashes or lesions noted Neuro CN's II-XII intact bilaterally Lab / Micro Data Result Diagrams: 01/10/22 10:38 01/10/22 10:38 Labs: Laboratory Results - last 24 hr 01/13/22 07:54: POC Glucose 243 H 01/13/22 12:15: POC Glucose 132 H Micro: Microbiology 01/13/22 12:17 Tissue - Knee Gram Stain - Final 01/13/22 12:17 Tissue - Knee Gram Stain - Final 01/13/22 12:17 Tissue - Knee Gram Stain - Final 01/13/22 12:17 Tissue - Knee Gram Stain - Final Radiology Impression Knee X-Ray 01/13/22 12:15 IMPRESSION: Total knee arthroplasty. There is good alignment. Postoperative soft tissue changes. Electronically Signed: Crow Farah MD at 12:57 EDT ,
[2022-01-13] MEDS: Ondansetron 4 MG/2 ML Vial IV (17:06)
[2022-01-13] MEDS: Vancomycin IV 1,000 MG/200 ML BAG 200 MG IV (17:06)
[2022-01-13] MEDS: 0.9% Saline Lock 10 ML Syringe IV (17:06)
[2022-01-13] MEDS: metFORMIN HCl 1,000 MG Tablet 1000 MG PO (17:52)
[2022-01-13] MEDS: oxyCODONE 5 MG Tablet PO ×2 (17:52→21:41)
--- NOTE | 2022-01-13 18:04 | PN.HOSP_ITS ---
Subjective Subjective Patient was seen and examined today at the request of orthopedic surgery for medical management following placement of an antibiotic spacer reticulating the left knee, patient had a total knee replacement in September 2021, the area became infected and the patient had to undergo the procedure today. Chronic medical problems include type 2 diabetes, hyperlipidemia, coronary artery disease, osteoarthritis, and chronic obstructive pulmonary disease. At the time of my examination, patient does complain of some incisional left knee pain, she does not not have any complaints of any shortness of breath, fever, or chills. Patient's medications were reviewed by myself. Objective Data Objective Data Vital Signs: Vital Signs Temp Pulse Resp BP Pulse Ox 97.6 F L 63 16 141/56 H 100 01/13/22 17:55 01/13/22 17:55 01/13/22 17:55 01/13/22 17:55 01/13/22 17:55 Oxygen Flow Rate (L/min) 2 Oxygen Delivery Method Nasal Cannula Weight: 64.4 kg Body Mass Index (BMI) 22.2 Intake & Output: Intake and Output for Last 24 Hours 01/11/22 01/12/22 01/13/22 23:59 23:59 23:59 Intake Total 3734.00 / 3734.00 Output Total 1000 / 1000 Balance 2734.00 / 2734.00 Lab / Micro Data Result Diagrams: 01/10/22 10:38 01/10/22 10:38 Labs: Laboratory Results - last 24 hr 01/13/22 07:54: POC Glucose 243 H 01/13/22 12:15: POC Glucose 132 H Micro: Microbiology 01/13/22 12:17 Tissue - Knee Gram Stain - Final 01/13/22 12:17 Tissue - Knee Gram Stain - Final 01/13/22 12:17 Tissue - Knee Gram Stain - Final 01/13/22 12:17 Tissue - Knee Gram Stain - Final 01/10/22 10:38 Swab (Method) Nasal Screen MRSA/MSSA - Final Radiography Diagnostic Testing: Radiology Impression Knee X-Ray 01/13/22 12:15 IMPRESSION: Total knee arthroplasty. There is good alignment. Postoperative soft tissue changes. Electronically Signed: Crow Farah MD at 12:57 EDT , Physical Exam Const alert, oriented x3, no apparent distress, average body habitus and healthy a ppearing General Appearance: cooperative, well kempt and well developed Orientation / Consciousness: awake, oriented to person, oriented to place and or iented to time HEENT normocephalic, head/scalp atraumatic and moist oral mucous membranes Head and Scalp: normocephalic Eyes PERRL, EOMs intact bilaterally and conjunctivae normal Neck nuchal rigidity, supple, no JVD, thyroid normal and no carotid bruits General: trachea midline Resp normal respiratory effort and clear to auscultation bilaterally Auscultation: Negative for rales, rhonchi or wheezes Cardio regular rate, regular rhythm, S1 normal heart sound, S2 normal heart sound, no murmurs, no rub and no gallops GI normal to inspection, nondistended, normoactive bowel sounds, soft to palpation, non-tender and non-distended Skin no rashes or lesions noted General Skin Exam: no breakdown Neuro oriented x3, CN's II-XII intact bilaterally, no focal motor deficits and no se nsory deficits noted Sensorium / Orientation: awake and alert Speech: speech normal Psych affect normal Assessment & Plan Assessment/Plan (1) Hypertension: PLAN: 1. 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
[2022-01-13] MEDS: Cefazolin 1 GM/50 ML BAG IV (18:16)
[2022-01-13] MEDS: Budesonide Respules 0.5 MG/2 ML AMPUL.NEB. INHALATION (19:03)
[2022-01-13] MEDS: Ipratropium/Albuterol Sulfate 3 ML AMPUL.NEB INHALATION (19:03)
--- NOTE | 2022-01-13 20:05 | PCM.RX.CS ---
Consult Pharmacy has been consulted to manage selected antiobiotic: Vancomycin Type of Consult: New start Suspected Infection: Skin/Soft tissue Prior Doses of Antibiotics Received/Current Regimen: Received initial dose of 1gm iv x 1 on 01.13.22. Labs: Sodium 139 mmol/L (136-145) 01/10/22 10:38 Potassium 4.2 mmol/L (3.5-5.1) 01/10/22 10:38 Chloride 107 mmol/L (98-107) 01/10/22 10:38 Carbon Dioxide 24.0 mmol/L (21.0-32.0) 01/10/22 10:38 Anion Gap 8 (5-15) 01/10/22 10:38 BUN 19 mg/dL (7-18) H 01/10/22 10:38 Creatinine 0.95 mg/dL (0.55-1.02) 01/10/22 10:38 Est GFR (MDRD) Af Amer 76 mL/min (>60) 01/10/22 10:38 Est GFR (MDRD) Non-Af 63 mL/min (>60) 01/10/22 10:38 BUN/Creatinine Ratio 19.9 RATIO (10-20) 01/10/22 10:38 Glucose 127 mg/dL (74-106) H 01/10/22 10:38 Microbiology: Microbiology 01/13/22 12:17 Tissue - Knee Gram Stain - Final 01/13/22 12:17 Tissue - Knee Gram Stain - Final 01/13/22 12:17 Tissue - Knee Gram Stain - Final 01/13/22 12:17 Tissue - Knee Gram Stain - Final 01/10/22 10:38 Swab (Method) Nasal Screen MRSA/MSSA - Final Weight used for dosin.4 kg Estimated Creatinine Clearance: 58 ml/min Goal Trough: 10-15 mcg/mL Pharmacy Plan for Drug Dosing: Will begin 1250mg iv q24h per protocol. Trough level ordered for before 3rd dose. Pharmacy Service will continue to monitor and adjust dosing as required. Follow-Up Labs: Trough Vancomycin - 01.15.22 @1630 before 1700 dose
[2022-01-13] MEDS: Pramipexole Di-HCl 0.25 MG Tablet PO (21:38)
[2022-01-13] MEDS: Metoprolol Tartrate 50 MG Tablet PO (21:38)
[2022-01-13] MEDS: Senna/Docusate Sodium 1 Tablet 2 TABLET PO (21:38)
[2022-01-13] MEDS: Aspirin 81 MG TAB.CHEW PO (21:38)
[2022-01-13] MEDS: Pravastatin 20 MG Tablet PO (21:38)
[2022-01-14] VITALS (11 sets, daily range): BP systolic 112–163; BP diastolic 43–70; PULSE 68–112; RESP 15–18; TEMP 37–37.3; O2SAT 94–98
[2022-01-14] MEDS: Cefazolin 1 GM/50 ML BAG IV (01:20)
[2022-01-14] MEDS: Acetaminophen 500 MG Tablet 1000 MG PO ×3 (05:13→21:32)
[2022-01-14] MEDS: oxyCODONE 5 MG Tablet PO ×3 (05:14→19:52)
[2022-01-14 05:32] LABS: Hematocrit 33.4 % (37-47); Hemoglobin 10.9 g/dL (12.0-15.0); Mean Corp Hgb Conc 32.6 g/dL (32-36); Mean Corpuscular Hgb 29.2 pg (27.0-32.0); Mean Corpuscular Volume 89.5 fL (81-99); Mean Platelet Vol. 8.8 fl (6.2-12.0); Platelet Count 431 K/mm3 (150-450); RBC Distribution Width CV 12.7 % (11.6-14.6); RBC Distribution Width SD 41.1 fl (35.1-43.9); Red Blood Count 3.73 M/mm3 (4.2-5.4)
[2022-01-14 06:06] LABS: Anion Gap 5 (5-15); BUN 15 mg/dL (7-18); BUN/Creat Ratio 15.9 RATIO (10-20); Chloride 110 mmol/L (98-107); Creatinine, Serum 0.94 mg/dL (0.55-1.02); EST Glomerular Filtration Rate 64 mL/min (>60); Est Glom Filt Rate - Afr Amer 77 mL/min (>60); Glucose 160 mg/dL (74-106); Potassium 4.7 mmol/L (3.5-5.1); Sodium Level 140 mmol/L (136-145)
[2022-01-14] MEDS: Budesonide Respules 0.5 MG/2 ML AMPUL.NEB. INHALATION ×2 (07:17→19:00)
[2022-01-14] MEDS: Ipratropium/Albuterol Sulfate 3 ML AMPUL.NEB INHALATION ×3 (07:17→19:00)
[2022-01-14] MEDS: Aspirin 81 MG TAB.CHEW PO ×2 (07:56→16:20)
[2022-01-14] MEDS: Senna/Docusate Sodium 1 Tablet 2 TABLET PO (07:56)
[2022-01-14] MEDS: Pantoprazole Sodium 20 MG Tablet PO (07:57)
[2022-01-14] MEDS: Metoprolol Tartrate 50 MG Tablet PO ×2 (07:57→21:32)
[2022-01-14] MEDS: Clopidogrel Bisulfate 75 MG Tablet PO (07:57)
[2022-01-14] MEDS: Empagliflozin 25 MG Tablet PO (07:58)
[2022-01-14] MEDS: Famotidine 20 MG Tablet PO (07:58)
[2022-01-14] MEDS: Losartan Potassium 50 MG Tablet PO (07:58)
[2022-01-14] MEDS: metFORMIN HCl 1,000 MG Tablet 1000 MG PO ×2 (07:59→16:21)
[2022-01-14] MEDS: Sertraline 50 MG Tablet 25 MG PO (07:59)
[2022-01-14] MEDS: Isosorbide Mononitrate 60 MG Tablet PO (08:01)
[2022-01-14] MEDS: Cholecalciferol (Vit D3) 125 MCG CAPSULE (5,000 UNITS) PO (08:04)
--- NOTE | 2022-01-14 08:51 | PN.HOSP_ITS ---
Subjective Subjective Follow-up for postop medical management for left total knee sinus tract excision, explant of total knee and placement of antibiotic spacer Patient was seen and examined. Denied any new complaints. Pain is controlled. Denied any fever chills or chest pain. Objective Data Objective Data Vital Signs: Vital Signs Temp Pulse Resp BP Pulse Ox 98.8 F 87 18 150/69 H 97 01/14/22 05:10 01/14/22 07:57 01/14/22 05:10 01/14/22 05:10 01/14/22 05:10 Oxygen Flow Rate (L/min) 2 Oxygen Delivery Method Room Air Weight: 64.4 kg Body Mass Index (BMI) 22.2 Intake & Output: Intake and Output for Last 24 Hours 01/12/22 01/13/22 01/14/22 23:59 23:59 23:59 Intake Total 4284.00 / 4284.00 450 / 450 Output Total 1900 / 1900 800 / 800 Balance 2384.00 / 2384.00 -350 / -350 Lab / Micro Data Result Diagrams: 01/14/22 05:26 01/14/22 05:26 Labs: Laboratory Results - last 24 hr 01/13/22 12:15: POC Glucose 132 H 01/14/22 05:26: WBC 10.0, RBC 3.73 L, Hgb 10.9 L, Hct 33.4 L, MCV 89.5, MCH 29.2, MCHC 32.6, RDW Std Deviation 41.1, RDW Coeff of Ivanna 12.7, Plt Count 431, MPV 8.8 01/14/22 05:26: Sodium 140, Potassium 4.7, Chloride 110 H, Carbon Dioxide 25.0, Anion Gap 5, BUN 15, Creatinine 0.94, Estim Creat Clear Calc 58.80, Est GFR (MDRD) Af Amer 77, Est GFR (MDRD) Non-Af 64, BUN/Creatinine Ratio 15.9, Glucose 160 H, Calcium 9.0 Micro: Microbiology 01/13/22 12:17 Tissue - Knee Gram Stain - Final 01/13/22 12:17 Tissue - Knee Gram Stain - Final 01/13/22 12:17 Tissue - Knee Gram Stain - Final 01/13/22 12:17 Tissue - Knee Gram Stain - Final 01/10/22 10:38 Swab (Method) Nasal Screen MRSA/MSSA - Final Radiography Diagnostic Testing: Radiology Impression Knee X-Ray 01/13/22 12:15 IMPRESSION: Total knee arthroplasty. There is good alignment. Postoperative soft tissue changes. Electronically Signed: Crow Farah MD at 12:57 EDT , Physical Exam Narrative General: Alert, Oriented x3, Cooperative, no apparent distress HEENT: Atraumatic Oral: Moist Mucosa Neck: Supple Lungs: Normal air movement, Diminished Cardiovascular: Regular rate, Regular Rhythm, Normal S1, Normal S2, No murmurs Abdomen: Bowel Sounds Present, Soft, Non Tender, Non-Distended, No Hepato- splenomegaly Extremities: Left knee has a cooling mat over it Skin: No rashes Neurological: Cranial nerves II-XII grossly intact, Neuro grossly intact Psych/Mental Status: Normal Affect, Appropriate exam Assessment & Plan Assessment/Plan (1) Hypertension: QUALIFIERS: Hypertension type: primary hypertension Qualified Code(s): I10 - Essential (primary) hypertension PLAN: 1. POD #1 status post irrigation and debridement, complete synovectomy, explantation with placement of antibiotic spacer articulating left knee Pain is fairly controlled, continue on current pain management Intra-Op cultures growing gram-positive cocci in clusters Continue on IV ceftriaxone and vancomycin Orthopedic surgery following, PT and OT consulted 2. Hypertension, controlled, continue losartan, metoprolol 3. CAD/hyperlipidemia, stable, continue on aspirin, plavix isosorbide, losartan, metoprolol, pravastatin 4. Type II DM, blood sugars are fairly controlled, continue metformin, Jardiance 5. COPD, not in acute exacerbation, continue on budesonide, breathing treatments as needed 6. DVT PPx- aspirin BID Charges/Coding Visit Charges Inpatient E&M: 88051 Subs Hosp L2
--- NOTE | 2022-01-14 10:02 | PN.ORTHO_ITS ---
Subjective Subjective Patient overall doing well. No acute events overnight. Had sinus tract excision, explant of left total knee and placement of antibiotic spacer yesterday morning. Pain is rated at 6 out of 10. Overall controlled with Tylenol and oxycodone. Not able to participate in physical therapy yesterday due to nausea. Does have some pain over her anterior sage and ankle area. Gram stains show gram-positive cocci in clusters x3. Objective Data Objective Data Vital Signs: Vital Signs Temp Pulse Resp BP Pulse Ox 99.1 F 81 16 134/43 H 95 01/14/22 09:36 01/14/22 09:36 01/14/22 09:36 01/14/22 09:36 01/14/22 09:36 Oxygen Flow Rate (L/min) 2 Oxygen Delivery Method Room Air Weight: 141 lb 15.643 oz Body Mass Index (BMI) 22.2 Intake & Output: Intake and Output for Last 24 Hours 01/12/22 01/13/22 01/14/22 23:59 23:59 23:59 Intake Total 4284.00 / 4284.00 450 / 450 Output Total 1900 / 1900 800 / 800 Balance 2384.00 / 2384.00 -350 / -350 Lab / Micro Data Result Diagrams: 01/14/22 05:26 01/14/22 05:26 Labs: Laboratory Results - last 24 hr 01/13/22 12:15: POC Glucose 132 H 01/14/22 05:26: WBC 10.0, RBC 3.73 L, Hgb 10.9 L, Hct 33.4 L, MCV 89.5, MCH 29.2, MCHC 32.6, RDW Std Deviation 41.1, RDW Coeff of Ivanna 12.7, Plt Count 431, MPV 8.8 01/14/22 05:26: Sodium 140, Potassium 4.7, Chloride 110 H, Carbon Dioxide 25.0, Anion Gap 5, BUN 15, Creatinine 0.94, Estim Creat Clear Calc 58.80, Est GFR (MDRD) Af Amer 77, Est GFR (MDRD) Non-Af 64, BUN/Creatinine Ratio 15.9, Glucose 160 H, Calcium 9.0 Micro: Microbiology 01/13/22 12:17 Tissue - Knee Gram Stain - Final 01/13/22 12:17 Tissue - Knee Gram Stain - Final 01/13/22 12:17 Tissue - Knee Gram Stain - Final 01/13/22 12:17 Tissue - Knee Gram Stain - Final 01/10/22 10:38 Swab (Method) Nasal Screen MRSA/MSSA - Final Radiography Diagnostic Testing: Radiology Impression Knee X-Ray 01/13/22 12:15 IMPRESSION: Total knee arthroplasty. There is good alignment. Postoperative soft tissue changes. Electronically Signed: Crow Farah MD at 12:57 EDT , Knee x-rays personally reviewed showing stable well aligned placement of articulating antibiotic spacer. Physical Exam Narrative Alert and oriented x3 comfortable. Extremity Extremity Narrative: Left lower extremity: Dressing is clean dry and intact Sensations intact to light touch saphenous, sural, superficial peroneal, deep peroneal, and tibial distributions Motors intact EHL, DF, PF calves are soft and supple Brace is intact. No SCD overlying brace on operative side. Assessment & Plan Assessment/Plan (1) Prosthetic joint infection: PLAN: Postop day 1 status post explant left total knee replacement, placement of nonbiodegradable delivery system and sinus tract excision. 1. Pain control: Continue with current regimen oxycodone and Tylenol. Patient complains of 6 out of 10 pain clinically she looks relatively comfortable and vitals are stable would not add additional pain medications at this time. 2. DVT prophylaxis: Aspirin 81 mg twice daily. Resume Plavix today 3. Physical therapy: We will use knee immobilizer brace on left knee for least 2 weeks as we follow the wound. If healing is well we will begin physical therapy with range of motion at that time. Currently therapy should focus on mobility she is touchdown weightbearing with activity as tolerated on the left lower extremity. 4. Left tibia and sage pain: Mild tenderness palpation in the area. Likely related to intraoperative positioning. We will continue to monitor. Will obtain x-rays if patient has difficulty with mobility today. 5. Medical management: Hospitalist service has been consulted for patient's medical comorbidities we will continue to manage her diabetes and other medical comorbidities. Tight control of blood sugars is important to help with infection control 6. ID: Infectious diseases on board. Patient will begin ceftriaxone today. Alexander lyndsey has coag negative staph which appears to be pansensitive. Gram stains are consistent with gram-positive cocci in clusters 3 out of 3. 7. Encourage incentive spirometry and ankle pumps. 8. Disposition: Likely disposition will be to home. However this will depend on patient's mobility over the next 48 hours. Will need to arrange appropriate antibiotic administration and wound care. We will follow the patient in the hospital over the weekend and obtain appropriate arrangements on Sunday after we have had time to follow cultures and finalized antibiotic plans with infectious disease. [facility] Office: (2) Tobacco abuse: PLAN: Encourage cessation, per medicine service (3) Hypertension: PLAN: Well-controlled,per medicine service (4) History of myocardial infarction: PLAN: Stable, per medicine service (5) Hyperlipidemia: PLAN: Per medicine service (6) Diabetes mellitus: QUALIFIERS: Diabetes mellitus type: type 2 Diabetes mellitus termite inspector insulin use: without [facility] use Laterality: left PLAN: Medicine service managing. Recommend tight control less than 180.
--- NOTE | 2022-01-14 11:25 | CASEMGMT ---
MICHELLE ENNIS Face to Face with patient for initial transition planning/care coordination assessment. RN CM introduced self and role at [facility]. Patient lying in bed, alert and oriented. Patient willing to participate in assessment and is able to answer all questions appropriately. Care providers, pharmacy, and demographics verified. Patient wishes to discharge home. CM anticipating patient will need IV atbs at discharge. CM discussed HHC with home IV ATBs. Patient provided with list of HHC and infusions companies in-network with patients insurance. Patient states she has no further needs or concerns at this time. CM to follow for discharge planning needs that may arise. PCP: Patel Specialists: [facility] Pharmacy: [facility] Insurance: [employer] Prescription Benefit: yes Living Will/HPOA: none LNOK: Living Arrangements: Patient lives with in a story home with bed and bath on first floor. Patient states she was independent prior to hospitalization. Transportation: self, DME/HHC: Patient states she has walker, cane, crutches, raised toilet, and shower chair at home. No previous HHC or SNF Disposition Plan: Patient to discharge home with HHC, family support, and follow-up plans in place. Migdalia MELARA, RN, CM
[2022-01-14] MEDS: Ferrous Sulfate 325 MG Tablet PO (12:00)
[2022-01-14] MEDS: Pramipexole Di-HCl 0.25 MG Tablet PO (21:32)
[2022-01-14] MEDS: Pravastatin 20 MG Tablet PO (21:32)
[2022-01-15] VITALS (9 sets, daily range): BP systolic 107–171; BP diastolic 61–72; PULSE 57–109; RESP 14–18; TEMP 37.1–37.3; O2SAT 94–100
[2022-01-15] MEDS: Acetaminophen 500 MG Tablet 1000 MG PO ×3 (05:57→21:25)
[2022-01-15] MEDS: 0.9% Saline Lock 10 ML Syringe IV (05:57)
[2022-01-15 06:20] LABS: Hematocrit 30.2 % (37-47); Hemoglobin 10.3 g/dL (12.0-15.0); Mean Corp Hgb Conc 34.1 g/dL (32-36); Mean Corpuscular Hgb 30.2 pg (27.0-32.0); Mean Corpuscular Volume 88.6 fL (81-99); Mean Platelet Vol. 9.5 fl (6.2-12.0); Platelet Count 424 K/mm3 (150-450); RBC Distribution Width CV 12.4 % (11.6-14.6); RBC Distribution Width SD 39.5 fl (35.1-43.9); Red Blood Count 3.41 M/mm3 (4.2-5.4); White Blood Count 11.9 K/mm3 (4.4-11.0)
[2022-01-15 06:48] LABS: ALB/GLOB Ratio 0.7 RATIO (0.9-2.4); AST(SGOT) 13 U/L (15-37); Alanine Aminotransfer ALT/SGPT 17 U/L (13-56); Albumin, Serum 2.5 g/dL (3.2-5.0); Alkaline Phosphatase 86 U/L (45-117); Anion Gap 6 (5-15); BUN 11 mg/dL (7-18); BUN/Creat Ratio 15.3 RATIO (10-20); Calcium,Total 9.3 mg/dL (8.5-10.1); Chloride 110 mmol/L (98-107); Creatinine, Serum 0.72 mg/dL (0.55-1.02); EST Glomerular Filtration Rate 87 mL/min (>60); Est Glom Filt Rate - Afr Amer 105 mL/min (>60); Estimated Creatinine Clearance 76.76 ml/min; Globulin 3.5 g/dL (2.2-4.2); Glucose 151 mg/dL (74-106); Potassium 4.3 mmol/L (3.5-5.1); Sodium Level 141 mmol/L (136-145)
[2022-01-15] MEDS: Budesonide Respules 0.5 MG/2 ML AMPUL.NEB. INHALATION ×2 (07:11→19:16)
[2022-01-15] MEDS: Ipratropium/Albuterol Sulfate 3 ML AMPUL.NEB INHALATION ×3 (07:11→19:16)
[2022-01-15] MEDS: Clopidogrel Bisulfate 75 MG Tablet PO (07:47)
[2022-01-15] MEDS: Ferrous Sulfate 325 MG Tablet PO (07:47)
[2022-01-15] MEDS: Senna/Docusate Sodium 1 Tablet 2 TABLET PO (07:47)
[2022-01-15] MEDS: metFORMIN HCl 1,000 MG Tablet 1000 MG PO ×2 (07:48→15:58)
[2022-01-15] MEDS: Isosorbide Mononitrate 60 MG Tablet PO (07:48)
[2022-01-15] MEDS: Sertraline 50 MG Tablet 25 MG PO (07:48)
[2022-01-15] MEDS: Metoprolol Tartrate 50 MG Tablet PO ×2 (07:49→21:31)
[2022-01-15] MEDS: Pantoprazole Sodium 20 MG Tablet PO (07:49)
[2022-01-15] MEDS: Cholecalciferol (Vit D3) 125 MCG CAPSULE (5,000 UNITS) PO (07:50)
[2022-01-15] MEDS: Famotidine 20 MG Tablet PO (07:50)
[2022-01-15] MEDS: Aspirin 81 MG TAB.CHEW PO ×2 (07:51→15:58)
[2022-01-15] MEDS: Losartan Potassium 50 MG Tablet PO (07:51)
[2022-01-15] MEDS: Empagliflozin 25 MG Tablet PO (07:51)
[2022-01-15] MEDS: oxyCODONE 5 MG Tablet PO ×2 (07:57→21:23)
--- NOTE | 2022-01-15 09:19 | PN.HOSP_ITS ---
Subjective Subjective Follow-up for postop medical management for left total knee sinus tract excision, explant of total knee and placement of antibiotic spacer Patient was seen and examined. No acute events overnight. She denied any fever or chills or diarrhea. Her pain is controlled Objective Data Objective Data Vital Signs: Vital Signs Temp Pulse Resp BP Pulse Ox 98.8 F 98 16 146/65 H 100 01/15/22 03:11 01/15/22 07:49 01/15/22 03:11 01/15/22 03:11 01/15/22 03:11 Oxygen Flow Rate (L/min) 2 Oxygen Delivery Method Room Air Weight: 64.4 kg Body Mass Index (BMI) 22.2 Intake & Output: Intake and Output for Last 24 Hours 01/13/22 01/14/22 01/15/22 23:59 23:59 23:59 Intake Total 4284.00 / 4284.00 1175 / 1175 Output Total 1900 / 1900 1999 / 1999 Balance 2384.00 / 2384.00 -825 / -825 Lab / Micro Data Result Diagrams: 01/15/22 04:54 01/15/22 04:54 Labs: Laboratory Results - last 24 hr 01/15/22 04:54: WBC 11.9 H, RBC 3.41 L, Hgb 10.3 L, Hct 30.2 L, MCV 88.6, MCH 30.2, MCHC 34.1, RDW Std Deviation 39.5, RDW Coeff of Ivanna 12.4, Plt Count 424, MPV 9.5 01/15/22 04:54: Sodium 141, Potassium 4.3, Chloride 110 H, Carbon Dioxide 25.0, Anion Gap 6, BUN 11, Creatinine 0.72, Estim Creat Clear Calc 76.76, Est GFR (MDRD) Af Amer 105, Est GFR (MDRD) Non-Af 87, BUN/Creatinine Ratio 15.3, Glucose 151 H, Calcium 9.3, Total Bilirubin 0.40, AST 13 L, ALT 17, Alkaline Phosphatase 86, Total Protein 6.0 L, Albumin 2.5 L, Globulin 3.5, Albumin/Globulin Ratio 0.7 L Micro: Microbiology 01/13/22 12:17 Tissue - Knee Gram Stain - Final 01/13/22 12:17 Tissue - Knee Anaerobic Culture - Preliminary No growth in 48 hours. 01/13/22 12:17 Tissue - Knee Gram Stain - Final 01/13/22 12:17 Tissue - Knee Anaerobic Culture - Preliminary No growth in 48 hours. 01/13/22 12:17 Tissue - Knee Gram Stain - Final 01/13/22 12:17 Tissue - Knee Anaerobic Culture - Preliminary No growth in 48 hours. 01/13/22 12:17 Tissue - Knee Gram Stain - Final 01/13/22 12:17 Tissue - Knee Anaerobic Culture - Preliminary No growth in 48 hours. 01/10/22 10:38 Swab (Method) Nasal Screen MRSA/MSSA - Final Physical Exam Narrative General: Alert, Oriented x3, Cooperative, no apparent distress HEENT: Atraumatic Oral: Moist Mucosa Neck: Supple Lungs: Normal air movement, Diminished Cardiovascular: Regular rate, Regular Rhythm, Normal S1, Normal S2, No murmurs Abdomen: Bowel Sounds Present, Soft, Non Tender, Non-Distended, No Hepato- splenomegaly Extremities: Left knee has a cooling mat over it Skin: No rashes Neurological: Cranial nerves II-XII grossly intact, Neuro grossly intact Psych/Mental Status: Normal Affect, Appropriate exam Assessment & Plan Assessment/Plan (1) Hypertension: QUALIFIERS: Hypertension type: primary hypertension Qualified Code(s): I10 - Essential (primary) hypertension PLAN: Summary: 66-year-old female with past medical history of knee replacement who comes in with progressive left knee pain, redness, swelling and drainage. Patient had completed antibiotics in the outpatient. Hospital medicine has been consulted for postop medical management. 1. POD #2 status post irrigation and debridement (01/13/22), complete synovectomy, explantation with placement of antibiotic spacer articulating left knee Pain is controlled, continue on current pain management Intra-Op cultures growing gram-positive cocci in clusters Continue on IV ceftriaxone and vancomycin Orthopedic surgery and ID following, PT and OT consulted Follow-up on final culture results 2. Hypertension, controlled, continue losartan, metoprolol 3. CAD/hyperlipidemia, stable, continue on aspirin, plavix isosorbide, losartan, metoprolol, pravastatin 4. Type II DM, blood sugars are fairly controlled, continue metformin, Jardiance and ISS 5. COPD, not in acute exacerbation, continue on budesonide, breathing treatments as needed 6. DVT PPx- aspirin BID 7. Disposition: Possible Home Charges/Coding Visit Charges Inpatient E&M: 26769 Subs Hosp L2
--- NOTE | 2022-01-15 09:31 | PCM.PN.ORT ---
Subjective Subjective Patient is doing well. No acute events overnight. She has been stable. Continues to have no growth on cultures however gram-positive cocci x3 in clusters on Gram stains. Vital signs are stable. Labs are stable. Overall doing well. No chest pain or shortness of breath. Objective Data Objective Data Vital Signs: Vital Signs Temp Pulse Resp BP Pulse Ox 99.1 F 98 16 151/61 H 98 01/15/22 09:10 01/15/22 09:10 01/15/22 09:10 01/15/22 09:10 01/15/22 09:10 Oxygen Flow Rate (L/min) 2 Oxygen Delivery Method Room Air Weight: 141 lb 15.643 oz Body Mass Index (BMI) 22.2 Intake & Output: Intake and Output for Last 24 Hours 01/13/22 01/14/22 01/15/22 23:59 23:59 23:59 Intake Total 4284.00 / 4284.00 1175 / 1175 50 / 50 Output Total 1900 / 1900 1999 / 1999 Balance 2384.00 / 2384.00 -825 / -825 50 / 50 Lab / Micro Data Result Diagrams: 01/15/22 04:54 01/15/22 04:54 Labs: Laboratory Results - last 24 hr 01/15/22 04:54: WBC 11.9 H, RBC 3.41 L, Hgb 10.3 L, Hct 30.2 L, MCV 88.6, MCH 30.2, MCHC 34.1, RDW Std Deviation 39.5, RDW Coeff of Ivanna 12.4, Plt Count 424, MPV 9.5 01/15/22 04:54: Sodium 141, Potassium 4.3, Chloride 110 H, Carbon Dioxide 25.0, Anion Gap 6, BUN 11, Creatinine 0.72, Estim Creat Clear Calc 76.76, Est GFR (MDRD) Af Amer 105, Est GFR (MDRD) Non-Af 87, BUN/Creatinine Ratio 15.3, Glucose 151 H, Calcium 9.3, Total Bilirubin 0.40, AST 13 L, ALT 17, Alkaline Phosphatase 86, Total Protein 6.0 L, Albumin 2.5 L, Globulin 3.5, Albumin/Globulin Ratio 0.7 L Micro: Microbiology 01/13/22 12:17 Tissue - Knee Gram Stain - Final 01/13/22 12:17 Tissue - Knee Anaerobic Culture - Preliminary No growth in 48 hours. 01/13/22 12:17 Tissue - Knee Gram Stain - Final 01/13/22 12:17 Tissue - Knee Anaerobic Culture - Preliminary No growth in 48 hours. 01/13/22 12:17 Tissue - Knee Gram Stain - Final 01/13/22 12:17 Tissue - Knee Anaerobic Culture - Preliminary No growth in 48 hours. 01/13/22 12:17 Tissue - Knee Gram Stain - Final 01/13/22 12:17 Tissue - Knee Anaerobic Culture - Preliminary No growth in 48 hours. 01/10/22 10:38 Swab (Method) Nasal Screen MRSA/MSSA - Final Physical Exam Const alert, oriented x3 and no apparent distress Extremity Extremity Narrative: Right lower extremity: Dressing is clean dry and intact Sensations intact to light touch saphenous, sural, superficial peroneal, deep peroneal, and tibial distributions Motors intact EHL, DF, PF calves are soft and supple Assessment & Plan Assessment/Plan (1) Prosthetic joint infection: PLAN: Postop day 1 status post explant left total knee replacement, placement of nonbiodegradable delivery system and sinus tract excision. 1. Pain control: Continue with current regimen oxycodone and Tylenol. Patient complains of 6 out of 10 pain clinically she looks relatively comfortable and vitals are stable would not add additional pain medications at this time. 2. DVT prophylaxis: Aspirin 81 mg twice daily. Resume Plavix today 3. Physical therapy: We will use knee immobilizer brace on left knee for least 2 weeks as we follow the wound. If healing is well we will begin physical therapy with range of motion at that time. Currently therapy should focus on mobility she is touchdown weightbearing with activity as tolerated on the left lower extremity. 4. Left tibia and sage pain: Mild tenderness palpation in the area. Likely related to intraoperative positioning. We will continue to monitor. Will obtain x-rays if patient has difficulty with mobility today. 5. Medical management: Hospitalist service has been consulted for patient's medical comorbidities we will continue to manage her diabetes and other medical comorbidities. Tight control of blood sugars is important to help with infection control 6. ID: Infectious diseases on board. Patient will begin ceftriaxone today. Patient has coag negative staph which appears to be pansensitive. Gram stains are consistent with gram-positive cocci in clusters 3 out of 3. 7. Encourage incentive spirometry and ankle pumps. 8. Disposition: Likely disposition will be to home. However this will depend on patient's mobility over the next 48 hours. Will need to arrange appropriate antibiotic administration and wound care. We will follow the patient in the hospital over the weekend and obtain appropriate arrangements on Sunday after we have had time to follow cultures and finalized antibiotic plans with infectious disease. (2) Tobacco abuse: PLAN: Encourage cessation, per medicine service (3) Hypertension: PLAN: Well-controlled,per medicine service (4) History of myocardial infarction: PLAN: Stable, per medicine service (5) Hyperlipidemia: PLAN: Per medicine service (6) Diabetes mellitus: PLAN: Medicine service managing. Recommend tight control less than 180. [facility] Office:
[2022-01-15] MEDS: Insulin Lispro 100 UNIT/ML INSULN.PEN SC ×3 (11:46→21:31)
[2022-01-15 11:55] LABS: Bedside Glucose 174 mg/dL (74-106)
[2022-01-15 16:21] LABS: Bedside Glucose 174 mg/dL (74-106)
[2022-01-15 17:09] LABS: Vancomycin, Trough Level 18.3 ug/mL (5.0-15.0)
--- NOTE | 2022-01-15 18:36 | PCM.RX.CS ---
Consult Pharmacy has been consulted to manage selected antiobiotic: Vancomycin Type of Consult: Follow-up Prior Doses of Antibiotics Received/Current Regimen: Medications Vancomycin HCl 1,250 mg/ (Sodium Chloride) 275 mls @ 167 mls/hr IV Q24H JEN Last Admin: 01/15/22 17:55 Dose: Infused Documented by: Labs: Sodium 141 mmol/L (136-145) 01/15/22 04:54 Potassium 4.3 mmol/L (3.5-5.1) 01/15/22 04:54 Chloride 110 mmol/L (98-107) H 01/15/22 04:54 Carbon Dioxide 25.0 mmol/L (21.0-32.0) 01/15/22 04:54 Anion Gap 6 (5-15) 01/15/22 04:54 BUN 11 mg/dL (7-18) 01/15/22 04:54 Creatinine 0.72 mg/dL (0.55-1.02) 01/15/22 04:54 Est GFR (MDRD) Af Amer 105 mL/min (>60) 01/15/22 04:54 Est GFR (MDRD) Non-Af 87 mL/min (>60) 01/15/22 04:54 BUN/Creatinine Ratio 15.3 RATIO (10-20) 01/15/22 04:54 Glucose 151 mg/dL (74-106) H 01/15/22 04:54 Vancomycin Trough 18.3 ug/mL (5.0-15.0) H 01/15/22 16:31 Microbiology: Microbiology 01/13/22 12:17 Tissue - Knee Gram Stain - Final 01/13/22 12:17 Tissue - Knee Wound Culture - Preliminary No growth-Final to follow 01/13/22 12:17 Tissue - Knee Anaerobic Culture - Preliminary No growth in 48 hours. 01/13/22 12:17 Tissue - Knee Gram Stain - Final 01/13/22 12:17 Tissue - Knee Wound Culture - Preliminary Staphylococcus species 01/13/22 12:17 Tissue - Knee Anaerobic Culture - Preliminary No growth in 48 hours. 01/13/22 12:17 Tissue - Knee Gram Stain - Final 01/13/22 12:17 Tissue - Knee Wound Culture - Preliminary No growth-Final to follow 01/13/22 12:17 Tissue - Knee Anaerobic Culture - Preliminary No growth in 48 hours. 01/13/22 12:17 Tissue - Knee Gram Stain - Final 01/13/22 12:17 Tissue - Knee Wound Culture - Preliminary No growth-Final to follow 01/13/22 12:17 Tissue - Knee Anaerobic Culture - Preliminary No growth in 48 hours. 01/10/22 10:38 Swab (Method) Nasal Screen MRSA/MSSA - Final Weight used for dosin kg Goal Trough: 10-15 mcg/mL Pharmacy Plan for Drug Dosing: Trough above goal. Dose already given. Re-start tomorrow after an extra 25% of interval and reduce to 1000mg IV q24h. Pharmacy Service will continue to monitor and adjust dosing as required. Follow-Up Labs: Trough Vancomycin - 01/18 @ 1928
[2022-01-15] MEDS: Pramipexole Di-HCl 0.25 MG Tablet PO (21:23)
[2022-01-15] MEDS: Pravastatin 20 MG Tablet PO (21:24)
[2022-01-15 21:41] LABS: Bedside Glucose 191 mg/dL (74-106)
[2022-01-16 05:08] VITALS: BP 161/70; PULSE 93; RESP 16; TEMP 37.2; O2SAT 96
[2022-01-16] MEDS: Acetaminophen 500 MG Tablet 1000 MG PO ×2 (05:09→14:21)
[2022-01-16 05:49] LABS: Hematocrit 29.6 % (37-47); Hemoglobin 9.7 g/dL (12.0-15.0); Mean Corp Hgb Conc 32.8 g/dL (32-36); Mean Corpuscular Volume 88.4 fL (81-99); Mean Platelet Vol. 9.5 fl (6.2-12.0); Platelet Count 405 K/mm3 (150-450); RBC Distribution Width CV 12.5 % (11.6-14.6); Red Blood Count 3.35 M/mm3 (4.2-5.4); White Blood Count 11.3 K/mm3 (4.4-11.0)
[2022-01-16] MEDS: Insulin Lispro 100 UNIT/ML INSULN.PEN SC ×2 (06:22→12:51)
[2022-01-16 06:31] LABS: ALB/GLOB Ratio 0.6 RATIO (0.9-2.4); AST(SGOT) 10 U/L (15-37); Alanine Aminotransfer ALT/SGPT 18 U/L (13-56); Albumin, Serum 2.4 g/dL (3.2-5.0); Alkaline Phosphatase 82 U/L (45-117); Anion Gap 7 (5-15); BUN 10 mg/dL (7-18); BUN/Creat Ratio 12.3 RATIO (10-20); Calcium,Total 9.3 mg/dL (8.5-10.1); Chloride 107 mmol/L (98-107); Creatinine, Serum 0.81 mg/dL (0.55-1.02); EST Glomerular Filtration Rate 75 mL/min (>60); Est Glom Filt Rate - Afr Amer 91 mL/min (>60); Estimated Creatinine Clearance 68.23 ml/min; Globulin 3.8 g/dL (2.2-4.2); Glucose 174 mg/dL (74-106); Protein, Total 6.2 g/dL (6.4-8.2); Sodium Level 140 mmol/L (136-145)
[2022-01-16 06:35] LABS: Bedside Glucose 165 mg/dL (74-106)
[2022-01-16 06:56] VITALS: PULSE 92; RESP 16; O2SAT 95
[2022-01-16] MEDS: Ipratropium/Albuterol Sulfate 3 ML AMPUL.NEB INHALATION ×2 (06:56→13:26)
[2022-01-16] MEDS: Budesonide Respules 0.5 MG/2 ML AMPUL.NEB. INHALATION (06:56)
--- NOTE | 2022-01-16 07:24 | PCM.PN.HOSP ---
Objective Data Objective Data Vital Signs: Vital Signs Temp Pulse Resp BP Pulse Ox 98.9 F 92 16 161/70 H 95 01/16/22 05:08 01/16/22 06:56 01/16/22 06:56 01/16/22 05:08 01/16/22 06:56 Oxygen Flow Rate (L/min) 2 Oxygen Delivery Method Room Air Weight: 141 lb 15.643 oz Body Mass Index (BMI) 22.2 Intake & Output: Intake and Output for Last 24 Hours 01/14/22 01/15/22 01/16/22 23:59 23:59 23:59 Intake Total 1175 / 1175 825 / 825 Output Total 1999 Balance -825 / -825 825 / 825 Lab / Micro Data Result Diagrams: 01/16/22 04:08 01/16/22 04:08 Labs: Laboratory Results - last 24 hr 01/15/22 11:40: POC Glucose 174 H 01/15/22 15:56: POC Glucose 174 H 01/15/22 16:31: Vancomycin Trough 18.3 H 01/15/22 21:30: POC Glucose 191 H 01/16/22 04:08: WBC 11.3 H, RBC 3.35 L, Hgb 9.7 L, Hct 29.6 L, MCV 88.4, MCH 29.0, MCHC 32.8, RDW Std Deviation 40.0, RDW Coeff of Ivanna 12.5, Plt Count 405, MPV 9.5 01/16/22 04:08: Sodium 140, Potassium 4.0, Chloride 107, Carbon Dioxide 26.0, Anion Gap 7, BUN 10, Creatinine 0.81, Estim Creat Clear Calc 68.23, Est GFR (MDRD) Af Amer 91, Est GFR (MDRD) Non-Af 75, BUN/Creatinine Ratio 12.3, Glucose 174 H, Calcium 9.3, Total Bilirubin 0.30, AST 10 L, ALT 18, Alkaline Phosphatase 82, Total Protein 6.2 L, Albumin 2.4 L, Globulin 3.8, Albumin/Globulin Ratio 0.6 L 01/16/22 06:21: POC Glucose 165 H Micro: Microbiology 01/13/22 12:17 Tissue - Knee Gram Stain - Final 01/13/22 12:17 Tissue - Knee Wound Culture - Preliminary No growth-Final to follow 01/13/22 12:17 Tissue - Knee Anaerobic Culture - Preliminary No growth in 48 hours. 01/13/22 12:17 Tissue - Knee Gram Stain - Final 01/13/22 12:17 Tissue - Knee Wound Culture - Preliminary Staphylococcus species 01/13/22 12:17 Tissue - Knee Anaerobic Culture - Preliminary No growth in 48 hours. 01/13/22 12:17 Tissue - Knee Gram Stain - Final 01/13/22 12:17 Tissue - Knee Wound Culture - Preliminary No growth-Final to follow 01/13/22 12:17 Tissue - Knee Anaerobic Culture - Preliminary No growth in 48 hours. 01/13/22 12:17 Tissue - Knee Gram Stain - Final 01/13/22 12:17 Tissue - Knee Wound Culture - Preliminary No growth-Final to follow 01/13/22 12:17 Tissue - Knee Anaerobic Culture - Preliminary No growth in 48 hours. 01/10/22 10:38 Swab (Method) Nasal Screen MRSA/MSSA - Final Physical Exam Narrative Seen and examined. Patient is doing good with physical therapy. Left knee with knee immobilizer. General: Alert, Oriented x3, Cooperative HEENT: Atraumatic, PERRLA, EOMI, Normocephalic Oral: No Gingival or Mucosal Lesions/ Ulcerations Neck: Supple, No JVD, Negative Carotid Bruits Lungs: Air entry diminished in bilateral lung bases. No crepitation/rhonchi Cardiovascular: Regular rate, Regular Rhythm, Normal S1, Normal S2, No murmurs Abdomen: Bowel Sounds Present, Soft, Non Tender, Non-Distended : No renal angle tenderness. No suprapubic tenderness. Extremities: No edema, Capillary Refill Less than 3 Seconds Skin: No rashes, No breakdown Musculoskeletal: Left knee injury into surgery. Left knee immobilizer. Neurological: Cranial nerves II-XII grossly intact, DTR 2+/4 and Symmetrical, Neuro grossly intact Psych/Mental Status: Normal Affect, Appropriate Assessment & Plan Assessment/Plan (1) Hypertension: QUALIFIERS: Hypertension type: primary hypertension Qualified Code(s): I10 - Essential (primary) hypertension PLAN: 66-year-old female with past medical history of knee replacement was admitted with progressive left knee pain, redness, swelling and drainage. Patient had completed antibiotics in the outpatient. Hospital medicine has been consulted for postop medical management. 1. Left knee prosthetic joint infection: Patient had explant left TKR, placement of nonbiodegradable delivery system and sinus tract excision on 01/13/2022. Ortho follow-up reviewed. ID has been consulted. On IV vancomycin and IV ceftriaxone. Gram stain consistent with gram-positive cocci in cluster and culture showing MRSE 2. Hypertension, controlled, continue losartan, metoprolol 3. CAD/hyperlipidemia, stable, continue on aspirin, plavix isosorbide, losartan, metoprolol, pravastatin 4. Type II DM, blood sugars are fairly controlled, continue metformin, Jardiance and ISS 5. COPD, not in acute exacerbation, continue on budesonide, breathing treatments as needed 6. DVT PPx- aspirin BID 7. Disposition: Possible Home Charges/Coding Visit Charges Inpatient E&M: 43668 Subs Hosp L2
[2022-01-16 08:00] VITALS: BP 156/77; PULSE 93; RESP 18; TEMP 36.7; O2SAT 96
[2022-01-16] MEDS: metFORMIN HCl 1,000 MG Tablet 1000 MG PO (08:59)
[2022-01-16] MEDS: Pantoprazole Sodium 20 MG Tablet PO (08:59)
[2022-01-16] MEDS: Senna/Docusate Sodium 1 Tablet 2 TABLET PO (08:59)
[2022-01-16] MEDS: Aspirin 81 MG TAB.CHEW PO ×2 (09:00→16:48)
[2022-01-16] MEDS: Isosorbide Mononitrate 60 MG Tablet PO (09:00)
[2022-01-16] MEDS: Sertraline 50 MG Tablet 25 MG PO (09:00)
[2022-01-16] MEDS: Cholecalciferol (Vit D3) 125 MCG CAPSULE (5,000 UNITS) PO ×2 (09:00)
[2022-01-16 09:01] VITALS: BP 156/77; PULSE 93
[2022-01-16] MEDS: Metoprolol Tartrate 50 MG Tablet PO (09:01)
[2022-01-16] MEDS: Empagliflozin 25 MG Tablet PO (09:01)
[2022-01-16] MEDS: Losartan Potassium 50 MG Tablet PO (09:01)
[2022-01-16] MEDS: Famotidine 20 MG Tablet PO (09:02)
[2022-01-16] MEDS: Ensure Surgery 237 ML LIQUID PO ×2 (09:05→12:53)
[2022-01-16] MEDS: oxyCODONE 5 MG Tablet PO ×2 (09:05→15:24)
[2022-01-16] MEDS: Clopidogrel Bisulfate 75 MG Tablet PO (09:12)
[2022-01-16 11:46] LABS: Bedside Glucose 192 mg/dL (74-106)
--- NOTE | 2022-01-16 11:58 | NURSING ---
production line technician here at this time for PICC line placement.
--- NOTE | 2022-01-16 12:17 | CASEMGMT ---
Addendum entered by Dari Wilson 01/16/22 16:46: Received call back from Madeline at [facility], pt will pay $56.22 for the first week and then the insurance will be billed. This will meet her out of pocket. Madeline will call pt now to make aware. Addendum entered by Dari Wilson 01/16/22 16:04: Pt in room, answered all of his questions. They are aware that [facility] will be in touch to make aware of cost of medication. Pt states cost will not be an issue. She does not want to go to SNF for the med and therapy. Addendum entered by Dari Wilson 01/16/22 15:56: Received tc from Madeline at [facility] stating she does not have benefits back from insurance as they are very busy. States if they come back today, she will be there until 5p the med could be delivered by noon or 1pm tomorrow. TC to Madeline at [facility] to make aware. They are able to accommodate this. TC back to Madeline to make aware of this, left her a vm. Notified pt as well. Addendum entered by Dari Wilson 01/16/22 14:54: MICHELLE ENNIS in to pt room to make aware that [facility] has accepted and the plan will be for them to start the dose in the morning with dc today. She is aware we are waiting for cost of med and benefits back from [facility]. Addendum entered by Dari Wilson 01/16/22 14:26: Faxed [facility] DC instructions. Faxed [facility] IV script. Addendum entered by Dari Wilson 01/16/22 14:23: Ok for HHC to start in the AM per ID. Notified Madeline at [facility] of this. TC to [facility], spoke with Madeline, she is waiting for benefits to come back and states should be able to get med there by AM. Addendum entered by Dari Wilson 01/16/22 14:19: Received call back from [facility] Madeline, able to accept pt for SOC tomorrow. Addendum entered by Dari Wilson 01/16/22 13:02: RN CM in to pt room, she is also unable to get ahold of her . She asks if [facility] could see her so she could keep everything local. TC to [facility], left message with Madeline castillo for referral. Will await returned call. Pt agreeable to [facility] for infusion. Faxed referral info to [facility] with script and picc info. Original Note: TC to pt per pt request to obtain preferred providers, vm full and cannot accept messages.
[2022-01-16 13:27] VITALS: RESP 18
--- NOTE | 2022-01-16 13:56 | PCM.PN.ORT ---
Subjective Subjective Patient lying in bed resting comfortably. Patient lying in bed patient lying in bed resting comfortably. Pain is been very well managed. Patient states she is quite anxious to return home. Patient denies chest pain, shortness of breath, calf pain, nausea vomiting. Patient has no other complaints at this time. Objective Data Objective Data Vital Signs: Vital Signs Temp Pulse Resp BP Pulse Ox 98.0 F 93 18 156/77 H 96 01/16/22 08:00 01/16/22 09:01 01/16/22 13:27 01/16/22 09:01 01/16/22 08:00 Oxygen Flow Rate (L/min) 2 Oxygen Delivery Method Room Air Weight: 64.4 kg Body Mass Index (BMI) 22.2 Intake & Output: Intake and Output for Last 24 Hours 01/14/22 01/15/22 01/16/22 23:59 23:59 23:59 Intake Total 1175 / 1175 825 / 825 8.33 / 8.33 Output Total 1999 Balance -825 / -825 825 / 825 8.33 / 8.33 Lab / Micro Data Result Diagrams: 01/16/22 04:08 01/16/22 04:08 Labs: Laboratory Results - last 24 hr 01/15/22 15:56: POC Glucose 174 H 01/15/22 16:31: Vancomycin Trough 18.3 H 01/15/22 21:30: POC Glucose 191 H 01/16/22 04:08: WBC 11.3 H, RBC 3.35 L, Hgb 9.7 L, Hct 29.6 L, MCV 88.4, MCH 29.0, MCHC 32.8, RDW Std Deviation 40.0, RDW Coeff of Ivanna 12.5, Plt Count 405, MPV 9.5 01/16/22 04:08: Sodium 140, Potassium 4.0, Chloride 107, Carbon Dioxide 26.0, Anion Gap 7, BUN 10, Creatinine 0.81, Estim Creat Clear Calc 68.23, Est GFR (MDRD) Af Amer 91, Est GFR (MDRD) Non-Af 75, BUN/Creatinine Ratio 12.3, Glucose 174 H, Calcium 9.3, Total Bilirubin 0.30, AST 10 L, ALT 18, Alkaline Phosphatase 82, Total Protein 6.2 L, Albumin 2.4 L, Globulin 3.8, Albumin/Globulin Ratio 0.6 L 01/16/22 06:21: POC Glucose 165 H 01/16/22 11:35: POC Glucose 192 H Micro: Microbiology 01/13/22 12:17 Tissue - Knee Gram Stain - Final 01/13/22 12:17 Tissue - Knee Wound Culture - Final No growth aerobically. 01/13/22 12:17 Tissue - Knee Anaerobic Culture - Preliminary No growth in 48 hours. 01/13/22 12:17 Tissue - Knee Gram Stain - Final 01/13/22 12:17 Tissue - Knee Wound Culture - Final No growth aerobically. 01/13/22 12:17 Tissue - Knee Anaerobic Culture - Preliminary No growth in 48 hours. 01/13/22 12:17 Tissue - Knee Gram Stain - Final 01/13/22 12:17 Tissue - Knee Wound Culture - Final Staphylococcus epidermidis 01/13/22 12:17 Tissue - Knee Anaerobic Culture - Preliminary No growth in 48 hours. 01/13/22 12:17 Tissue - Knee Gram Stain - Final 01/13/22 12:17 Tissue - Knee Wound Culture - Final No growth aerobically. 01/13/22 12:17 Tissue - Knee Anaerobic Culture - Preliminary No growth in 48 hours. 01/10/22 10:38 Swab (Method) Nasal Screen MRSA/MSSA - Final Physical Exam Narrative I found patient lying comfortably in bed. She was awake. Patient in no respiratory distress. Patient has full range of motion of the upper extremities without limitations. Full range of motion of the right hip knee and ankle. The left knee is in a knee immobilizer. The dressings clean dry intact. Patient has no calf tenderness. Neurovascular she is otherwise intact. Patient is afebrile. Const alert and oriented x3 Eyes PERRL Cardio regular rate Neuro CN's II-XII intact bilaterally Psych mental status grossly normal and affect normal Assessment & Plan Assessment/Plan (1) Prosthetic joint infection: QUALIFIERS: Encounter type: subsequent encounter Qualified Code(s): T84.50XD - Infection and inflammatory reaction due to unspecified internal joint prosthesis, subsequent encounter PLAN: 1. Continue all pain medications as prescribed 2. Aspirin 81 mg 1 p.o. every 12 hours x30 days for postop DVT prophylaxis 3. Toe-touch weightbearing only. Patient must wear the knee immobilizer at all times. 4. Patient will begin outpatient antibiotic treatments which will be scheduled prior to her discharge. 5. Patient will follow with Dr. Goff in 2 weeks
--- NOTE | 2022-01-16 13:57 | PCM.PN.ID ---
Physical Exam Narrative Feeling ok, pain controlled, no fever, no n/v/d. Const alert and no apparent distress General Appearance: cooperative Resp normal air movement and clear to auscultation bilaterally Cardio regular rate and regular rhythm GI soft to palpation, non-tender and non-distended Skin no rashes or lesions noted ID ID: Route of nutrition/ use of supplements: [] Nutritional Intake: [] IV Site: [] Cohn Catheter: [] Assessment & Plan Assessment/Plan (1) Prosthetic joint infection: PLAN: Recent wound cx with MS-staph warneri and strep. Now s/p I&D and spacer placement by Dr. Goff 01/13/22. Surg cx with E. Colten for discharge on 6 weeks iv vanc, stop date 02/24/22 with weekly labs and ID followup in 2 weeks. Wrote rx, d/w Dr. Goff and rn case manager hospice. Will follow
--- NOTE | 2022-01-16 14:04 | EX.PCM.DISCH ---
Discharge Instructions Diet Discharge Diet: No restrictions Activity Discharge Activity: May Not Drive, May Shower and Use Walker May shower in (days): 5 May resume sexual activity in: No Restrictions Ice area for (Minutes): 30 Weight Bearing Status: Toe touch weight bearing Keep extremity elevated above heart level: Operative Extremity Dressing / Incision Call your doctor if your incision/area has: Continuous Slow Oozing, Sudden Increased Bleeding, Increased Pain/ Swelling, Increased Redness, Foul Smelling Discharge and Swelling at the incision site Call your doctor if you observe: Fever of 101 or Higher and Change in Color Remove Dressing in: 5 days Cleanse incision/area with: Soap & Water Follow Up Care Please Follow Up With: Efren Goff MD When: 2 weeks Test Results: Test results from this visit will be discussed in further detail at your follow-up appointment, if applicable. Discharge Plan Admission Admit Date/Time: 01/13/22 11:39 Primary Reason for Your Visit: Infected prosthetic joint Attending Provider: Efren Goff Primary Care Provider: Zoila Sweeney Consulting Providers: George Kaplan ; Levar Ribera ; Afshin Muñoz Discharge Orders/Prescriptions Prescriptions: New vancomycin in dextrose 5 % 1 gram/200 mL Piggyback 1,000 mg IV Q24H 39 Days RF: 0 acetaminophen 500 mg Tablet 1,000 mg PO Q8 Qty: 90 RF: 0 aspirin 81 mg Tablet,Chewable 81 mg PO BIDCM 14 Days Qty: 28 RF: 0 oxycodone 5 mg Tablet 5 - 10 mg PO Q4H PRN PRN (Reason: Pain Score 4-10) 7 Days Qty: 56 RF: 0 Continued losartan 50 mg Tablet 50 mg PO DAILY RF: 0 fluticasone propion-salmeterol [Advair Diskus] 250-50 mcg/dose Blister With Device 1 inh INHALATION BID RF: 0 aspirin 81 mg Tablet,Delayed Release (Dr/Ec) 81 mg PO DAILY RF: 0 pantoprazole 20 mg Tablet,Delayed Release (Dr/Ec) 20 mg PO DAILY RF: 0 isosorbide mononitrate 60 mg Tablet Extended Release 24 Hr 60 mg PO DAILY RF: 0 ferrous sulfate [iron] 325 mg (65 mg iron) Tablet 325 mg PO QODAY RF: 0 metformin 1,000 mg Tablet 1,000 mg PO BID RF: 0 ropinirole 0.5 mg Tablet 0.5 mg PO QHS RF: 0 metoprolol tartrate 50 mg Tablet 50 mg PO BID RF: 0 pravastatin 20 mg Tablet 20 mg PO QHS RF: 0 albuterol sulfate [ProAir HFA] 90 mcg/actuation Hfa Aerosol Inhaler 1 inh INHALATION Q6H PRN (Reason: SOB) RF: 0 cholecalciferol (vitamin D3) [Vitamin D3] 125 mcg (5,000 unit) Tablet 125 mcg PO DAILY RF: 0 Spiriva Respimat 2.5 mcg/actuation Mist 2 puff INHALATION DAILY RF: 0 Healthy Beets 1 cap PO/SL DAILY RF: 0 cyanocobalamin (vitamin B-12) [B-12 DOTS] 500 mcg Tablet 500 mcg PO DAILY RF: 0 sertraline [Zoloft] 25 mg Tablet 25 mg PO DAILY RF: 0 acetaminophen 500 mg Capsule 500 mg PO Q6H PRN (Reason: Inflammation) RF: 0 Probiotic 3 billion cell Capsule 3,000 mmu cells PO DAILY RF: 0 Jardiance 25 mg Tablet 25 mg PO DAILY RF: 0 Discontinued amoxicillin-pot clavulanate 875-125 mg Tablet 1 tab PO BID RF: 0 No Action clopidogrel [Plavix] 75 mg Tablet 75 mg PO DAILY RF: 0 Referrals / Follow Up: Zoila Sweeney DO [Primary Care Provider] - Disposition Disposition (needs filled in before D/C Order can be placed): Home, Self Care
[2022-01-16 16:50] VITALS: BP 126/67; PULSE 97; RESP 18; TEMP 36.8; O2SAT 100
--- NOTE | 2022-01-23 09:30 | PCM.DC.SUM ---
Providers Date of Admission: 01/13/22 Primary Care Physician: Dr. Zoila Sweeney DO Consultations 01/13/22 11:38 Consult: Infectious Disease Routine Consulting Provider: Levar Ribera Reason for Consult: l knee PJI EMERGENT Consult: No MD Notified: Yes Date Notified: 01/13/22 Time Notified: 16:39 Method of Notification: via answering service 01/13/22 11:39 Consult: Hospitalist Routine Consulting Provider: George Kaplan Reason for Consult: post op med management EMERGENT Consult: No Notified: Yes Date Notified: 01/13/22 Time Notified: 16:35 Method of Notification: via text Reason For Visit: L TOTAL KNEE EXPLANT,PLACEMENT ATB SPACER Diagnosis Discharge Diagnosis (1) Prosthetic joint infection: Status: Acute Code(s): T84.50XA - Infection and inflammatory reaction due to unspecified internal joint prosthesis, initial encounter Qualifiers: Encounter type: subsequent encounter Qualified Code(s): T84.50XD - Infection and inflammatory reaction due to unspecified internal joint prosthesis, subsequent encounter Medications at Discharge Home Medications Healthy Beets 1 cap PO/SL DAILY 09/12/21 Spiriva Respimat 2 puff INHALATION DAILY 09/12/21 albuterol sulfate [ProAir HFA] 1 inh INHALATION Q6H PRN 09/12/21 aspirin 81 mg PO DAILY 09/12/21 cholecalciferol (vitamin D3) [Vitamin D3] 125 mcg PO DAILY 09/12/21 clopidogrel [Plavix] 75 mg PO DAILY 09/12/21 ferrous sulfate [iron] 325 mg PO QODAY 09/12/21 fluticasone propion-salmeterol [Advair Diskus] 1 inh INHALATION BID 09/12/21 isosorbide mononitrate 60 mg PO DAILY 09/12/21 losartan 50 mg PO DAILY 09/12/21 metformin 1,000 mg PO BID 09/12/21 metoprolol tartrate 50 mg PO BID 09/12/21 pantoprazole 20 mg PO DAILY 09/12/21 pravastatin 20 mg PO QHS 09/12/21 ropinirole 0.5 mg PO QHS 09/12/21 Jardiance 25 mg PO DAILY 11/15/21 Probiotic 3,000 mmu cells PO DAILY 11/15/21 acetaminophen 500 mg PO Q6H PRN 11/15/21 cyanocobalamin (vitamin B-12) [B-12 DOTS] 500 mcg PO DAILY 11/15/21 sertraline [Zoloft] 25 mg PO DAILY 11/15/21 acetaminophen 1,000 mg PO Q8 #90 tab 01/16/22 aspirin 81 mg PO BIDCM 14 Days #28 tab 01/16/22 oxycodone 5 - 10 mg PO Q4H PRN PRN 7 Days #56 tab 01/16/22 vancomycin in dextrose 5 % 1,000 mg IV Q24H 39 Days ml 01/16/22 Hospital Course Operations - (Left total knee infection, components of the total knee arthroplasty were removed, cement spacer placed.) Procedures PICC line placement Summary of Care Provided Minutes Spent on Discharge: 45 Hospital Course: Postoperatively patient stay was uneventful. Patient was medically managed by medicine, infectious disease evaluated the patient and sent a postoperative antibiotic plan. Patient did have a PICC line placed for outpatient antibiotic therapy. Patient remained stable. Patient's stay overall was uneventful Physical Exam Narrative Patient lying in bed alert. No respiratory distress, speaking in full sentences. The dressing was clean dry intact. Patient was in a knee immobilizer. Patient had no calf tenderness, signs or symptoms of DVT. Neurovascular is otherwise intact. Const alert, oriented x3, no apparent distress and well nourished General Appearance: cooperative and comfortable Orientation / Consciousness: awake and oriented to person HEENT normocephalic Eyes PERRL Resp Effort and Inspection: able to speak in complete sentences Cardio regular rate Neuro oriented x3 and CN's II-XII intact bilaterally Psych Thought Content: normal thought content Memory / Cognition: memory grossly intact Weight / BMI Weight Weight: 64.4 kg Body Mass Index (BMI) 22.2 ABG / Lab / Microbiology Data Result Diagrams: 01/16/22 04:08 01/16/22 04:08 Microbiology: Microbiology 01/13/22 12:17 Tissue - Knee Gram Stain - Final 01/13/22 12:17 Tissue - Knee Wound Culture - Final No growth aerobically. 01/13/22 12:17 Tissue - Knee Anaerobic Culture - Final No anaerobic bacteria isolated. 01/13/22 12:17 Tissue - Knee Gram Stain - Final 01/13/22 12:17 Tissue - Knee Wound Culture - Final No growth aerobically. 01/13/22 12:17 Tissue - Knee Anaerobic Culture - Final No anaerobic bacteria isolated. 01/13/22 12:17 Tissue - Knee Gram Stain - Final 01/13/22 12:17 Tissue - Knee Wound Culture - Final No growth aerobically. 01/13/22 12:17 Tissue - Knee Anaerobic Culture - Final No anaerobic bacteria isolated. 01/13/22 12:17 Tissue - Knee Gram Stain - Final 01/13/22 12:17 Tissue - Knee Wound Culture - Final Staphylococcus epidermidis 01/13/22 12:17 Tissue - Knee Anaerobic Culture - Final No anaerobic bacteria isolated. 01/10/22 10:38 Swab (Method) Nasal Screen MRSA/MSSA - Final D/C Instructions Discharge Diet: No restrictions May shower in (days): 5 May resume sexual activity in: No Restrictions Ice area for (Minutes): 30 Weight Bearing Status: Toe touch weight bearing Keep extremity elevated above heart level: Operative Extremity Call your doctor if your incision/area has: Continuous Slow Oozing, Sudden Increased Bleeding, Increased Pain/ Swelling, Increased Redness, Foul Smelling Discharge and Swelling at the incision site Call your doctor if you observe: Fever of 101 or Higher and Change in Color Cleanse incision/area with: Soap & Water Please Follow Up With: Efren Goff MD When: 2 weeks Meaningful Use Info Meaningful Use Diagnoses (Choose all that apply): None applicable Discharge Plan Admission Admit Date/Time: 01/13/22 11:39 Primary Reason for Your Visit: Infected prosthetic joint Attending Provider: Efren Goff Primary Care Provider: Zoila Sweeney Consulting Providers: George Kaplan ; Levar Ribera ; Afshin Muñoz Discharge Orders/Prescriptions Prescriptions: New vancomycin in dextrose 5 % 1 gram/200 mL Piggyback 1,000 mg IV Q24H 39 Days RF: 0 acetaminophen 500 mg Tablet 1,000 mg PO Q8 Qty: 90 RF: 0 aspirin 81 mg Tablet,Chewable 81 mg PO BIDCM 14 Days Qty: 28 RF: 0 oxycodone 5 mg Tablet 5 - 10 mg PO Q4H PRN PRN (Reason: Pain Score 4-10) 7 Days Qty: 56 RF: 0 Continued losartan 50 mg Tablet 50 mg PO DAILY RF: 0 fluticasone propion-salmeterol [Advair Diskus] 250-50 mcg/dose Blister With Device 1 inh INHALATION BID RF: 0 aspirin 81 mg Tablet,Delayed Release (Dr/Ec) 81 mg PO DAILY RF: 0 pantoprazole 20 mg Tablet,Delayed Release (Dr/Ec) 20 mg PO DAILY RF: 0 isosorbide mononitrate 60 mg Tablet Extended Release 24 Hr 60 mg PO DAILY RF: 0 ferrous sulfate [iron] 325 mg (65 mg iron) Tablet 325 mg PO QODAY RF: 0 metformin 1,000 mg Tablet 1,000 mg PO BID RF: 0 ropinirole 0.5 mg Tablet 0.5 mg PO QHS RF: 0 metoprolol tartrate 50 mg Tablet 50 mg PO BID RF: 0 pravastatin 20 mg Tablet 20 mg PO QHS RF: 0 albuterol sulfate [ProAir HFA] 90 mcg/actuation Hfa Aerosol Inhaler 1 inh INHALATION Q6H PRN (Reason: SOB) RF: 0 cholecalciferol (vitamin D3) [Vitamin D3] 125 mcg (5,000 unit) Tablet 125 mcg PO DAILY RF: 0 Spiriva Respimat 2.5 mcg/actuation Mist 2 puff INHALATION DAILY RF: 0 Healthy Beets 1 cap PO/SL DAILY RF: 0 cyanocobalamin (vitamin B-12) [B-12 DOTS] 500 mcg Tablet 500 mcg PO DAILY RF: 0 sertraline [Zoloft] 25 mg Tablet 25 mg PO DAILY RF: 0 acetaminophen 500 mg Capsule 500 mg PO Q6H PRN (Reason: Inflammation) RF: 0 Probiotic 3 billion cell Capsule 3,000 mmu cells PO DAILY RF: 0 Jardiance 25 mg Tablet 25 mg PO DAILY RF: 0 Discontinued amoxicillin-pot clavulanate 875-125 mg Tablet 1 tab PO BID RF: 0 No Action clopidogrel [Plavix] 75 mg Tablet 75 mg PO DAILY RF: 0 Referrals / Follow Up: Zoila Sweeney DO [Primary Care Provider] - Disposition Disposition (needs filled in before D/C Order can be placed): Home Health Service
== END 2022-01-16 17:15 | disposition home health service (06) | DRG 487 ==
LOC: MS3 01-14 06:58
PROVIDERS: Anesthesiology; Internal Medicine; Internal Medicine Infectious Disease; Admitting Provider Specialist; PCP Family Medicine; Referring Provider Specialist; Visit Provider Specialist
PROC: 0SHD08Z Insertion of Spacer into Left Knee Joint, Open Approach (ICD-10-PCS; CPT 27488; principal; 2022-01-13 09:05)
DX: T84.54XA Infection and inflammatory reaction due to internal left knee prosthesis, initial encounter (principal); S81.002A Unspecified open wound, left knee, initial encounter; E11.9 Type 2 diabetes mellitus without complications; J44.9 Chronic obstructive pulmonary disease, unspecified; G25.81 Restless legs syndrome; E78.00 Pure hypercholesterolemia, unspecified; I25.10 Atherosclerotic heart disease of native coronary artery without angina pectoris; M19.90 Unspecified osteoarthritis, unspecified site; F17.210 Nicotine dependence, cigarettes, uncomplicated; E78.5 Hyperlipidemia, unspecified; I10 Essential (primary) hypertension; I25.2 Old myocardial infarction; Z79.82 Long term (current) use of aspirin; Z79.84 Long term (current) use of oral hypoglycemic drugs; Z79.02 Long term (current) use of antithrombotics/antiplatelets; Y84.8 Other medical procedures as the cause of abnormal reaction of the patient, or of later complication, without mention of misadventure at the time of the procedure
CPT/HCPCS: 36415; 36569; 73560; 80048; 80053; 80202; 82040; 82962; 83036; 83735; 85025; 85027; 87015; 87070; 87075; 87077; 87081; 87102; 87116; 87176; 87186; 87205; 87206; 94640; 97161; 97530; 99251; 99406; C1776; J7050; J7120; A4216; G0463; J0696; J2405; J3260

== ENCOUNTER → 2022-01-26 | Outpatient (CLI) | payer BC, SELFPAY ==
[2022-01-26 15:23] LABS: Potassium 4.1 mmol/L (3.5-5.1)
== END | disposition home or self-care (01) ==
LOC: HHLAB 15:07
PROVIDERS: PCP Family Medicine; Referring Provider Specialist; Visit Provider Specialist
DX: T84.54XA Infection and inflammatory reaction due to internal left knee prosthesis, initial encounter (principal); Y84.8 Other medical procedures as the cause of abnormal reaction of the patient, or of later complication, without mention of misadventure at the time of the procedure; B95.61 Methicillin susceptible Staphylococcus aureus infection as the cause of diseases classified elsewhere
CPT/HCPCS: 80202; 84132

== ENCOUNTER 2022-01-30 13:31 | Outpatient (RCR) | payer BC, SELFPAY ==
[2022-01-30 13:51] LABS: Hematocrit 33.8 % (37-47); Mean Corp Hgb Conc 32.5 g/dL (32-36); Mean Corpuscular Hgb 28.7 pg (27.0-32.0); Mean Corpuscular Volume 88.3 fL (81-99); Mean Platelet Vol. 9.3 fl (6.2-12.0); Platelet Count 565 K/mm3 (150-450); RBC Distribution Width CV 13.3 % (11.6-14.6); RBC Distribution Width SD 42.7 fl (35.1-43.9); Red Blood Count 3.83 M/mm3 (4.2-5.4); White Blood Count 6.5 K/mm3 (4.4-11.0)
[2022-01-30 14:15] LABS: Anion Gap 8 (5-15); BUN 17 mg/dL (7-18); BUN/Creat Ratio 16.8 RATIO (10-20); Calcium,Total 10.1 mg/dL (8.5-10.1); Chloride 110 mmol/L (98-107); Creatinine, Serum 1.01 mg/dL (0.55-1.02); EST Glomerular Filtration Rate 59 mL/min (>60); Erythrocyte Sedimentation Rate 22 mm/hr (0-30); Est Glom Filt Rate - Afr Amer 71 mL/min (>60); Glucose 77 mg/dL (74-106); Potassium 4.7 mmol/L (3.5-5.1); Sodium Level 141 mmol/L (136-145)
[2022-01-30 14:17] LABS: Vancomycin, Trough Level 7.9 ug/mL (5.0-15.0)
== END 2022-01-31 23:59 ==
LOC: HHLAB 13:31
PROVIDERS: Internal Medicine Infectious Disease; PCP Specialist; Referring Provider Specialist; Visit Provider Specialist
DX: T84.54XA Infection and inflammatory reaction due to internal left knee prosthesis, initial encounter (principal); B95.61 Methicillin susceptible Staphylococcus aureus infection as the cause of diseases classified elsewhere; I10 Essential (primary) hypertension; E11.9 Type 2 diabetes mellitus without complications; E78.00 Pure hypercholesterolemia, unspecified; I25.10 Atherosclerotic heart disease of native coronary artery without angina pectoris; Z79.01 Long term (current) use of anticoagulants; Z79.899 Other long term (current) drug therapy; J44.9 Chronic obstructive pulmonary disease, unspecified; I49.9 Cardiac arrhythmia, unspecified; I34.1 Nonrheumatic mitral (valve) prolapse; Z79.82 Long term (current) use of aspirin; Z79.84 Long term (current) use of oral hypoglycemic drugs
CPT/HCPCS: 80048; 80202; 85027; 85652

== ENCOUNTER → 2022-02-13 | Outpatient (CLI) | payer BC, SELFPAY ==
[2022-02-13 15:21] LABS: Anion Gap 9 (5-15); BUN 17 mg/dL (7-18); BUN/Creat Ratio 18.3 RATIO (10-20); Calcium,Total 9.9 mg/dL (8.5-10.1); Chloride 111 mmol/L (98-107); Creatinine, Serum 0.93 mg/dL (0.55-1.02); EST Glomerular Filtration Rate 64 mL/min (>60); Est Glom Filt Rate - Afr Amer 78 mL/min (>60); Glucose 93 mg/dL (74-106); Potassium 4.1 mmol/L (3.5-5.1); Sodium Level 141 mmol/L (136-145)
[2022-02-13 15:25] LABS: Vancomycin, Random Level 14.3 ug/mL (0.0-15.0)
[2022-02-13 15:46] LABS: Hematocrit 33.5 % (37-47); Hemoglobin 11.1 g/dL (12.0-15.0); Mean Corp Hgb Conc 33.1 g/dL (32-36); Mean Corpuscular Hgb 29.3 pg (27.0-32.0); Mean Corpuscular Volume 88.4 fL (81-99); Mean Platelet Vol. 9.6 fl (6.2-12.0); Platelet Count 339 K/mm3 (150-450); RBC Distribution Width CV 13.6 % (11.6-14.6); RBC Distribution Width SD 44.1 fl (35.1-43.9); Red Blood Count 3.79 M/mm3 (4.2-5.4); White Blood Count 8.1 K/mm3 (4.4-11.0)
[2022-02-13 15:48] LABS: Erythrocyte Sedimentation Rate 12 mm/hr (0-30)
== END | disposition home or self-care (01) ==
LOC: LABSPEC 14:23 → HHLAB 02-16 11:46
PROVIDERS: PCP Specialist; Visit Provider Specialist
DX: T87.44 Infection of amputation stump, left lower extremity (principal); Z96.652 Presence of left artificial knee joint; B95.61 Methicillin susceptible Staphylococcus aureus infection as the cause of diseases classified elsewhere
CPT/HCPCS: 80048; 80202; 85027; 85652

== ENCOUNTER 2022-02-20 15:13 | Outpatient (RCR) | payer BC, SELFPAY ==
[2022-02-06 15:49] LABS: Hematocrit 33.5 % (37-47); Hemoglobin 10.8 g/dL (12.0-15.0); Mean Corp Hgb Conc 32.2 g/dL (32-36); Mean Corpuscular Hgb 28.8 pg (27.0-32.0); Mean Corpuscular Volume 89.3 fL (81-99); Mean Platelet Vol. 9.7 fl (6.2-12.0); Platelet Count 371 K/mm3 (150-450); RBC Distribution Width CV 13.4 % (11.6-14.6); RBC Distribution Width SD 43.8 fl (35.1-43.9); Red Blood Count 3.75 M/mm3 (4.2-5.4); White Blood Count 6.7 K/mm3 (4.4-11.0)
[2022-02-06 15:56] LABS: Erythrocyte Sedimentation Rate 18 mm/hr (0-30)
[2022-02-06 16:05] LABS: Anion Gap 9 (5-15); BUN 18 mg/dL (7-18); BUN/Creat Ratio 17.3 RATIO (10-20); Chloride 109 mmol/L (98-107); Creatinine, Serum 1.04 mg/dL (0.55-1.02); EST Glomerular Filtration Rate 57 mL/min (>60); Est Glom Filt Rate - Afr Amer 69 mL/min (>60); Glucose 114 mg/dL (74-106); Potassium 4.2 mmol/L (3.5-5.1); Sodium Level 140 mmol/L (136-145)
[2022-02-06 16:08] LABS: Vancomycin, Trough Level 15.3 ug/mL (5.0-15.0)
[2022-02-20 15:37] LABS: Hematocrit 33.5 % (37-47); Hemoglobin 10.9 g/dL (12.0-15.0); Mean Corp Hgb Conc 32.5 g/dL (32-36); Mean Corpuscular Hgb 28.9 pg (27.0-32.0); Mean Corpuscular Volume 88.9 fL (81-99); Mean Platelet Vol. 9.7 fl (6.2-12.0); Platelet Count 358 K/mm3 (150-450); RBC Distribution Width CV 13.5 % (11.6-14.6); Red Blood Count 3.77 M/mm3 (4.2-5.4)
[2022-02-20 15:40] LABS: Erythrocyte Sedimentation Rate 10 mm/hr (0-30)
[2022-02-20 16:04] LABS: Anion Gap 9 (5-15); BUN 17 mg/dL (7-18); BUN/Creat Ratio 14.9 RATIO (10-20); Calcium,Total 9.9 mg/dL (8.5-10.1); Chloride 107 mmol/L (98-107); Creatinine, Serum 1.14 mg/dL (0.55-1.02); EST Glomerular Filtration Rate 51 mL/min (>60); Est Glom Filt Rate - Afr Amer 62 mL/min (>60); Glucose 139 mg/dL (74-106); Potassium 4.1 mmol/L (3.5-5.1); Sodium Level 140 mmol/L (136-145)
[2022-02-20 16:28] LABS: Vancomycin, Trough Level 12.6 ug/mL (5.0-15.0)
== END 2022-03-02 23:59 ==
LOC: HHLAB 15:13
PROVIDERS: Visit Provider Specialist
DX: T84.54XA Infection and inflammatory reaction due to internal left knee prosthesis, initial encounter (principal)
CPT/HCPCS: 80048; 80202; 85027; 85652

== ENCOUNTER → 2023-06-13 | Outpatient (CLI) | payer MEDICARE, BC, SELFPAY ==
[2023-06-15 12:09] LABS: QNTFERON TB Mitogen Value > 10.00 IU/mL (.); QNTFERON TB Nil Value 0.15 IU/mL (.); QNTFERON TB1+ Ag Value 0.12 IU/mL (.); QNTFERON TB2+ Ag Value 0.13 IU/mL (.); QNTIFERON TB Positive Criteria Negative (Negative)
== END | disposition home or self-care (01) ==
PROVIDERS: PCP Family Medicine; Referring Provider Physician Assistant Medical; Visit Provider Physician Assistant Medical
DX: L40.0 Psoriasis vulgaris (principal); Z79.899 Other long term (current) drug therapy
CPT/HCPCS: 36415; 86480

== ENCOUNTER → 2023-06-26 | Outpatient (CLI) | payer MEDICARE, BC, SELFPAY ==
[2023-06-28 05:07] LABS: Hepatitis B Core Ab Total Negative (Negative)
== END | disposition home or self-care (01) ==
LOC: MTLAB 11:47
PROVIDERS: PCP Family Medicine; Referring Provider Physician Assistant Medical; Visit Provider Physician Assistant Medical
DX: L40.0 Psoriasis vulgaris (principal); Z79.899 Other long term (current) drug therapy
CPT/HCPCS: 36415; 86704

== ENCOUNTER → 2024-01-30 | Outpatient (CLI) | payer MEDICARE, BC, SELFPAY ==
[2024-01-30 12:49] LABS: Absolute Lymphocyte Count 2.88 X10^3/uL (0.83-4.51); Absolute Neutrophil Count 3.5 X10^3/uL (2.0-7.7); Basophil# 0.07 X10^3/uL; Eosinophil# 0.12 X10^3/uL; Eosinophils% 1.6 % (0-5); Hematocrit 36.1 % (37-47); Hemoglobin 11.5 g/dL (12.0-15.0); Lymphocyte # 2.88 X10^3/ul (0.83-4.51); Lymphocyte % 39.2 % (19-41); Mean Corp Hgb Conc 31.9 g/dL (32-36); Mean Corpuscular Hgb 27.9 pg (27.0-32.0); Mean Corpuscular Volume 87.6 fL (81-99); Mean Platelet Vol. 9.3 fl (6.2-12.0); Monocyte# 0.74 X10^3/uL; Monocyte% 10.1 % (0-10); NRBC Flagged by Analyzer 0 % (0-5); Neutrophil # 3.51 X10^3/uL (2.7-7.7); Neutrophil % 47.7 % (47-70); Platelet Count 396 K/mm3 (150-450); RBC Distribution Width CV 12.1 % (11.6-14.6); RBC Distribution Width SD 38.8 fl (35.1-43.9); Red Blood Count 4.12 M/mm3 (4.2-5.4); White Blood Count 7.4 K/mm3 (4.4-11.0)
[2024-01-30 13:26] LABS: CRP 7.87 mg/L (0.0-3.0)
[2024-01-30 14:11] LABS: Erythrocyte Sedimentation Rate 4 mm/hr (0-30)
== END | disposition home or self-care (01) ==
LOC: LAB 12:09
PROVIDERS: PCP Family Medicine; Referring Provider Specialist; Visit Provider Specialist
DX: T84.84XA Pain due to internal orthopedic prosthetic devices, implants and grafts, initial encounter (principal)
CPT/HCPCS: 36415; 85025; 85652; 86140

== ENCOUNTER → 2024-07-15 | Outpatient (CLI) | payer MEDICARE, BC, SELFPAY ==
[2024-07-17 17:08] LABS: QNTFERON TB Mitogen Value > 10.00 IU/mL (.); QNTFERON TB Nil Value 0.77 IU/mL (.); QNTFERON TB1+ Ag Value 0.41 IU/mL (.); QNTFERON TB2+ Ag Value 0.39 IU/mL (.); QNTIFERON TB Positive Criteria Negative (Negative)
== END | disposition home or self-care (01) ==
LOC: MTLAB 13:11
PROVIDERS: PCP Family Medicine; Referring Provider Physician Assistant Medical; Visit Provider Physician Assistant Medical
DX: L40.0 Psoriasis vulgaris (principal)
CPT/HCPCS: 36415; 86480

== ENCOUNTER 2025-03-12 13:30 | Outpatient (RCR) | payer MEDICARE, BC, SELFPAY ==
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
--- NOTE | 2025-02-05 14:43 | HP.PTREVAL ---
Re-Evaluation Intro: Dr. Avtar Hudson MD, It has been my pleasure to treat CHELITA BUSHC over the last 9 visits for LUMBAR RADICULOPATHY AND SCOLIOSIS. Please see the progress note below for an update on the physical therapy plan of care! Subjective Subjective: PATIENT REPORTS SHE IS DOING A LOT BETTER. I CAN STAND AND WALK A LOT LONGER BUT I STILL GET THE PAIN IN THE LEFT HIP AND GROIN BUT NOT TOO OFTEN. SHE REPORTS SHE GETS THE PAIN WHEN SHE DOES A LOT OF BENDING AND GOT IT THE DAY AFTER SHE WAS WORKING IN HER FLOWER BEDS. STATES IT WENT AWAY AFTER SHE TOOK TYLONOL. BEFORE THE POOL THERAPY I COULDN'T HARDLY DO TOO MUCH WITHOUT THE PAIN. PATIENT REPORTS THE WATER THERAPY IS HELPING A LOT AND SHE WANTS TO CONTINUE TO TRY TO CONTINUE TO GET BETTER. STATES SHE IS STILL WAITING TO HEAR FROM PAIN MGMT. THIS PT ENCOURAGED PATIENT TO FOLLOW UP WITH DR. HUDSON'S OFFICE AND/OR DR. VALENTINE'S OFFICE ABOUT THE PAIN MGMT REFERRAL - PATIENT AGREEABLE AND STATES WHEN SHE INITIALLY CALLED DR. VALENTINE'S OFFICE THEY HAD NOT RECEIVED THE ORDER YET. INTERMITTENT L LOW BACK AND GROIN PAIN RNAGING 0-9/10 BUT NO LONGER GETTING PAIN DOWN L LE AND DENIES LLE NUMBNESS AND TINGLING. Objective Objective/Function: PATIENT WAS SEEN TODAY FOR RE-ASSESSMENT OF PROGRESS TOWARD THE SET PT GOALS AND THE NEED FOR FURTHER PHYSICAL THERAPY VS READINESS FOR DISCHARGE. THIS PATIENT IS MAKING SIGNIFICANT PROGRESS WITH PT AND IS A GOOD CANDIDATE TO CONTINUE PT BASED ON PROGRESS MADE AND ROOM FOR FURHTER IMPROVEMENT. PATIENT IS AGREEABLE. UPON EXAM TODAY: ROM deficit: MONICA HS AND CALF TIGHTNESS L > R. L KNEE AROM IN SITTING 0-0-131 DEG FLEXION. Motor deficit: R LE GROSSLY 5/5 EXCEPT HIP 4/5. . L LE STRENGTH: HIP 4-/5, KNEE EXT 4-/5, KNEE FLEX 4-/5, ANKLE DF 5/5 AND PF 5/5. PATIENT IS ABLE TO HEEL WALK AND WALK ON TOES WITHOUT UE ASSIST. Dural Signs: POSITIVE LLE Lumbar mvmt loss: flex - MIN ext - MOD R SG - MIN L SG - MOD PATIENT C/O L LBP WITH LUMBAR FLEX, EXT AND L SG TESTING BUT NW A RESULT TODAY. Core strength: POOR Palpation: INCREASED MUSCLE TONE MONICA LUMBAR PARASPINALS. PATIENT DENIES TENDERNESS WITH PALPATION OF LOWER THORACIC SPINE, LUMBAR SPINE, AND HIPS. PATIENT IS HAPPY WITH HOW MUCH BETTER L KNEE IS BENDING TODAY AND STATES AND IT DOESN'T HURT. L KNEE IS NOT TENDER TODAY AND L KNEE MMT IS TOLERATED MUCH BETTER. Plan Plan Plan: CONTINUE AQUATIC THERAPY 2X'S A WK X 9 VISITS THEN RE-CHECK FOR PAIN RELIEF, POSTURAL AND CORE STRENGTHENING, LUMBAR ROM. MONICA LE ROM, STRETCHING AND STRENGTHENING. HEP INSTRUCTION. Balance/Gait/Functional tests Balance/Special Test Scores Oswestry Low Back Score: 10 Goals Goals Goal 1:: DECREASE C/O LOW BACK AND LLE SX'S BY AT LEAST 50% TO EASE ADL'S Goal Time Frame: 4-6 Weeks Goal Progress: Progressing Goal 2:: IMPROVE LIFTING, WALKING, SITTING, STANDING, SOCIAL LIFE, TRAVEL AND HOMEMAKING FUNCTION WITH AT LEAST 8 POINT IMPROVEMENT IN LUMBAR OSWESTRY QUESTIONNAIRE SCORE Goal Time Frame: 4-6 Weeks Goal Progress: Goal Met Goal 3:: INSTRUCT IN PROPHYLAXIS Goal Time Frame: 4-6 Weeks Goal Progress: Progressing Anticipated Interventions Anticipated Interventions Patient/Client Instruction: Educate patient on: Condition, Plan of Care and Risk Factors For the Purpose of:: To improve self management Therapeutic Exercise to Include: Strength training, Body mechanics, Postural training, Flexibilty training, Neuromotor development, In an aquatic setting and Dynamic Lumbar Stabilization For the Purpose of:: To decrease pain, To improve muscle performance and motor function, To improve ability to perform ADL's, To increase tolerance to activity/condition/position, To improve ability of physical actions for home/community/work/leisure, To improve gait and locomotor functions and To improve self management Re-Evaluation Ending Re-evaluation ending: Please do not hesitate to contact me at [phone] by phone or if you have questions or concerns regarding this new plan of care! Sincerely, Madeline Louie, PT, Cert MDT
--- NOTE | 2025-03-12 14:02 | HP.PTDCSUM ---
Discharge Summary D/C summary: It has been my pleasure to treat CHELITA BUSCH referred by Dr. Avtar Hudson MD, with the diagnosis of LUMBAR RADICULOPATHY AND SCOLIOSIS for a total of 18 visit(s). Discharge Date: 03/12/25 Please see the following information for a summary of their discharge status. Subjective Subjective: PATIENT REPORTS SHE IS 100% BETTER. SHE STATES SHE CAN SIT LONG SHE WANTS AND WALK WITHOUT GETTING ANY CRAMPS. SHE REPORTS SHE MAKES SURE TO DO HER EX'S IN THE MORNING. I'M DOING GREAT. Pain LLE: Pain Intensity (Out of 10): 2 Overall Improvement % Improvement: 100 Objective Objective/Function: PATIENT WAS SEEN TODAY FOR RE-ASSESSMENT OF PROGRESS TOWARD THE SET PT GOALS AND THE NEED FOR FURTHER PHYSICAL THERAPY VS READINESS FOR DISCHARGE. THIS PATIENT HAS RESPONDED GREAT TO AQUATIC THERAPY AND HOME INSTRUCTIONS. SHE HAS BEEN VERY PLEASANT AND COOPERATIVE TO WORK WITH. ALL PT GOALS HAVE BEEN MET. SHE IS INDEP WITH HOME INSTRUCTIONS/HEP. SHE IS APPROPRIATE FOR AND AGREEABLE TO DISCHARGE. UPON EXAM TODAY: ROM deficit: MONICA HS AND CALF TIGHTNESS L > R. L KNEE AROM IN SITTING 0-0-133 DEG FLEXION. Motor deficit: R LE GROSSLY 5/5 L LE STRENGTH: HIP 4/5, KNEE EXT 4-/5, KNEE FLEX 4/5, ANKLE DF 5/5 AND PF 5/5. PATIENT IS ABLE TO HEEL WALK AND WALK ON TOES WITHOUT UE ASSIST. Dural Signs: NEGATIVE MONICA LE'S. Lumbar mvmt loss: flex - NIL ext - MIN R SG - NIL L SG - NIL PATIENT DENIES PAIN WITH LUMBAR ROM TESTING ALL PLANES. Core strength: FAIR Palpation: NO ACUTE TENDERNESS IN BACK OR KNEE TODAY. Goals Goal 1:: DECREASE C/O LOW BACK AND LLE SX'S BY AT LEAST 50% TO EASE ADL'S Goal Progress: Goal Met Goal 2:: IMPROVE LIFTING, WALKING, SITTING, STANDING, SOCIAL LIFE, TRAVEL AND HOMEMAKING FUNCTION WITH AT LEAST 8 POINT IMPROVEMENT IN LUMBAR OSWESTRY QUESTIONNAIRE SCORE Goal Progress: Goal Met Goal 3:: INSTRUCT IN PROPHYLAXIS Goal Progress: Goal Met Plan Plan: D/C D/C Information d/c sentence: If there are questions or concerns regarding this patient's physical therapy, please feel free to call me at [phone]. Thank you for the referral of this patient. Sincerely, Madeline A Cross, PT, Cert MDT Balance/Gait/Functional tests Balance/Special Test Scores Oswestry Low Back Score: 0 Improvement % Improvement: 100
== END 2025-03-12 19:00 | disposition home or self-care (01) ==
LOC: PT 13:30
PROVIDERS: PCP Family Medicine; Visit Provider Orthopaedic Surgery Orthopaedic Surgery of the Spine
DX: M54.16 Radiculopathy, lumbar region (principal); M41.9 Scoliosis, unspecified
CPT/HCPCS: 97112; 97113; 97162; 97530

== ENCOUNTER → 2025-04-22 | Outpatient (CLI) | payer MEDICARE, BC, SELFPAY ==
[2025-04-24 06:08] LABS: QNTFERON TB Mitogen Value > 10.00 IU/mL (.); QNTFERON TB Nil Value 0.17 IU/mL (.); QNTFERON TB1+ Ag Value 0.12 IU/mL (.); QNTFERON TB2+ Ag Value 0.12 IU/mL (.); QNTIFERON TB Positive Criteria Negative (Negative)
== END | disposition home or self-care (01) ==
LOC: MTLAB 15:22
PROVIDERS: PCP Family Medicine; Referring Provider Physician Assistant Medical; Visit Provider Physician Assistant Medical
DX: L40.0 Psoriasis vulgaris (principal)
CPT/HCPCS: 36415; 86480